=== PATIENT | female | born 1985 | race Caucasian/White ===

== ENCOUNTER 2016-07-10 06:45 | Inpatient (IN) | payer MEDICAID ==
[2016-07-10] MEDS ORDERED: PENICILLIN G-K 5 MILLION UNIT VIAL ONE ×3 (06:50→15:36)
[2016-07-10] MEDS ORDERED: OXYTOCIN/NORMAL SALINE 20 UNIT/1,000 ML RTUINJ ONE (07:22)
[2016-07-10 07:38] LABS: APPEARANCE,URINE CLOUDY; BILIRUBIN,URINE NEGATIVE (NEGATIVE); GLUCOSE, URINE NEGATIVE (NEGATIVE); KETONES,URINE NEGATIVE (NEGATIVE); LEUKOCYTE ESTERASE,URINE SMALL (NEGATIVE); NITRITE,URINE NEGATIVE (NEGATIVE); PROTEIN,URINE 30 mg/dL (NEGATIVE); UROBILINOGEN,URINE NEGATIVE mg/dL (<2.0)
[2016-07-10 07:58] LABS: URINE BARBITURATES SCREEN NEGATIVE; URINE METHADONE SCREEN NEGATIVE; URINE PHENCYCLIDINE SCREEN NEGATIVE
--- NOTE | 2016-07-10 08:01 | L&D Flow Sheet ---
LD Flowsheet Datetime Report Generated by CPN: 07/10/2016 08:00 Datetime: 07/10/2016 07:57 Pitocin (milliunit): Pitocin Increased to (milliunits) @ 4 (Dorie Edmundo, RN) Datetime: 07/10/2016 07:34 NBP Sys/Desire/Mean (mmHg): 127 (QS system process) : 81 (QS system process) : 99 (QS system process) Pulse: 83 (QS system process) LaborFlag: Antepartum (QS system process) Datetime: 07/10/2016 07:30 Monitor Mode: External; Palpation (Dorie Wyatt, RN) Frequency (min): irreg (Dorie Edmundo, RN) Quality: Mild (Dorie Edmundo, RN) Resting Tone (Palpate): Relaxed (Dorie Edmundo, RN) Monitor Mode: External US (Dorie Edmundo, RN) FHR Baseline Rate : 125 (Dorie Edmundo, RN) Variability: Moderate 6-25 bpm (Dorie Edmundo, RN) Accelerations: None (Dorie Edmundo, RN) Decelerations: None (Dorie Edmundo, RN) Datetime: 07/10/2016 07:27 Pitocin (milliunit): Pitocin Started (milliunits) @ 2 (Leilani Batista RN) Communication: RN at Bedside; RN Reviewed Strip; Report Given to @ Carley Wyatt RN (Leilani Batista RN) Communication Comments: Report given to Edmundo Sutton RN. Care relinquished at this time. (Leilani Batista, RN) Datetime: 07/10/2016 07:20 Antibiotics: Penicillin IV (Units) @ 5 million (Leilani Batista RN) Patient Care Comments: 18g inserted into pt left forearm, infusing without diffculty (Leilani Batista, RN) Datetime: 07/10/2016 07:15 Stage of : Antepartum (Leilani Batista, RN) Monitor Mode: External; Palpation (Leilani Batista RN) Frequency (min): 3-4 (Leilani Batista, RN) Quality: Mild (Leilani Batista, RN) Duration (sec): 40-80 (Leilani Batista, RN) Pattern: Normal: <= 5 Contractions in 10 Minutes (Leilani Batista, RN) Resting Tone (Palpate): Relaxed (Leilani Batista, RN) Monitor Mode: External US (Leilani Batista, RN) Monitor Interventions for FHR: Ultrasound Adjusted (Leilani Batista RN) FHR Baseline Rate : 140 (Leilani Batista RN) FHR Baseline Changes: No Baseline Change (Leilani Batista, RN) Variability: Moderate 6-25 bpm (Leilani Batista, RN) Accelerations: 15X15 (Leilani Batista, RN) Decelerations: None (Leilani Batista, RN) Communication: RN at Bedside; RN Reviewed Strip (Leilani Batista, RN) Datetime: 07/10/2016 07:14 Dilatation (cm): 3.0 (Leilani Batista, RN) Effacement (%): 50 (Leilani Batista, RN) Station: -2 (Leilani Batista, RN) Exam by: Dr Peters (Leilani Batista, RN) Vaginal Bleeding: None (Leilani Batista, RN) Cervix, Consistency: Moderate (Leilani Batista, RN) Cervix, Position: Posterior (Leilani Batista, RN) Datetime: 07/10/2016 07:13 Communication: Provider at Bedside (Leilani Batista, RN) Communication Comments: Dr Peters at bedside for cervical exam (Leilani Batista, RN) Datetime: 07/10/2016 07:04 NBP Sys/Desire/Mean (mmHg): 123 (QS system process) : 84 (QS system process) : 98 (QS system process) Pulse: 93 (QS system process) LaborFlag: Antepartum (QS system process) Datetime: 07/10/2016 07:00 Pain Scale: 0 (Leilani Batista, RN) Pain Presence: None/Denies (Leilani Batista, RN) Pain Type: N/A (Leilani Batista, RN) Vaginal Bleeding: None (Leilani Batista, RN) Level of Consciousness: Fully Conscious (Leilani Batista, RN) DTR's/Clonus: DTRs 2+; No Clonus (Leilani Batista, RN) Breath Sounds, Left: Clear and Equal (Leilani Batista, RN) Breath Sounds, Right: Clear and Equal (Leilani Batista, RN) Nausea/Vomiting: Denies (Leilani Batista, RN) RUQ Epigastric Pain: Denies (Leilani Batista, RN) LaborFlag: Antepartum (QS system process)
[2016-07-10] MEDS ORDERED: RINGERS SOLUTION,LACTATED 1,000 ML IV PRN (10:56)
[2016-07-10] MEDS ORDERED: OXYTOCIN/NORMAL SALINE 1,000 ML IV PRN ×2 (10:56→19:38)
[2016-07-10] MEDS ORDERED: RINGERS SOLUTION,LACTATED 300 ML IV ONE (10:56)
[2016-07-10 11:32] LABS: ABSOLUTE BASOPHILS # (AUTO) 0.1 10^3/uL (0.0-0.2); ABSOLUTE EOSINOPHILS # (AUTO) 0.1 10^3/uL (0.0-0.6); ABSOLUTE LYMPHOCYTES (AUTO) 2.6 10^3/uL (0.5-4.7); ABSOLUTE MONOCYTES (AUTO) 0.6 10^3/uL (0.1-1.4); ABSOLUTE NEUT (AUTO) 6.4 10^3/uL (1.7-8.2); BASOPHILS % (AUTO) 0.5 % (0-2); EOSINOPHILS % (AUTO) 0.7 % (0-6); HEMATOCRIT 34.8 % (36.0-47.0); HGB HCT DIFFERENCE 1.2; LYMPHOCYTES % (AUTO) 26.5 % (13-45); MEAN CORPUSCULAR HEMOGLOBIN 29.2 pg (27.0-33.4); MEAN CORPUSCULAR HGB CONC 34.5 g/dL (32.0-36.0); MEAN CORPUSCULAR VOLUME 85 fl (80-97); MONOCYTES % (AUTO) 6.1 % (3-13); RED CELL DISTRIBUTION WIDTH 13.2 % (11.5-14.0); SEGMENTED NEUTROPHILS % (AUTO) 66.2 % (42-78); WHITE BLOOD COUNT 9.7 10^3/uL (4.0-10.5)
--- NOTE | 2016-07-10 12:01 | L&D Flow Sheet ---
LD Flowsheet Datetime Report Generated by CPN: 07/10/2016 12:00 Datetime: 07/10/2016 11:55 Dilatation (cm): 5.0 (Dorie Edmundo, RN) Effacement (%): 50 (Dorie Edmundo, RN) Station: -1 (Dorie Edmundo, RN) Exam by: H. nguyễn CNM (Dorie Edmundo, RN) Datetime: 07/10/2016 11:52 Patient Position/Activity: Left Tilt (Dorie Edmundo, RN) Communication Comments: H. Nguyễn CNM at bdeside (Dorie Edmundo, RN) Datetime: 07/10/2016 11:48 I/O Interventions: Up to BR (Dorie Edmundo, RN) Datetime: 07/10/2016 11:32 Antibiotics: Penicillin IV (Units) @ 2.5 million (Dorie Edmundo, RN) Datetime: 07/10/2016 10:38 Monitor Mode: External; Palpation (Dorie Edmundo, RN) Frequency (min): 2-4 (Dorie Edmundo, RN) Quality: Mild (Dorie Edmundo, RN) Duration (sec): 60-90 (Dorie Edmundo, RN) Resting Tone (Palpate): Relaxed (Dorie Edmundo, RN) Monitor Mode: External US (Dorie Edmundo, RN) FHR Baseline Rate : 135 (Dorie Edmundo, RN) Variability: Moderate 6-25 bpm (Dorie Edmundo, RN) Accelerations: 15X15 (Dorie Edmundo, RN) Decelerations: None (Dorie Edmundo, RN) Datetime: 07/10/2016 10:30 Monitor Mode: External (Dorie Edmundo, RN) Frequency (min): 2-3 (Dorie Edmundo, RN) Quality: Mild (Dorie Edmundo, RN) Duration (sec): 60-70 (Dorie Edmundo, RN) Resting Tone (Palpate): Relaxed (Dorie Edmundo, RN) Monitor Mode: External US (Dorie Edmundo, RN) FHR Baseline Rate : 130 (Dorie Edmundo, RN) Variability: Moderate 6-25 bpm (Dorie Edmundo, RN) Accelerations: 15X15 (Dorie Edmundo, RN) Decelerations: None (Dorie Edmundo, RN) Datetime: 07/10/2016 10:00 Monitor Mode: External (Dorie Edmundo, RN) Frequency (min): 2-4 (Dorie Edmundo, RN) Quality: Mild (Dorie Edmundo, RN) Duration (sec): 60-90 (Dorie Edmundo, RN) Resting Tone (Palpate): Relaxed (Dorie Edmundo, RN) Monitor Mode: External US (Dorie Edmundo, RN) FHR Baseline Rate : 120 (Dorie Edmundo, RN) Variability: Moderate 6-25 bpm (Dorie Edmundo, RN) Accelerations: 15X15 (Dorie Edmundo, RN) Decelerations: None (Dorie Edmundo, RN) Datetime: 07/10/2016 09:55 Pitocin (milliunit): Pitocin Increased to (milliunits) @ 10 (Dorie Edmundo, RN) Datetime: 07/10/2016 09:34 NBP Sys/Desire/Mean (mmHg): 120 (QS system process) : 76 (QS system process) : 92 (QS system process) Pulse: 77 (QS system process) LaborFlag: Antepartum (QS system process) Datetime: 07/10/2016 09:30 Monitor Mode: External (Dorie Edmundo, RN) Frequency (min): irreg (Dorie Edmundo, RN) Quality: Mild (Dorie Edmundo, RN) Resting Tone (Palpate): Relaxed (Dorie Edmundo, RN) Monitor Mode: External US (Dorie Edmundo, RN) FHR Baseline Rate : 135 (Dorie Edmundo, RN) Variability: Moderate 6-25 bpm (Dorie Edmundo, RN) Accelerations: 15X15 (Dorie Edmundo, RN) Decelerations: None (Dorie Edmundo, RN) Datetime: 07/10/2016 09:03 I/O Interventions: Up to BR (Dorie Edmundo, RN) Datetime: 07/10/2016 09:02 Pitocin (milliunit): Pitocin Increased to (milliunits) @ 8 (Dorie Edmundo, RN) Datetime: 07/10/2016 09:00 Monitor Mode: External; Palpation (Dorie Edmundo, RN) Frequency (min): 2-5 (Dorie Edmundo, RN) Quality: Mild (Dorie Edmundo, RN) Duration (sec): 60-90 (Dorie Edmundo, RN) Resting Tone (Palpate): Relaxed (Dorie Edmundo, RN) Monitor Mode: External US (Dorie Edmundo, RN) FHR Baseline Rate : 135 (Dorie Edmundo, RN) Variability: Moderate 6-25 bpm (Dorie Edmundo, RN) Accelerations: 15X15 (Dorie Edmundo, RN) Decelerations: None (Dorie Edmundo, RN) Datetime: 07/10/2016 08:34 NBP Sys/Desire/Mean (mmHg): 126 (QS system process) : 76 (QS system process) : 92 (QS system process) Pulse: 76 (QS system process) LaborFlag: Antepartum (QS system process) Datetime: 07/10/2016 08:30 Monitor Mode: External (Dorie Edmundo, RN) Frequency (min): irreg (Dorie Edmundo, RN) Quality: Mild (Dorie Edmundo, RN) Resting Tone (Palpate): Relaxed (Dorei Edmundo, RN) Monitor Mode: External US (Dorie Edmundo, RN) FHR Baseline Rate : 130 (Dorie Edmundo, RN) Variability: Moderate 6-25 bpm (Dorie Edmundo, RN) Accelerations: 15X15 (Dorie Edmundo, RN) Decelerations: None (Dorie Edmundo, RN) Datetime: 07/10/2016 08:27 Pitocin (milliunit): Pitocin Increased to (milliunits) @ 6 (Dorie Edmundo, RN) Datetime: 07/10/2016 08:25 Communication Comments: H. Nguyễn CNM at bedside (Dorie Edmundo, RN) Datetime: 07/10/2016 08:04 NBP Sys/Desire/Mean (mmHg): 131 (QS system process) : 79 (QS system process) : 100 (QS system process) Pulse: 80 (QS system process) LaborFlag: Antepartum (QS system process) Datetime: 07/10/2016 08:00 Monitor Mode: External (Dorie Edmundo, RN) Frequency (min): irreg (Dorie Edmundo, RN) Quality: Mild (Dorie Edmundo, RN) Resting Tone (Palpate): Relaxed (Dorie Edmundo, RN) Monitor Mode: External US (Dorie Edmundo, RN) FHR Baseline Rate : 135 (Dorie Edmundo, RN) Variability: Moderate 6-25 bpm (Dorie Edmundo, RN) Accelerations: 15X15 (Dorie Edmundo, RN) Decelerations: None (Dorie Edmundo, RN)
[2016-07-10] MEDS ORDERED: EPHEDRINE SULFATE INJ 50 MG/1 ML AMPULE ONE (14:24)
[2016-07-10] MEDS ORDERED: FENTANYL/BUPIVACAINE/NS/PF 200 MCG/100 ML RTUINJ EPI ONE (14:25)
[2016-07-10] MEDS ORDERED: BUPIVACAINE HCL 0.25 % INJ/PF (2.5 MG/1 ML) 30 ML VIAL ONE (14:25)
--- NOTE | 2016-07-10 15:41 | L&D Progress Notes ---
PROGRESS NOTES Datetime Report Generated by CPN: 07/10/2016 15:40 PROGRESS NOTE Impression: Normal Progression of Labor; Reassuring Heart Rate Impression: Normal Progression of Labor; Reassuring Heart Rate Procedures: Sterile Vag Exam Procedures: Sterile Vag Exam Plan: Continue Present Management; Induction Plan: Continue Present Management; Induction Informed Consent Obtained: Vaginal Delivery Informed Consent Obtained: Vaginal Delivery; Risks, Benefits and Alternatives Discussed Vital Signs : Reviewed; Within Normal Limits Vital Signs : Reviewed; Within Normal Limits Comment: Pt comfortable with epidural s/p 3 doses of pcn continue pitocin per protocol anticipate VAGINAL EXAM Dilatation: 8 Dilatation: 3 Effacement: 70 Effacement: 50 Station: 0 Station: -2 Contractions: 2-4 Contractions: none MEMBRANES Membranes: Intact Membranes: Intact FETUS A FHR - Baseline: 126 Monitoring: External US Variability: Moderate 6-25bpm Accelerations: 15X15 Decelerations: None FHR Category: Category I Estimated Weight (gm): 8 Presentation: Vertex SIGNATURE SIGNATURE: [id number] SIGNATURE: [id number] SIGNATURE: [id number] Assignment: Jemima De La O MD Signature: with User ID: [email or web address] : with User ID: [email or web address]
--- NOTE | 2016-07-10 16:01 | L&D Flow Sheet ---
LD Flowsheet Datetime Report Generated by CPN: 07/10/2016 16:00 Datetime: 07/10/2016 15:46 NBP Sys/Desire/Mean (mmHg): 93 (QS system process) : 55 (QS system process) : 70 (QS system process) Pulse: 86 (QS system process) LaborFlag: Antepartum (QS system process) Datetime: 07/10/2016 15:34 Dilatation (cm): 7.5 (Dorie Edmundo, RN) Effacement (%): 70 (Dorie Edmundo, RN) Station: 0 (Dorie Edmundo, RN) Exam by: Robson Adrian CNM (Dorie Edmundo, RN) Cervix, Position: Anterior (Dorie Edmundo, RN) Datetime: 07/10/2016 15:29 NBP Sys/Desire/Mean (mmHg): 114 (QS system process) : 60 (QS system process) : 82 (QS system process) Pulse: 80 (QS system process) LaborFlag: Antepartum (QS system process) Datetime: 07/10/2016 15:16 NBP Sys/Desire/Mean (mmHg): 116 (QS system process) : 59 (QS system process) : 82 (QS system process) Pulse: 71 (QS system process) LaborFlag: Antepartum (QS system process) Datetime: 07/10/2016 15:00 Monitor Mode: External; Palpation (Dorie Edmundo, RN) Frequency (min): 2-3 (Dorie Edmundo, RN) Quality: Moderate (Dorie Edmundo, RN) Duration (sec): 60-90 (Dorie Edmundo, RN) Resting Tone (Palpate): Relaxed (Dorie Edmundo, RN) Monitor Mode: External US (Dorie Edmundo, RN) FHR Baseline Rate : 125 (Dorie Edmundo, RN) Variability: Moderate 6-25 bpm (Dorie Edmundo, RN) Accelerations: 15X15 (Dorie Edmundo, RN) Decelerations: None (Dorie Edmundo, RN) Datetime: 07/10/2016 14:56 NBP Sys/Desire/Mean (mmHg): 115 (QS system process) : 56 (QS system process) : 80 (QS system process) Pulse: 77 (QS system process) LaborFlag: Antepartum (QS system process) Datetime: 07/10/2016 14:54 NBP Sys/Desire/Mean (mmHg): 108 (QS system process) : 69 (QS system process) : 82 (QS system process) Pulse: 82 (QS system process) LaborFlag: Antepartum (QS system process) Datetime: 07/10/2016 14:53 NBP Sys/Desire/Mean (mmHg): 117 (QS system process) : 67 (QS system process) : 87 (QS system process) Pulse: 80 (QS system process) LaborFlag: Antepartum (QS system process) Datetime: 07/10/2016 14:52 NBP Sys/Desire/Mean (mmHg): 118 (QS system process) : 71 (QS system process) : 89 (QS system process) Pulse: 83 (QS system process) LaborFlag: Antepartum (QS system process) Datetime: 07/10/2016 14:51 NBP Sys/Desire/Mean (mmHg): 121 (QS system process) : 65 (QS system process) : 88 (QS system process) Pulse: 81 (QS system process) Patient Care Comments: left tilt (Dorie Wyatt RN) LaborFlag: Antepartum (QS system process) Datetime: 07/10/2016 14:50 NBP Sys/Desire/Mean (mmHg): 127 (QS system process) : 65 (QS system process) : 90 (QS system process) Pulse: 81 (QS system process) I/O Interventions: George Cath Inserted (Dorie Wyatt RN) Patient Care Comments: draining clear yellow urine without difficulty, pt tolerated procedure well (Dorie Wyatt RN) LaborFlag: Antepartum (QS system process) Datetime: 07/10/2016 14:49 NBP Sys/Desire/Mean (mmHg): 134 (QS system process) : 58 (QS system process) : 83 (QS system process) Pulse: 85 (QS system process) LaborFlag: Antepartum (QS system process) Datetime: 07/10/2016 14:47 Patient Care Comments: supine after epidural placement (Dorie Edmundo, RN) Datetime: 07/10/2016 14:45 NBP Sys/Desire/Mean (mmHg): 140 (QS system process) : 65 (QS system process) : 94 (QS system process) Pulse: 84 (QS system process) Pulse: 82 (QS system process) SpO2 (%): 99 (QS system process) LaborFlag: Antepartum (QS system process) Datetime: 07/10/2016 14:44 NBP Sys/Desire/Mean (mmHg): 143 (QS system process) NBP Sys/Desire/Mean (mmHg): 149 (QS system process) : 65 (QS system process) : 67 (QS system process) : 94 (QS system process) : 96 (QS system process) Pulse: 84 (QS system process) Pulse: 88 (QS system process) LaborFlag: Antepartum (QS system process) Datetime: 07/10/2016 14:43 Epidural Procedure: Cath Placed (Dorie Edmundo, RN) Epidural Procedure: Test Dose (Dorie Edmundo, RN) Datetime: 07/10/2016 14:42 NBP Sys/Desire/Mean (mmHg): 141 (QS system process) : 73 (QS system process) : 101 (QS system process) Pulse: 93 (QS system process) LaborFlag: Antepartum (QS system process) Datetime: 07/10/2016 14:40 NBP Sys/Desire/Mean (mmHg): 139 (QS system process) : 70 (QS system process) : 99 (QS system process) Pulse: 81 (QS system process) Pulse: 82 (QS system process) SpO2 (%): 100 (QS system process) LaborFlag: Antepartum (QS system process) Datetime: 07/10/2016 14:38 NBP Sys/Desire/Mean (mmHg): 138 (QS system process) : 83 (QS system process) : 103 (QS system process) Pulse: 86 (QS system process) LaborFlag: Antepartum (QS system process) Datetime: 07/10/2016 14:35 NBP Sys/Desire/Mean (mmHg): 135 (QS system process) : 86 (QS system process) : 105 (QS system process) Pulse: 84 (QS system process) Pulse: 82 (QS system process) SpO2 (%): 100 (QS system process) Communication Comments: Dr. Cadena at bedside (Dorie EdmundoSOCO augustine) LaborFlag: Antepartum (QS system process) Datetime: 07/10/2016 14:30 Monitor Mode: External (Dorie Edmundo, RN) Frequency (min): 2-4 (Dorie Edmundo, RN) Quality: Moderate (Dorie Edmundo, RN) Duration (sec): 60-80 (Dorie Edmundo, RN) Resting Tone (Palpate): Relaxed (Dorie Edmundo, RN) Monitor Mode: External US (Dorie Edmundo, RN) FHR Baseline Rate : 125 (Dorie Edmundo, RN) Variability: Moderate 6-25 bpm (Dorie Edmundo, RN) Accelerations: 15X15 (Dorie Edmundo, RN) Decelerations: None (Dorie Edmundo, RN) Datetime: 07/10/2016 14:23 Procedure Verify: Correct Patient Identity (Dorie Wyatt, RN) Anesthesia Plans: Epidural (Dorie Wyatt, RN) Anesthesia Comments: jimena called and informed of pt request for epidural (Dorie Wyatt, RN) Datetime: 07/10/2016 14:21 Communication Comments: h. Nguyễn CNM on unit, informed of pt SVE, no new orders recieved at this time (Dorie Wyatt, RN) Datetime: 07/10/2016 14:19 Dilatation (cm): 6.0 (Dorie Wyatt, RN) Effacement (%): 70 (Dorie Edmundo, RN) Station: -2 (Dorie Edmundo, RN) Exam by: Carley Wyatt RN (Dorie Edmundo, RN) Datetime: 07/10/2016 14:14 NBP Sys/Desire/Mean (mmHg): 139 (QS system process) : 81 (QS system process) : 105 (QS system process) Pulse: 82 (QS system process) LaborFlag: Antepartum (QS system process) Datetime: 07/10/2016 14:13 Pulse: 89 (QS system process) SpO2 (%): 100 (QS system process) LaborFlag: Antepartum (QS system process) Datetime: 07/10/2016 14:00 Monitor Mode: External (Dorie Edmundo, RN) Frequency (min): 2-4 (Dorie Edmundo, RN) Quality: Moderate (Dorie Edmundo, RN) Duration (sec): 60-80 (Dorie Edmundo, RN) Resting Tone (Palpate): Relaxed (Dorie Edmundo, RN) Monitor Mode: External US (Dorie Edmundo, RN) FHR Baseline Rate : 125 (Dorie Edmundo, RN) Variability: Moderate 6-25 bpm (Dorie Edmundo, RN) Accelerations: 15X15 (Dorie Edmundo, RN) Decelerations: None (Dorie Edmundo, RN) Datetime: 07/10/2016 13:38 Anesthesia Plans: Epidural (Dorie Edmundo, RN) Anesthesia Comments: LR bolus for epidural started (Dorie Edmundo, RN) Datetime: 07/10/2016 13:30 Monitor Mode: External (Dorie Edmundo, RN) Frequency (min): 2-6 (Dorie Edmundo, RN) Quality: Mild/Moderate (Dorie Edmundo, RN) Duration (sec): 60-80 (Dorie Edmundo, RN) Resting Tone (Palpate): Relaxed (Dorie Edmundo, RN) Monitor Mode: External US (Dorie Edmundo, RN) FHR Baseline Rate : 135 (Dorie Edmundo, RN) Variability: Moderate 6-25 bpm (Dorie Edmundo, RN) Accelerations: 15X15 (Dorie Edmundo, RN) Decelerations: None (Dorie Edmundo, RN) Datetime: 07/10/2016 13:09 Patient Position/Activity: Peanut Ball; Right Extreme (Dorie Edmundo, RN) Datetime: 07/10/2016 13:00 Monitor Mode: External (Dorie Edmundo, RN) Frequency (min): 2-5 (Dorie Edmundo, RN) Quality: Mild/Moderate (Dorie Edmundo, RN) Duration (sec): 60-80 (Dorie Edmundo, RN) Resting Tone (Palpate): Relaxed (Dorie Edmundo, RN) Monitor Mode: External US (Dorie Edmundo, RN) FHR Baseline Rate : 125 (Dorie Edmundo, RN) Variability: Moderate 6-25 bpm (Dorie Edmundo, RN) Accelerations: 15X15 (Dorie Edmundo, RN) Decelerations: None (Dorie Edmundo, RN) Datetime: 07/10/2016 12:30 Monitor Mode: External (Dorie Edmundo, RN) Frequency (min): 2-5 (Dorie Edmundo, RN) Quality: Mild/Moderate (Dorie Edmundo, RN) Duration (sec): 60-80 (Dorie Edmundo, RN) Resting Tone (Palpate): Relaxed (Dorie Edmundo, RN) Monitor Mode: External US (Dorie Edmundo, RN) FHR Baseline Rate : 125 (Dorie Edmundo, RN) Variability: Moderate 6-25 bpm (Dorie Edmundo, RN) Accelerations: None (Dorie Edmundo, RN) Decelerations: None (Dorie Edmundo, RN) Pitocin (milliunit): Pitocin Increased to (milliunits) @ 16 (Dorie Edmundo, RN) Datetime: 07/10/2016 12:00 Monitor Mode: External (Dorie Edmundo, RN) Frequency (min): 2-4 (Dorie Edmundo, RN) Quality: Mild/Moderate (Dorie Edmundo, RN) Duration (sec): 60-90 (Dorie Edmundo, RN) Resting Tone (Palpate): Relaxed (Dorie Edmundo, RN) Monitor Mode: External US (Dorie Edmundo, RN) FHR Baseline Rate : 135 (Dorie Edmundo, RN) Variability: Moderate 6-25 bpm (Dorie Edmundo, RN) Accelerations: 15X15 (Dorie Edmundo, RN) Decelerations: None (Dorie Edmundo, RN)
[2016-07-10] MEDS ORDERED: LIDOCAINE 1% INJ-PF (10 MG/ML) 30 ML SDV ONE (18:09)
[2016-07-10] MEDS ORDERED: MISOPROSTOL 0.2 MG TABLET ONE (18:09)
[2016-07-10] MEDS ORDERED: DIBUCAINE 1% OINTMENT 28 GM TP PRN (19:38)
[2016-07-10] MEDS ORDERED: ACETAMINOPHEN WITH CODEINE #3 TABLET PO PRN (19:38)
[2016-07-10] MEDS ORDERED: MEASLES,MUMPS&RUBELLA VACC/PF 0.5 ML VIAL SUBCUT PRN (19:38)
[2016-07-10] MEDS ORDERED: ZOLPIDEM TARTRATE 5 MG TABLET PO PRN (19:38)
[2016-07-10] MEDS ORDERED: DIPH/PERTUSS(ACELL)/TETANUS VAC/PF 0.5 ML SYR (>=10YO) IM PRN (19:38)
[2016-07-10] MEDS ORDERED: BENZOCAINE/MENTHOL AEROSOL SPRAY 56 ML TOP PRN (19:38)
--- NOTE | 2016-07-10 20:01 | L&D Flow Sheet ---
LD Flowsheet Datetime Report Generated by CPN: 07/10/2016 20:00 Datetime: 07/10/2016 19:59 NBP Sys/Desire/Mean (mmHg): 115 (QS system process) : 55 (QS system process) : 79 (QS system process) Pulse: 83 (QS system process) Datetime: 07/10/2016 19:44 NBP Sys/Desire/Mean (mmHg): 114 (QS system process) : 59 (QS system process) : 81 (QS system process) Pulse: 72 (QS system process) Respirations: 18 (Radha Kossmann, RN) Datetime: 07/10/2016 19:30 Stage of : Recovery (Radha Pelaezann, RN) Respirations: 18 (Radha Luis Eduardosmann, RN) Temperature (F): 97.4 (Radha Kossmann, RN) Temperature (C): 36.3 (QS system process) Temperature Route: Oral (Radha Pelaezann, RN) Pain Scale: 0 (Radha Luis Eduardosmann, RN) Pain Presence: None/Denies (Radha Luis Eduardosmann, RN) Level of Consciousness: Fully Conscious (Radha Luis Eduardosmann, RN) DTR's/Clonus: DTRs 2+; No Clonus (Radha Luis Eduardosmann, RN) Headache: Denies (Radha Luis Eduardosmann, RN) Breath Sounds, Left: Clear and Equal (Radha Luis Eduardosmann, RN) Breath Sounds, Right: Clear and Equal (Radha Luis Eduardosmann, RN) Nausea/Vomiting: Denies (Radha Luis Eduardosmann, RN) RUQ Epigastric Pain: Denies (Radha Kossmann, RN) Datetime: 07/10/2016 19:29 NBP Sys/Desire/Mean (mmHg): 114 (QS system process) : 59 (QS system process) : 83 (QS system process) Pulse: 76 (QS system process) LaborFlag: Antepartum (QS system process) Datetime: 07/10/2016 19:15 NBP Sys/Desire/Mean (mmHg): 113 (QS system process) : 56 (QS system process) : 80 (QS system process) Pulse: 79 (QS system process) Pain Scale: 0 (Dorie Edmundo, RN) Pain Presence: None/Denies (Dorie Edmundo, RN) Pain Type: N/A (Dorie Edmundo, RN) LaborFlag: Antepartum (QS system process) Datetime: 07/10/2016 19:00 Respirations: 15 (Dorie Edmundo, RN) Pain Scale: 0 (Dorie Edmundo, RN) Pain Presence: None/Denies (Dorie Edmundo, RN) Pain Type: N/A (Dorie Edmundo, RN) LaborFlag: Antepartum (QS system process) Datetime: 07/10/2016 18:48 Respirations: 16 (Dorie Edmundo, RN) Pain Scale: 0 (Dorie Edmundo, RN) Pain Presence: None/Denies (Dorie Edmundo, RN) Pain Type: N/A (Dorie Edmundo, RN) LaborFlag: Antepartum (QS system process) Datetime: 07/10/2016 18:44 Monitor Mode: External (Dorie Edmundo, RN) Frequency (min): 2-3 (Dorie Edmundo, RN) Quality: Moderate to Strong (Dorie Edmundo, RN) Duration (sec): 60-70 (Dorie Edmundo, RN) Resting Tone (Palpate): Relaxed (Dorie Edmundo, RN) Monitor Mode: External US (Dorie Edmundo, RN) FHR Baseline Rate : 145 (Dorie Edmundo, RN) Variability: Moderate 6-25 bpm (Dorie Edmundo, RN) Accelerations: 15X15 (Dorie Edmundo, RN) Decelerations: Variable (Dorie Edmundo, RN) Stage 2 Comments: of viable baby girl (Dorie Edmundo, RN) Datetime: 07/10/2016 18:30 Monitor Mode: External; Palpation (Dorie Edmundo, RN) Frequency (min): 2-3 (Dorie Edmundo, RN) Quality: Moderate to Strong (Dorie Edmundo, RN) Duration (sec): 60-80 (Dorie Edmundo, RN) Resting Tone (Palpate): Relaxed (Dorie Edmundo, RN) Monitor Mode: External US (Dorie Edmundo, RN) FHR Baseline Rate : 130 (Dorie Edmundo, RN) Variability: Moderate 6-25 bpm (Dorie Edmundo, RN) Accelerations: 15X15 (Dorie Edmundo, RN) Decelerations: Variable (Dorie Edmundo, RN) Datetime: 07/10/2016 18:25 Pushing: Coached on Pushing; Urge to Push (Dorie Edmundo, RN) Pushing Position: Pushing with Contractions (Dorie Edmundo, RN) Pushing Progress: Descent with Pushing (Dorie Edmundo, RN) Stage 2 Comments: RN and CNM remain at bedside while pushing with pt and assessing FHTs (Dorie Edmundo, RN) Datetime: 07/10/2016 18:22 I/O Interventions: George Discontinued (Dorie Edmundo, RN) Datetime: 07/10/2016 18:20 Dilatation (cm): 10.0 (Dorie Edmundo, RN) Effacement (%): 100 (Dorie Edmundo, RN) Station: 1 (Dorie Edmundo, RN) Exam by: Robson Adrian CNM (Dorie Edmundo, RN) Datetime: 07/10/2016 18:15 NBP Sys/Desire/Mean (mmHg): 124 (QS system process) : 72 (QS system process) : 90 (QS system process) Pulse: 86 (QS system process) LaborFlag: Antepartum (QS system process) Datetime: 07/10/2016 18:00 NBP Sys/Desire/Mean (mmHg): 126 (QS system process) : 71 (QS system process) : 92 (QS system process) Pulse: 83 (QS system process) Monitor Mode: External (Dorie Edmundo, RN) Frequency (min): 2-3 (Dorie Edmundo, RN) Quality: Moderate to Strong (Dorie Edmundo, RN) Duration (sec): 60-80 (Dorie Edmundo, RN) Resting Tone (Palpate): Relaxed (Dorie Edmundo, RN) Monitor Mode: External US (Dorie Edmundo, RN) FHR Baseline Rate : 130 (Dorie Edmundo, RN) Variability: Moderate 6-25 bpm (Dorie Edmundo, RN) Accelerations: None (Dorie Edmundo, RN) Decelerations: Variable (Dorie Edmundo, RN) LaborFlag: Antepartum (QS system process) Datetime: 07/10/2016 17:44 NBP Sys/Desire/Mean (mmHg): 132 (QS system process) : 80 (QS system process) : 101 (QS system process) Pulse: 98 (QS system process) Patient Position/Activity: Tailors (Dorie Wyatt RN) LaborFlag: Antepartum (QS system process) Datetime: 07/10/2016 17:42 Dilatation (cm): 9.0 (Dorie Wyatt, SOCO) Effacement (%): 100 (Dorie Wyatt, SOCO) Station: 0 (Dorie Wyatt RN) Exam by: Carley Wyatt (Dorie Wyatt, SOCO) Vaginal Exam Comments: Robson Adrian CNM informed of SVE. No new orders at this time (Dorie Wyatt, SOCO) Datetime: 07/10/2016 17:30 NBP Sys/Desire/Mean (mmHg): 141 (QS system process) : 86 (QS system process) : 108 (QS system process) Pulse: 85 (QS system process) Monitor Mode: External (Dorie Edmundo, RN) Frequency (min): 2-3 (Dorie Edmundo, RN) Quality: Moderate to Strong (Dorie Edmundo, RN) Duration (sec): 60-90 (Dorie Edmundo, RN) Resting Tone (Palpate): Relaxed (Dorie Edmundo, RN) Monitor Mode: External US (Dorie Edmundo, RN) FHR Baseline Rate : 135 (Dorie Edmundo, RN) Variability: Moderate 6-25 bpm (Dorie Edmundo, RN) Accelerations: 15X15 (Dorie Edmundo, RN) Decelerations: None (Dorie Edmundo, RN) LaborFlag: Antepartum (QS system process) Datetime: 07/10/2016 17:29 Temperature (F): 98.0 (Dorie Edmundo, RN) Temperature (C): 36.7 (QS system process) LaborFlag: Antepartum (QS system process) Datetime: 07/10/2016 17:15 Patient Position/Activity: Right Lateral; Peanut Ball (Dorie Edmundo, RN) Datetime: 07/10/2016 17:00 Monitor Mode: External (Dorie Edmundo, RN) Frequency (min): 3-4 (Dorie Edmundo, RN) Quality: Moderate (Dorie Edmundo, RN) Duration (sec): 60-80 (Dorie Edmundo, RN) Resting Tone (Palpate): Relaxed (Dorie Edmundo, RN) Monitor Mode: External US (Dorie Edmundo, RN) FHR Baseline Rate : 125 (Dorie Edmundo, RN) Variability: Moderate 6-25 bpm (Dorie Edmundo, RN) Accelerations: 15X15 (Dorie Edmundo, RN) Decelerations: None (Dorie Edmundo, RN) Datetime: 07/10/2016 16:59 NBP Sys/Desire/Mean (mmHg): 119 (QS system process) : 58 (QS system process) : 84 (QS system process) Pulse: 78 (QS system process) LaborFlag: Antepartum (QS system process) Datetime: 07/10/2016 16:45 NBP Sys/Desire/Mean (mmHg): 119 (QS system process) : 60 (QS system process) : 83 (QS system process) Pulse: 74 (QS system process) LaborFlag: Antepartum (QS system process) Datetime: 07/10/2016 16:30 Monitor Mode: External (Dorie Edmundo, RN) Frequency (min): 2-4 (Dorie Edmundo, RN) Quality: Moderate (Dorie Edmundo, RN) Duration (sec): 60-90 (Dorie Edmundo, RN) Resting Tone (Palpate): Relaxed (Dorie Edmundo, RN) Monitor Mode: External US (Dorie Edmundo, RN) FHR Baseline Rate : 125 (Dorie Edmundo, RN) Variability: Moderate 6-25 bpm (Dorie Edmundo, RN) Accelerations: 15X15 (Dorie Edmundo, RN) Decelerations: None (Dorie Edmundo, RN) Datetime: 07/10/2016 16:29 NBP Sys/Desire/Mean (mmHg): 105 (QS system process) : 76 (QS system process) : 84 (QS system process) Pulse: 77 (QS system process) Pitocin (milliunit): Pitocin Increased to (milliunits) @ 18 (Dorie Wyatt RN) Patient Position/Activity: Left Lateral; Peanut Ball (Dorie Wyatt RN) LaborFlag: Antepartum (QS system process) Datetime: 07/10/2016 16:15 NBP Sys/Desire/Mean (mmHg): 99 (QS system process) : 58 (QS system process) : 73 (QS system process) Pulse: 90 (QS system process) LaborFlag: Antepartum (QS system process) Datetime: 07/10/2016 16:14 Pain Scale: 0 (Dorie Edmundo, RN) LaborFlag: Antepartum (QS system process) Datetime: 07/10/2016 16:01 NBP Sys/Desire/Mean (mmHg): 96 (QS system process) : 57 (QS system process) : 71 (QS system process) Pulse: 78 (QS system process) LaborFlag: Antepartum (QS system process) Datetime: 07/10/2016 16:00 Monitor Mode: External; Palpation (Dorie Edmundo, RN) Frequency (min): 2-3 (Dorie Edmundo, RN) Quality: Moderate (Dorie Edmundo, RN) Duration (sec): 60-90 (Dorie Edmundo, RN) Resting Tone (Palpate): Relaxed (Dorie Edmundo, RN) Monitor Mode: External US (Dorie Edmundo, RN) FHR Baseline Rate : 130 (Dorie Edmundo, RN) Variability: Moderate 6-25 bpm (Dorie Edmundo, RN) Accelerations: 15X15 (Dorie Wyatt RN) Decelerations: None (Dorie Wyatt RN)
[2016-07-10] MEDS ORDERED: IBUPROFEN 800 MG TABLET ONE (20:05)
[2016-07-10] MEDS ORDERED: ACETAMINOPHEN WITH CODEINE #3 TABLET ONE (20:05)
[2016-07-10] MEDS: ACETAMINOPHEN WITH CODEINE #3 TABLET PO PRN (20:11)
[2016-07-10] MEDS: IBUPROFEN 800 MG TABLET PO SCH (20:12)
--- NOTE | 2016-07-10 20:21 | Delivery Summary ---
Del Sum A-C Datetime Report Generated by CPN: 07/10/2016 20:20 ADMISSION DATA Chief Complaint: Scheduled Induction of Labor Indication for Induction: Post Dates Admission Impression: Term, Intrauterine Admit Provider Comments: 30yo at 41+0ega presents for scheduled IOL. Cvx on 07/03 was 3/th/hi. GBS pos - PCN for GBS prophy. Anticpate . Pitocin ordered for IOL. Plan for PCN then when close to next dose of PCN will perform AROM. DELIVERY PERSONNEL Delivery Doctor:: Sandra Adrian CNM Labor and Delivery Nurse:: Dorie Wyatt RN Book Jogger/CYNDIE: Kary Knapp CNA II MATERNAL INFORMATION Delivery Anesthesia: Epidural Medications After Delivery: Pitocin Drip 20 Units/1000ml NSS Estimated Blood Loss (ml): 200 Maternal Complications: None Provider Comments: of viable female , head, shoulders, and body delivered without difficulty. Infant with spontaneous cry and respirations, to maternal abdomen, cord clamped X2 after 2 min delay, by pts , spontaneous delivery of placenta, appears intact, 3 VC. Hemostasis acheived with external fundal massage and IV pitocin, repair as above, mother and infant in stable condition, routine pp care. LABOR SUMMARY EDC: 07/03/2016 00:00 No. Babies in Womb: 1 Labor Anesthesia: Epidural LABOR INFORMATION Reason for Induction: Post Dates Onset of Labor: 07/10/2016 14:00 Complete Dilatation: 07/10/2016 18:20 Oxytocin: Induction Group B Beta Strep: Positive Antibiotics # of Doses: 3 Antibiotics Time of Last Dose: 1533 Steroids Given: None Reason Steroids Not Administered: Not Applicable MEMBRANES Membranes Rupture Method: Artificial Rupture of Membranes: 07/10/2016 11:55 Length of Rupture (hr): 6.82 Amniotic Fluid Color: Clear Amniotic Fluid Amount: Moderate Amniotic Fluid Odor: Normal STAGES OF LABOR Stage 1 hr: 4 Stage 1 min: 20 Stage 2 hr: 0 Stage 2 min: 24 Stage 3 hr: 0 Stage 3 min: 4 Total Time in Labor hr: 4 Total Time in Labor min: 48 VAGINAL DELIVERY Episiotomy: None Laceration Extension: Second Degree Laceration Type: Perineal Laceration Repair: Yes Laceration Repair Note: second degree perineal laceration repaired with 2-0 chromic in usual fashion using epidural anesthesia Sponge Count Correct: N/A Sharps Count Correct: N/A BABY A INFORMATION Delivery Date/Time: 07/10/2016 18:44 Method of Delivery: Vaginal Born in Route : No : N/A Forceps: N/A Vacuum Extraction: N/A Shoulder Dystocia : No PRESENTATION/POSITION BABY A Presentation: Cephalic Cephalic Presentation: Vertex Breech Presentation: N/A PLACENTA INFORMATION BABY A Placenta Delivery Time : 07/10/2016 18:48 Placenta Method of Delivery: Spontaneous Placenta Status: Delivered SCORES BABY A Heart Rate 1 min: >100 bpm Resp Effort 1 min: Good Cry Reflex Irritability 1 min: Cough or Sneeze or Pulls Away Muscle Tone 1 min: Active Motion Color 1 min: Body [place], Extremities Blue Resuscitation Effort 1 min: Tactile Stimulation SCORE 1 MIN: 9 Heart Rate 5 min: >100 bpm Resp Effort 5 min: Good Cry Reflex Irritability 5 min: Cough or Sneeze or Pulls Away Muscle Tone 5 min: Active Motion Color 5 min: Body [place], Extremities Blue Resuscitation Effort 5 min: Tactile Stimulation SCORE 5 MIN: 9 INFANT INFORMATION BABY A Gestational Age at Delivery: 41.0 Gestational Status: Late Term- 41- 41.6 Weeks Infant Outcome : Liveborn Infant Condition : Stable Sex: Female IDENTIFICATION BABY A Infant Verification Date/Time: 07/10/2016 18:49 ID Band Number: [id number] Mother's Name Verified: Yes RN Verifying : S Mauro RN Additional Verifying Personnel: D Johann US WEIGHT/LENGTH BABY A Birthweight (gm): 4275 Infant Weight (lb): 9 Weight (oz): 7 Infant Length (in): 21.50 Infant Length (cm): 54.61 CORD INFORMATION BABY A No. Cord Vessels: 3 Nuchal Cord : N/A Cord Blood Taken: Yes-For Storage (Mom's Blood type +) Infant Suction: None ASSESSMENT BABY A Complications: None Physical Findings at Delivery: Within Normal Limits Respirations: Appears Normal Skin to Skin: Yes Skin to Skin Time (min): 60 Eggs Inspector/ALS Called : No Infant Care By: Carley Wyatt RN SIGNATURES Assignment: Jemima De La O MD Signature: with User ID: [email or web address] : with User ID: [email or web address]
--- NOTE | 2016-07-10 20:22 | Delivery Summary ---
Del Sum A-C Datetime Report Generated by CPN: 07/10/2016 20:21 ADMISSION DATA Chief Complaint: Scheduled Induction of Labor Indication for Induction: Post Dates Admission Impression: Term, Intrauterine Admit Provider Comments: 30yo at 41+0ega presents for scheduled IOL. Cvx on 07/03 was 3/th/hi. GBS pos - PCN for GBS prophy. Anticpate . Pitocin ordered for IOL. Plan for PCN then when close to next dose of PCN will perform AROM. DELIVERY PERSONNEL Delivery Doctor:: Sandra Adrian CNM Labor and Delivery Nurse:: Dorie Wyatt RNpublic health microbiologist Nurse:: SOCO Kim/CYNDIE: Kary Knapp CNA II MATERNAL INFORMATION Delivery Anesthesia: Epidural Medications After Delivery: Pitocin Drip 20 Units/1000ml NSS Estimated Blood Loss (ml): 200 Maternal Complications: None Provider Comments: of viable female infant, head, shoulders, and body delivered without difficulty. with spontaneous cry and respirations, to maternal abdomen, cord clamped X2 after 2 min delay, by pts , spontaneous delivery of placenta, appears intact, 3 VC. Hemostasis acheived with external fundal massage and IV pitocin, repair as above, mother and in stable condition, routine pp care. LABOR SUMMARY EDC: 07/03/2016 00:00 No. Babies in Womb: 1 Labor Anesthesia: Epidural LABOR INFORMATION Reason for Induction: Post Dates Onset of Labor: 07/10/2016 14:00 Complete Dilatation: 07/10/2016 18:20 Oxytocin: Induction Group B Beta Strep: Positive Antibiotics # of Doses: 3 Antibiotics Time of Last Dose: 1533 Steroids Given: None Reason Steroids Not Administered: Not Applicable MEMBRANES Membranes Rupture Method: Artificial Rupture of Membranes: 07/10/2016 11:55 Length of Rupture (hr): 6.82 Amniotic Fluid Color: Clear Amniotic Fluid Amount: Moderate Amniotic Fluid Odor: Normal STAGES OF LABOR Stage 1 hr: 4 Stage 1 min: 20 Stage 2 hr: 0 Stage 2 min: 24 Stage 3 hr: 0 Stage 3 min: 4 Total Time in Labor hr: 4 Total Time in Labor min: 48 VAGINAL DELIVERY Episiotomy: None Laceration Extension: Second Degree Laceration Type: Perineal Laceration Repair: Yes Laceration Repair Note: second degree perineal laceration repaired with 2-0 chromic in usual fashion using epidural anesthesia Sponge Count Correct: N/A Sharps Count Correct: N/A BABY A INFORMATION Infant Delivery Date/Time: 07/10/2016 18:44 Method of Delivery: Vaginal Born in Route : No : N/A Forceps: N/A Vacuum Extraction: N/A Shoulder Dystocia : No PRESENTATION/POSITION BABY A Presentation: Cephalic Cephalic Presentation: Vertex Breech Presentation: N/A PLACENTA INFORMATION BABY A Placenta Delivery Time : 07/10/2016 18:48 Placenta Method of Delivery: Spontaneous Placenta Status: Delivered SCORES BABY A Heart Rate 1 min: >100 bpm Resp Effort 1 min: Good Cry Reflex Irritability 1 min: Cough or Sneeze or Pulls Away Muscle Tone 1 min: Active Motion Color 1 min: Body [place], Extremities Blue Resuscitation Effort 1 min: Tactile Stimulation SCORE 1 MIN: 9 Heart Rate 5 min: >100 bpm Resp Effort 5 min: Good Cry Reflex Irritability 5 min: Cough or Sneeze or Pulls Away Muscle Tone 5 min: Active Motion Color 5 min: Body [place], Extremities Blue Resuscitation Effort 5 min: Tactile Stimulation SCORE 5 MIN: 9 INFORMATION BABY A Gestational Age at Delivery: 41.0 Gestational Status: Late Term- 41- 41.6 Weeks Outcome : Liveborn Condition : Stable Infant Sex: Female IDENTIFICATION BABY A Infant Verification Date/Time: 07/10/2016 18:49 ID Band Number: [id number] Mother's Name Verified: Yes Infant RN Verifying Infant: S Mauro RN Additional Verifying Personnel: D Johann US WEIGHT/LENGTH BABY A Birthweight (gm): 4275 Weight (lb): 9 Weight (oz): 7 Infant Length (in): 21.50 Length (cm): 54.61 CORD INFORMATION BABY A No. Cord Vessels: 3 Nuchal Cord : N/A Cord Blood Taken: Yes-For Storage (Mom's Blood type +) Infant Suction: None ASSESSMENT BABY A Complications: None Physical Findings at Delivery: Within Normal Limits Infant Respirations: Appears Normal Skin to Skin: Yes Skin to Skin Time (min): 60 Steam Blocker/ALS Called : No Infant Care By: Carley Edmundo RN SIGNATURES Assignment: Jemima De La O MD Signature: with User ID: [email or web address] : with User ID: [email or web address]
--- NOTE | 2016-07-10 20:53 | Admission Physical ---
Datetime Report Generated by CPN: 07/10/2016 20:53 CURRENT ADMISSION Chief Complaint: Scheduled Induction of Labor Indication for Induction: Post Dates Admit Plan: Admit to Unit; Initiate Labor Induction Protocol ALLERGIES Medication Allergies: No Medication Allergies: NA Latex: No Latex Allergies Food Allergies: NA Environmental Allergies: Bee stings OBSTETRICAL HISTORY EDC: 07/03/2016 00:00 : 2 Para: 1 Term: 1 : 0 SAB: 0 IAB: 0 Ectopic: 0 Livin Cesareans: 0 VBACs: 0 Multiple Births: 0 Gestational Diabetes: No Rh Sensitization: No Incompetent Cervix: No ECHO: No Infertility: No ART Treatment: No Uterine Anomaly: No IUGR: No Hx Previous C/S: No Macrosomia: No Hx Loss/Stillborn: No PIH: No Hx : No Placenta Previa/Abruption: No Depression/PP Depression: No PTL/PROM: No Post Hemorrhage: No Current Procedures: Ultrasound; NST Obstetrical History Comments: G1: 2005 10 pound 2 ounce male G2: Current SEE RECORDS Alcohol: No Marijuana : No Cocaine: No Other Illicit Drugs: No Cigarettes: Never Smoker. 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 Surgery: No Heart Disease: Yes Hosp/Surgery: No Autoimmune Disorder: No Anesthetic Complications: No Kidney Disease: No Abnormal Pap Smear: No Neuro/Epilepsy: No Psychiatric Disorders: No Other Medical Diseases: No Hepatitis/Liver Disease: No Significant Family History: No Varicosities/Phlebitis: No Trauma/Violence : No Thyroid Dysfunction: No Medical History Comments: Pulmonary valve stenosis _ tachycardia INFECTIOUS HISTORY Gonorrhea: No Genital Herpes: No Chlamydia: No Tuberculosis: No Syphilis: No Hepatitis: No HIV/AIDS Exposure: No Rash or Viral Illness: No HPV: No PHYSICAL EXAM General: Normal HEENT: Normal Neurologic: Normal Thyroid: Normal Heart: Normal Lungs: Normal Breast: Deferred Back: Normal Abdomen: Normal Genitourinary Exam: Normal Extremities: Normal DTRs: Normal Pelvic Type: Adequate Physical Exam Comments: pelvis proven to 10#2oz Vital Signs: Reviewed; Within Normal Limits VAGINAL EXAM Dilatation: 8 Effacement: 70 Station: 0 Contraction Comments: 2-4 MEMBRANES Membranes: Intact FETUS A EGA: 41.0 Monitoring: External US FHR- Baseline: 125 Variability: Moderate 6-25bpm Accelerations: 15X15 Decelerations: None FHR Category: Category I Estimated Weight (gm): 8 Presentation: Vertex Admit Comment: 30yo at 41+0ega presents for scheduled IOL. Cvx on 07/03 was 3/th/hi. GBS pos - PCN for GBS prophy. Anticpate . Pitocin ordered for IOL. Plan for PCN then when close to next dose of PCN will perform AROM. PLANS FOR LABOR AND DELIVERY Labor and Delivery: None Pain Management: Epidural Feeding Preference: Formula Benefit of Breast Feed Discussed: Yes Circumcision: N/A INFORMED CONSENT Informed Consent Obtained: Vaginal Delivery Signature: with User ID: [email or web address]
--- NOTE | 2016-07-11 04:46 | L&D Current Admission ---
Current Admit Datetime Report Generated by [facility]: 07/11/2016 04:45 Chief Complaint: Scheduled Induction of Labor (07/10/2016 07:30:Dorie Wyatt RN) Chief Complaint: Scheduled Induction of Labor (07/10/2016 07:00:Leilani Batista RN)
--- NOTE | 2016-07-11 04:46 | L&D Admission Assessment ---
LD ADM ASMT Datetime Report Generated by CPN: 07/11/2016 04:45 Assessment Type: Ongoing Assessment (07/10/2016 19:30:Radha Riuz RN) Assessment Type: Admission Assessment (07/10/2016 07:00:Leilani Batista RN) Weight (lb): 211 (07/10/2016 20:51:QS system process) Weight (lb): 211 (07/10/2016 13:01:QS system process) Weight (lb): 211 (07/10/2016 10:05:QS system process) Weight (lb): 211 (07/10/2016 07:04:QS system process) Weight (kg): 95.9 (07/10/2016 20:51:QS system process) Weight (kg): 95.9 (07/10/2016 13:01:QS system process) Weight (kg): 95.9 (07/10/2016 10:05:QS system process) Weight (kg): 95.9 (07/10/2016 07:04:QS system process) BMI: 29.4 (07/10/2016 20:51:QS system process) BMI: 29.4 (07/10/2016 13:01:QS system process) BMI: 29.4 (07/10/2016 10:05:QS system process) BMI: 29.4 (07/10/2016 07:04:QS system process) Pain Scale: 3 (07/10/2016 20:29:Radha Ruiz RN) Pain Scale: 3 (07/10/2016 20:11:Brittney Rubio RN) Pain Scale: 0 (07/10/2016 19:30:Radha Ruiz RN) Pain Scale: 0 (07/10/2016 19:15:Dorie Wyatt RN) Pain Scale: 0 (07/10/2016 19:00:Dorie Wyatt RN) Pain Scale: 0 (07/10/2016 18:48:Dorie Wyatt RN) Pain Scale: 0 (07/10/2016 16:14:Dorie Wyatt RN) Pain Scale: 0 (07/10/2016 07:30:Dorie Wyatt RN) Pain Scale: 0 (07/10/2016 07:00:Leilani Batista RN) Pain Presence: Constant (07/10/2016 20:29:Radha Ruiz RN) Pain Presence: Constant (07/10/2016 20:11:Brittney Rubio RN) Pain Presence: None/Denies (07/10/2016 19:30:Radha Ruiz RN) Pain Presence: None/Denies (07/10/2016 19:15:Dorie Wyatt RN) Pain Presence: None/Denies (07/10/2016 19:00:Dorie Wyatt RN) Pain Presence: None/Denies (07/10/2016 18:48:Dorie Wyatt RN) Pain Presence: None/Denies (07/10/2016 07:30:Dorie Wyatt RN) Pain Presence: None/Denies (07/10/2016 07:00:Leilani Batista RN) Pain Type: Cramping (07/10/2016 20:29:Radha Ruiz RN) Pain Type: Cramping (07/10/2016 20:11:Brittney Rubio RN) Pain Type: N/A (07/10/2016 19:15:Dorie Wyatt RN) Pain Type: N/A (07/10/2016 19:00:Dorie Wyatt RN) Pain Type: N/A (07/10/2016 18:48:Dorie Wyatt RN) Pain Type: N/A (07/10/2016 07:30:Dorie Wyatt RN) Pain Type: N/A (07/10/2016 07:00:Leilani Batista RN) Pain Location: Abdomen (07/10/2016 20:29:Radha Ruiz RN) Pain Location: Abdomen (07/10/2016 20:11:Brittney Rubio RN) Frequency (min): 2-3 (07/10/2016 18:44:Dorie Edmundo, RN) Frequency (min): 2-3 (07/10/2016 18:30:Dorie Edmundo, RN) Frequency (min): 2-3 (07/10/2016 18:00:Dorie Edmundo, RN) Frequency (min): 2-3 (07/10/2016 17:30:Dorie Edmundo, RN) Frequency (min): 3-4 (07/10/2016 17:00:Dorie Edmundo, RN) Frequency (min): 2-4 (07/10/2016 16:30:Dorie Edmundo, RN) Frequency (min): 2-3 (07/10/2016 16:00:Dorie Edmundo, RN) Frequency (min): 2-3 (07/10/2016 15:30:Dorie Edmundo, RN) Frequency (min): 2-3 (07/10/2016 15:00:Dorie Edmundo, RN) Frequency (min): 2-4 (07/10/2016 14:30:Dorie Edmundo, RN) Frequency (min): 2-4 (07/10/2016 14:00:Dorie Edmundo, RN) Frequency (min): 2-6 (07/10/2016 13:30:Dorie Edmundo, RN) Frequency (min): 2-5 (07/10/2016 13:00:Dorie Edmundo, RN) Frequency (min): 2-5 (07/10/2016 12:30:Dorie Edmundo, RN) Frequency (min): 2-4 (07/10/2016 12:00:Dorie Edmundo, RN) Frequency (min): 2-4 (07/10/2016 11:30:Dorie Edmundo, RN) Frequency (min): 2-5 (07/10/2016 11:00:Dorie Edmundo, RN) Frequency (min): 2-4 (07/10/2016 10:38:Dorie Edmundo, RN) Frequency (min): 2-3 (07/10/2016 10:30:Dorie Edmundo, RN) Frequency (min): 2-4 (07/10/2016 10:00:Dorie Edmundo, RN) Frequency (min): irreg (07/10/2016 09:30:Dorie Edmundo, RN) Frequency (min): 2-5 (07/10/2016 09:00:Dorie Edmundo, RN) Frequency (min): irreg (07/10/2016 08:30:Dorie Edmundo, RN) Frequency (min): irreg (07/10/2016 08:00:Dorie Edmundo, RN) Frequency (min): irreg (07/10/2016 07:30:Dorie Edmundo, RN) Frequency (min): 3-4 (07/10/2016 07:15:Leilani Batista, RN) Duration (sec): 60-70 (07/10/2016 18:44:Dorie Edmundo, RN) Duration (sec): 60-80 (07/10/2016 18:30:Dorie Edmundo, RN) Duration (sec): 60-80 (07/10/2016 18:00:Dorie Edmundo, RN) Duration (sec): 60-90 (07/10/2016 17:30:Dorie Edmundo, RN) Duration (sec): 60-80 (07/10/2016 17:00:Dorie Edmundo, RN) Duration (sec): 60-90 (07/10/2016 16:30:Dorie Edmudno, RN) Duration (sec): 60-90 (07/10/2016 16:00:Dorie Edmundo, RN) Duration (sec): 60-90 (07/10/2016 15:30:Dorie Edmundo, RN) Duration (sec): 60-90 (07/10/2016 15:00:Dorie Edmundo, RN) Duration (sec): 60-80 (07/10/2016 14:30:Dorie Edmundo, RN) Duration (sec): 60-80 (07/10/2016 14:00:Dorie Edmundo, RN) Duration (sec): 60-80 (07/10/2016 13:30:Dorie Edmundo, RN) Duration (sec): 60-80 (07/10/2016 13:00:Dorie Edmundo, RN) Duration (sec): 60-80 (07/10/2016 12:30:Dorie Edmundo, RN) Duration (sec): 60-90 (07/10/2016 12:00:Dorie Edmundo, RN) Duration (sec): 60-80 (07/10/2016 11:30:Dorie Edmundo, RN) Duration (sec): 60-90 (07/10/2016 11:00:Dorie Edmundo, RN) Duration (sec): 60-90 (07/10/2016 10:38:Dorie Edmundo, RN) Duration (sec): 60-70 (07/10/2016 10:30:Dorie Edmundo, RN) Duration (sec): 60-90 (07/10/2016 10:00:Dorie Edmundo, RN) Duration (sec): 60-90 (07/10/2016 09:00:Dorie Edmundo, RN) Duration (sec): 40-80 (07/10/2016 07:15:Leilani Batista RN) Quality: Moderate to Strong (07/10/2016 18:44:Dorie Edmundo, RN) Quality: Moderate to Strong (07/10/2016 18:30:Dorie Edmundo, RN) Quality: Moderate to Strong (07/10/2016 18:00:Dorie Edmundo, RN) Quality: Moderate to Strong (07/10/2016 17:30:Dorie Edmundo, RN) Quality: Moderate (07/10/2016 17:00:Dorie Edmundo, RN) Quality: Moderate (07/10/2016 16:30:Dorie Edmundo, RN) Quality: Moderate (07/10/2016 16:00:Dorie Edmundo, RN) Quality: Moderate (07/10/2016 15:30:Dorie Edmundo, RN) Quality: Moderate (07/10/2016 15:00:Dorie Edmundo, RN) Quality: Moderate (07/10/2016 14:30:Dorie Edmundo, RN) Quality: Moderate (07/10/2016 14:00:Dorie Edmundo, RN) Quality: Mild/Moderate (07/10/2016 13:30:Dorie Edmundo, RN) Quality: Mild/Moderate (07/10/2016 13:00:Dorie Edmundo, RN) Quality: Mild/Moderate (07/10/2016 12:30:Dorie Edmundo, RN) Quality: Mild/Moderate (07/10/2016 12:00:Dorie Edmundo, RN) Quality: Mild/Moderate (07/10/2016 11:30:Dorie Edmundo, RN) Quality: Mild/Moderate (07/10/2016 11:00:Dorie Edmundo, RN) Quality: Mild (07/10/2016 10:38:Dorie Edmundo, RN) Quality: Mild (07/10/2016 10:30:Dorie Edmundo, RN) Quality: Mild (07/10/2016 10:00:Dorie Edmundo, RN) Quality: Mild (07/10/2016 09:30:Dorie Edmundo, RN) Quality: Mild (07/10/2016 09:00:Dorie Edmundo, RN) Quality: Mild (07/10/2016 08:30:Dorie Edmundo, RN) Quality: Mild (07/10/2016 08:00:Dorie Edmundo, RN) Quality: Mild (07/10/2016 07:30:Dorie Edmundo, RN) Quality: Mild (07/10/2016 07:15:Leilani Batista, RN) Pattern: Normal: <= 5 Contractions in 10 Minutes (07/10/2016 07:15:Leilani Batista, RN) Resting Tone [place]: Relaxed (07/10/2016 18:44:Dorie Edmundo, RN) Resting Tone [place]: Relaxed (07/10/2016 18:30:Dorie Edmundo, RN) Resting Tone [place]: Relaxed (07/10/2016 18:00:Dorie Edmundo, RN) Resting Tone [place]: Relaxed (07/10/2016 17:30:Dorie Edmundo, RN) Resting Tone [place]: Relaxed (07/10/2016 17:00:Dorie Edmundo, RN) Resting Tone [place]: Relaxed (07/10/2016 16:30:Dorie Edmundo, RN) Resting Tone [place]: Relaxed (07/10/2016 16:00:Dorie Edmundo, RN) Resting Tone [place]: Relaxed (07/10/2016 15:30:Dorie Edmundo, RN) Resting Tone [place]: Relaxed (07/10/2016 15:00:Dorie Edmundo, RN) Resting Tone [place]: Relaxed (07/10/2016 14:30:Dorie Edmundo, RN) Resting Tone [place]: Relaxed (07/10/2016 14:00:Dorie Edmundo, RN) Resting Tone [place]: Relaxed (07/10/2016 13:30:Dorie Edmundo, RN) Resting Tone [place]: Relaxed (07/10/2016 13:00:Dorie Edmundo, RN) Resting Tone [place]: Relaxed (07/10/2016 12:30:Dorie Edmundo, RN) Resting Tone [place]: Relaxed (07/10/2016 12:00:Dorie Edmundo, RN) Resting Tone [place]: Relaxed (07/10/2016 11:30:Dorie Edmundo, RN) Resting Tone [place]: Relaxed (07/10/2016 11:00:Dorie Edmundo, RN) Resting Tone [place]: Relaxed (07/10/2016 10:38:Dorie Edmundo, RN) Resting Tone [place]: Relaxed (07/10/2016 10:30:Dorie Edmundo, RN) Resting Tone [place]: Relaxed (07/10/2016 10:00:Dorie Edmundo, RN) Resting Tone [place]: Relaxed (07/10/2016 09:30:Dorie Edmundo, RN) Resting Tone [place]: Relaxed (07/10/2016 09:00:Dorie Edmundo, RN) Resting Tone [place]: Relaxed (07/10/2016 08:30:Dorie Edmundo, RN) Resting Tone [place]: Relaxed (07/10/2016 08:00:Dorie Edmundo, RN) Resting Tone [place]: Relaxed (07/10/2016 07:30:Dorie Edmundo, RN) Resting Tone [place]: Relaxed (07/10/2016 07:15:Leilani Batista RN) Dilatation (cm): 10.0 (07/10/2016 18:20:Dorie Edmundo, RN) Dilatation (cm): 9.0 (07/10/2016 17:42:Dorie Edmundo, RN) Dilatation (cm): 7.5 (07/10/2016 15:34:Dorie Edmundo, RN) Dilatation (cm): 6.0 (07/10/2016 14:19:Dorie Edmundo, RN) Dilatation (cm): 5.0 (07/10/2016 11:55:Dorie Wyatt RN) Dilatation (cm): 3.0 (07/10/2016 07:14:Leilani Batista RN) Effacement (%): 100 (07/10/2016 18:20:Dorie Wyatt, RN) Effacement (%): 100 (07/10/2016 17:42:Dorie Wyatt RN) Effacement (%): 70 (07/10/2016 15:34:Dorie Wyatt, RN) Effacement (%): 70 (07/10/2016 14:19:Dorie Wyatt RN) Effacement (%): 50 (07/10/2016 11:55:Dorie Wyatt RN) Effacement (%): 50 (07/10/2016 07:14:Leilani Batista RN) Station: 1 (07/10/2016 18:20:Dorie Wyatt RN) Station: 0 (07/10/2016 17:42:Dorie Wyatt RN) Station: 0 (07/10/2016 15:34:Dorie Wyatt RN) Station: -2 (07/10/2016 14:19:Dorie Wyatt RN) Station: -1 (07/10/2016 11:55:Dorie Wyatt RN) Station: -2 (07/10/2016 07:14:Leilani Batista RN) Membranes Status: Ruptured (07/10/2016 11:55:Dorie Wyatt RN) Membranes Rupture D/ (07/10/2016 11:55:Dorie Wyatt RN) ROM Method: Artificial (07/10/2016 11:55:Dorie Wyatt RN) Amniotic Fluid Color: Clear (07/10/2016 11:55:Dorie Wyatt RN) Amniotic Fluid Amount: Moderate (07/10/2016 11:55:Dorie Wyatt RN) Amniotic Fluid Odor: Normal (07/10/2016 11:55:Dorie Wyatt RN) Level of Consciousness: Fully Conscious (07/10/2016 19:30:Radha Ruiz RN) Level of Consciousness: Fully Conscious (07/10/2016 07:30:Dorie Wyatt RN) Level of Consciousness: Fully Conscious (07/10/2016 07:00:Leilani Batista RN) DTR's/Clonus: DTRs 2+; No Clonus (07/10/2016 19:30:Radha Ruiz RN) DTR's/Clonus: DTRs 2+; No Clonus (07/10/2016 07:00:Leilani Batista RN) Headache: Denies (07/10/2016 19:30:Radha Ruiz RN) Headache: Denies (07/10/2016 07:30:Dorie Wyatt RN) Dizziness: No (07/10/2016 19:30:Radha Ruiz RN) Dizziness: No (07/10/2016 07:30:Dorie Wyatt RN) Dizziness: No (07/10/2016 07:00:Leilani Batista RN) Blurred Vision: No (07/10/2016 19:30:Radha Ruiz RN) Blurred Vision: No (07/10/2016 07:30:Dorie Wyatt RN) Blurred Vision: No (07/10/2016 07:00:Leilani Batista RN) Extremity Numbness/Tingling : None (07/10/2016 19:30:Radha Ruiz RN) Extremity Numbness/Tingling : None (07/10/2016 07:30:Dorie Wyatt RN) Extremity Numbness/Tingling : None (07/10/2016 07:00:Leilani Batista RN) Extremity Movement: Full Range of Motion (07/10/2016 19:30:Radha Ruiz RN) Extremity Movement: Full Range of Motion (07/10/2016 07:30:Dorie Wyatt RN) Extremity Movement: Full Range of Motion (07/10/2016 07:00:Leilani Batista RN) Heart Rhythm: Regular (07/10/2016 19:30:Radha Ruiz RN) Heart Rhythm: Regular (07/10/2016 07:30:Dorie Wyatt RN) Heart Rhythm: Regular (07/10/2016 07:00:Leilani Batista RN) Nailbeds: [place] (07/10/2016 19:30:Radha Ruiz RN) Nailbeds: [place] (07/10/2016 07:30:Dorie Wyatt RN) Nailbeds: [place] (07/10/2016 07:00:Leilani Batista RN) Capillary Refill: Less than 3 Seconds (07/10/2016 19:30:Radha Ruiz RN) Capillary Refill: Less than 3 Seconds (07/10/2016 07:30:Dorie Wyatt RN) Capillary Refill: Less than 3 Seconds (07/10/2016 07:00:Leilani Batista RN) Lower Extremities Edema: None (07/10/2016 19:30:Radha Ruiz RN) Lower Extremities Edema: None (07/10/2016 07:30:Dorie Wyatt RN) Lower Extremities Edema: None (07/10/2016 07:00:Leilani Batista RN) Lower Extremities Edema Degree: None (07/10/2016 19:30:Radha Ruiz RN) Lower Extremities Edema Degree: None (07/10/2016 07:30:Dorie Wyatt RN) Lower Extremities Edema Degree: None (07/10/2016 07:00:Leilani Batista RN) Upper Extremities Edema: None (07/10/2016 19:30:Radha Ruiz RN) Upper Extremities Edema: None (07/10/2016 07:30:Dorie Wyatt RN) Upper Extremities Edema: None (07/10/2016 07:00:Leilani Batista RN) Upper Extremities Edema Degree: None (07/10/2016 19:30:Radha Ruiz RN) Upper Extremities Edema Degree: None (07/10/2016 07:30:Dorie Wyatt RN) Upper Extremities Edema Degree: None (07/10/2016 07:00:Leilani Batista RN) Facial Edema: None (07/10/2016 19:30:Radha Ruiz RN) Facial Edema: None (07/10/2016 07:30:Dorie Wyatt RN) Facial Edema: None (07/10/2016 07:00:Leilani Batista RN) Alva's Sign Left Leg: Negative (07/10/2016 19:30:Radha Ruiz RN) Alva's Sign Left Leg: Negative (07/10/2016 07:00:Leilani Batista RN) Alva's Sign Right Leg: Negative (07/10/2016 19:30:Radha Ruiz RN) Alva's Sign Right Leg: Negative (07/10/2016 07:00:Leilani Batista RN) DVT Risk Age: Age less than 41 years (07/10/2016 19:30:Radha Ruiz RN) DVT Risk Age: Age less than 41 years (07/10/2016 07:30:Dorie Wyatt RN) DVT Risk Age: Age less than 41 years (07/10/2016 07:00:Leilani Batista RN) DVT Risk BMI: BMI<31 (07/10/2016 19:30:Radha Ruiz RN) DVT Risk BMI: BMI<31 (07/10/2016 07:30:Dorie Wyatt RN) DVT Risk BMI: BMI 31 to 40 (07/10/2016 07:00:Leilani Batista RN) DVT Risk Surgery: None Applicable (07/10/2016 19:30:Radha Ruiz RN) DVT Risk Surgery: None Applicable (07/10/2016 07:30:Dorie Wyatt RN) DVT Risk Surgery: Laparoscopic Surgery (>60 minutes) (07/10/2016 07:00:Leilani Batista RN) DVT Risk Other: Women Only- or (<1 month) (07/10/2016 19:30:Radha Ruiz RN) DVT Risk Other: None Applicable (07/10/2016 07:30:Dorie Wyatt RN) DVT Risk Other: Women Only- or (<1 month) (07/10/2016 07:00:Leilani Batista RN) DVT Risk Total: 1 (07/10/2016 19:30:QS system process) DVT Risk Total: 0 (07/10/2016 07:30:QS system process) DVT Risk Total: 4 (07/10/2016 07:00:QS system process) DVT Risk Text: Low Risk (<10%) No specific measures, early ambulation (07/10/2016 19:30:QS system process) DVT Risk Text: Low Risk (<10%) No specific measures, early ambulation (07/10/2016 07:30:QS system process) DVT Risk Text: High Risk (20-40%)- Consider stockings, compresssion device, pharmacological therapy per hospital policy (07/10/2016 07:00:QS system process) Respiratory Effort: Unlabored; Regular Rhythm; Equal Expansion (07/10/2016 19:30:Radha Ruiz RN) Respiratory Effort: Unlabored; Regular Rhythm; Equal Expansion (07/10/2016 07:30:Dorie Wyatt RN) Respiratory Effort: Unlabored; Regular Rhythm; Equal Expansion (07/10/2016 07:00:Leilani Batista RN) Breath Sounds, Left: Clear and Equal (07/10/2016 19:30:Radha Ruiz RN) Breath Sounds, Left: Clear and Equal (07/10/2016 07:30:Dorie Wyatt RN) Breath Sounds, Left: Clear and Equal (07/10/2016 07:00:Leilani Batista RN) Breath Sounds, Right: Clear and Equal (07/10/2016 19:30:Radha Ruiz RN) Breath Sounds, Right: Clear and Equal (07/10/2016 07:30:Dorie Wyatt RN) Breath Sounds, Right: Clear and Equal (07/10/2016 07:00:Leilani Batista RN) Cough Productivity: None (07/10/2016 19:30:Radha Ruiz RN) Cough Productivity: None (07/10/2016 07:30:Dorie Wyatt RN) Cough Productivity: None (07/10/2016 07:00:Leilani Batista RN) Nausea/Vomiting: Denies (07/10/2016 19:30:Radha Ruiz RN) Nausea/Vomiting: Denies (07/10/2016 07:30:Dorie Wyatt RN) Nausea/Vomiting: Denies (07/10/2016 07:00:Leilani Batista RN) Bowel Sounds: Normoactive; All Quadrants (07/10/2016 19:30:Radha Ruiz RN) Bowel Sounds: Normoactive (07/10/2016 07:30:Dorie Wyatt RN) Bowel Sounds: Normoactive (07/10/2016 07:00:Leilani Batista RN) RUQ Epigastric Pain: Denies (07/10/2016 19:30:Radha Ruiz RN) RUQ Epigastric Pain: Denies (07/10/2016 07:30:Doire Wyatt RN) RUQ Epigastric Pain: Denies (07/10/2016 07:00:Leilani Batista RN) Bowel Patterns: Soft, Formed Stool (07/10/2016 19:30:Radha Ruiz RN) Bowel Patterns: Soft, Formed Stool (07/10/2016 07:30:Dorie Wyatt RN) Bowel Patterns: Soft, Formed Stool (07/10/2016 07:00:Leilani Batista RN) Hemorrhoids: None (07/10/2016 19:30:Radha Ruiz RN) Hemorrhoids: None (07/10/2016 07:30:Dorie Wyatt RN) Hemorrhoids: None (07/10/2016 07:00:Leilani Batista RN) Diet Type: Regular diet (07/10/2016 19:30:Radha Ruiz RN) Diet Type: Regular diet (07/10/2016 07:30:Dorie Wyatt RN) Diet Type: Regular diet (07/10/2016 07:00:Leilani Batista RN) Last Meal: 07/10/2016 05:30 (07/10/2016 07:30:Dorie Wyatt RN) Last Meal: 07/10/2016 06:00 (07/10/2016 07:00:Leilani Batista RN) Bladder: Nondistended (07/10/2016 19:30:Radha Ruiz RN) Bladder: Nondistended (07/10/2016 07:30:Dorie Wyatt RN) Bladder: Nondistended (07/10/2016 07:00:Leilani Batista RN) Frequency of Urination: No (07/10/2016 19:30:Radha Ruiz RN) Frequency of Urination: No (07/10/2016 07:30:Dorie Wyatt RN) Frequency of Urination: No (07/10/2016 07:00:Leilani Batista RN) Urination Burning: No (07/10/2016 19:30:Radha Ruiz RN) Urination Burning: No (07/10/2016 07:30:Dorie Wyatt RN) Urination Burning: No (07/10/2016 07:00:Leilani Batista RN) CVA Tenderness: No (07/10/2016 19:30:Radha Ruiz RN) CVA Tenderness: No (07/10/2016 07:30:Dorie Wyatt RN) CVA Tenderness: No (07/10/2016 07:00:Leilani Batista RN) Vaginal Bleeding: None (07/10/2016 07:30:Dorie Wyatt RN) Vaginal Discharge Amount: small rubra (07/10/2016 19:30:Radha Ruiz RN) Vaginal Discharge Amount: None (07/10/2016 07:30:Dorie Wyatt RN) Vaginal Discharge Color: N/A (07/10/2016 07:30:oDrie Wyatt RN) Skin Color: Normal for Race (07/10/2016 19:30:Radha Ruiz RN) Skin Color: Normal for Race (07/10/2016 07:30:Dorie Wyatt RN) Skin Color: Normal for Race (07/10/2016 07:00:Leilani Batista RN) Skin Temperature: Warm (07/10/2016 19:30:Radha Ruiz RN) Skin Temperature: Warm (07/10/2016 07:30:Dorie Wyatt RN) Skin Temperature: Warm (07/10/2016 07:00:Leilani Batista RN) Skin Moisture: Dry (07/10/2016 19:30:Radha Ruiz RN) Skin Moisture: Dry (07/10/2016 07:30:Dorie Wyatt RN) Skin Moisture: Dry (07/10/2016 07:00:Leilani Batista RN) Surgical Scars: Knee Left (07/10/2016 07:00:Leilani Batista RN) Sanjay Scale Sensory Perception: No Impairment- Responds to verbal commands. Has no sensory deficit which would limit ability to feel or voice pain or discomfort (07/10/2016 19:30:Radha Ruiz RN) Sanjay Scale Sensory Perception: No Impairment- Responds to verbal commands. Has no sensory deficit which would limit ability to feel or voice pain or discomfort (07/10/2016 07:30:Dorie Wyatt RN) Sanjay Scale Sensory Perception: No Impairment- Responds to verbal commands. Has no sensory deficit which would limit ability to feel or voice pain or discomfort (07/10/2016 07:00:Leilani Batista RN) Sanjay Scale Moisture: Rarely Moist- Skin is usually dry. Linen only requires changing at routine intervals (07/10/2016 19:30:Radha Ruiz RN) Sanjay Scale Moisture: Rarely Moist- Skin is usually dry. Linen only requires changing at routine intervals (07/10/2016 07:30:Dorie Wyatt RN) Sanjay Scale Moisture: Rarely Moist- Skin is usually dry. Linen only requires changing at routine intervals (07/10/2016 07:00:Leilani Batista RN) Sanjay Scale Activity: Bedfast- Confined to bed. (Annotations: epidural removed, patient dermatome still t9 ) (07/10/2016 19:30:Radha Ruiz RN) Sanjay Scale Activity: Walks Frequently- Walks outside the room at least twice a day and inside room at least every 2 hours during the day. (07/10/2016 07:30:Dorie Wyatt RN) Sanjay Scale Activity: Walks Frequently- Walks outside the room at least twice a day and inside room at least every 2 hours during the day. (07/10/2016 07:00:Leilani Batista RN) Sanjay Scale Mobility: No Limitations- Makes major and frequent changes in position without assistance (07/10/2016 19:30:Radha Ruiz RN) Sanjay Scale Mobility: No Limitations- Makes major and frequent changes in position without assistance (07/10/2016 07:30:Dorie Wyatt RN) Sanjay Scale Mobility: No Limitations- Makes major and frequent changes in position without assistance (07/10/2016 07:00:Leilani Batista RN) Sanjay Scale Nutrition: Excellent- Eats most of every meal. Never refuses a meal. Usually eats a total of 4 or more servings of meat and dairy products. Occasionally eats between meals. Does not require supplementation (07/10/2016 19:30:Radha Ruiz RN) Sanjay Scale Nutrition: Excellent- Eats most of every meal. Never refuses a meal. Usually eats a total of 4 or more servings of meat and dairy products. Occasionally eats between meals. Does not require supplementation (07/10/2016 07:30:Dorie Wyatt RN) Sanjay Scale Nutrition: Excellent- Eats most of every meal. Never refuses a meal. Usually eats a total of 4 or more servings of meat and dairy products. Occasionally eats between meals. Does not require supplementation (07/10/2016 07:00:Leilani Batista RN) Sanjay Scale Friction and Shear: No Apparent Problem- Moves in bed and in chair independently and has sufficient muscle strength to lift up completely during move. Maintains good position in bed or chair at all times (07/10/2016 19:30:Radha Ruiz RN) Sanjay Scale Friction and Shear: No Apparent Problem- Moves in bed and in chair independently and has sufficient muscle strength to lift up completely during move. Maintains good position in bed or chair at all times (07/10/2016 07:30:Dorie Wyatt RN) Sanjay Scale Friction and Shear: No Apparent Problem- Moves in bed and in chair independently and has sufficient muscle strength to lift up completely during move. Maintains good position in bed or chair at all times (07/10/2016 07:00:Leilani Batista RN) Sanjay Scale Total: 20 (07/10/2016 19:30:QS system process) Sanjay Scale Total: 23 (07/10/2016 07:30:QS system process) Sanjay Scale Total: 23 (07/10/2016 07:00:QS system process) Sanjay Scale Risk: No Risk of Pressure Ulcer Noted at this Time (07/10/2016 19:30:QS system process) Sanjay Scale Risk: No Risk of Pressure Ulcer Noted at this Time (07/10/2016 07:30:QS system process) Sanjay Scale Risk: No Risk of Pressure Ulcer Noted at this Time (07/10/2016 07:00:QS system process) Family Support: Significant Other supportive, at bedside frequently; Family supportive (07/10/2016 19:30:Radha Ruiz RN) Family Support: Significant Other supportive, at bedside frequently; Family supportive (07/10/2016 07:30:Dorie Wyatt RN) Family Support: Significant Other supportive, at bedside frequently (07/10/2016 07:00:Leilani Batista RN) Emotional State: Calm/Relaxed (07/10/2016 19:30:Radha Ruiz RN) Emotional State: Calm/Relaxed (07/10/2016 07:30:Dorie Wyatt RN) Emotional State: Calm/Relaxed (07/10/2016 07:00:Leilani Batista RN) Call Briceño Within Reach: Yes (07/10/2016 19:30:Radha Ruiz RN) Call Briceño Within Reach: Yes (07/10/2016 07:30:Dorie Wyatt RN) Call Briceño Within Reach: Yes (07/10/2016 07:00:Leilani Batista RN) Side Rails Up: Yes (07/10/2016 19:30:Radha Ruiz RN) Side Rails Up: Yes (07/10/2016 07:30:Dorie Wyatt RN) Side Rails Up: Yes (07/10/2016 07:00:Leilani Batista RN) Bed Wheels Locked: Yes (07/10/2016 19:30:Radha Ruiz RN) Bed Wheels Locked: Yes (07/10/2016 07:30:Dorie Wyatt RN) Bed Wheels Locked: Yes (07/10/2016 07:00:Leilani Batista RN) Arm Bands Present: Yes (07/10/2016 19:30:Radha Ruiz RN) Arm Bands Present: Yes (07/10/2016 07:30:Dorie Wyatt RN) Arm Bands Present: Yes (07/10/2016 07:00:Leilani Batista RN) Isolation: Drew (07/10/2016 19:30:Radha Ruiz RN) Isolation: Drew (07/10/2016 07:30:Dorie Wyatt RN) Isolation: Drew (07/10/2016 07:00:Leilani Batista RN) Fall Risk History of Falling: (0) No (07/10/2016 19:30:Radha Ruiz RN) Fall Risk History of Falling: (0) No (07/10/2016 07:30:Dorie Wyatt RN) Fall Risk History of Falling: (0) No (07/10/2016 07:00:Leilani Batista RN) Fall Risk Secondary Diagnosis: (15) Yes (Annotations: history of pulmonary stenosis, just delivered, had epidural ) (07/10/2016 19:30:Radha Ruiz RN) Fall Risk Secondary Diagnosis: (0) No (07/10/2016 07:30:Dorie Wyatt RN) Fall Risk Secondary Diagnosis: (0) No (07/10/2016 07:00:Leilani Batista RN) Fall Risk Ambulatory Aid: (0) None/Bedrest/Wheelchair/Nurse Assist (07/10/2016 19:30:Radha Ruiz RN) Fall Risk Ambulatory Aid: (0) None/Bedrest/Wheelchair/Nurse Assist (07/10/2016 07:30:Dorie Wyatt RN) Fall Risk Ambulatory Aid: (0) None/Bedrest/Wheelchair/Nurse Assist (07/10/2016 07:00:Leilani Batista RN) Fall Risk IV Therapy: (20) Yes (07/10/2016 19:30:Radha Ruiz RN) Fall Risk IV Therapy: (20) Yes (07/10/2016 07:30:Dorie Wyatt RN) Fall Risk IV Therapy: (20) Yes (07/10/2016 07:00:Leilani Batista RN) Fall Risk Gait: (0) Normal/Bedrest/Immobile (07/10/2016 19:30:Radha Ruiz RN) Fall Risk Gait: (0) Normal/Bedrest/Immobile (07/10/2016 07:30:Dorie Wyatt RN) Fall Risk Gait: (0) Normal/Bedrest/Immobile (07/10/2016 07:00:Leilani Batista RN) Fall Risk Mental Status: (0) Oriented to Own Ability (07/10/2016 19:30:Radha Ruiz RN) Fall Risk Mental Status: (0) Oriented to Own Ability (07/10/2016 07:30:Dorie Wyatt RN) Fall Risk Mental Status: (0) Oriented to Own Ability (07/10/2016 07:00:Leilani Batista RN) Fall Risk Score: 35 (07/10/2016 19:30:QS system process) Fall Risk Score: 20 (07/10/2016 07:30:QS system process) Fall Risk Score: 20 (07/10/2016 07:00:QS system process) Fall Risk Score Definition: Low Risk: Please see standard fall prevention interventions (07/10/2016 19:30:QS system process) Fall Risk Score Definition: No Risk: No action required (07/10/2016 07:30:QS system process) Fall Risk Score Definition: No Risk: No action required (07/10/2016 07:00:QS system process) Recent Exp Communicable Disease: No (07/10/2016 19:30:Radha Ruiz RN) Recent Exp Communicable Disease: No (07/10/2016 07:30:Dorie Wyatt RN) Recent Exp Communicable Disease: No (07/10/2016 07:00:Leilani Batista RN) Cough or Fever: No (07/10/2016 19:30:Radha Ruiz RN) Cough or Fever: No (07/10/2016 07:30:Dorie Wyatt RN) Cough or Fever: No (07/10/2016 07:00:Leilani Batista RN) Foreign Travel Past 10 Days: No (07/10/2016 19:30:Radha Ruiz RN) Foreign Travel Past 10 Days: No (07/10/2016 07:30:Dorie Wyatt RN) Foreign Travel Past 10 Days: No (07/10/2016 07:00:Leilani Batista RN) Open Wounds or Sores: Yes (Annotations: several scratches noted on the back in various stages of healing. patient states they were from acne that had been scratched. slightly reddened at edges. patient instructed to clean with soap and water and report to provider if infection present) (07/10/2016 19:30:Radha Ruiz RN) Open Wounds or Sores: No (07/10/2016 07:30:Dorie Wyatt RN) Open Wounds or Sores: No (07/10/2016 07:00:Leilani Batista RN) Prior Antibiotic Resistance Tx: No (07/10/2016 19:30:Radha Ruiz RN) Prior Antibiotic Resistance Tx: No (07/10/2016 07:30:Dorie Wyatt RN) Prior Antibiotic Resistance Tx: No (07/10/2016 07:00:Leilani Batista RN) Cultures Obtained: Not Applicable (07/10/2016 19:30:Radha Ruiz RN) Cultures Obtained: Not Applicable (07/10/2016 07:30:Dorie Wyatt RN) Cultures Obtained: Not Applicable (07/10/2016 07:00:Leilani Batista RN) Isolation Initiated: No (07/10/2016 19:30:Radha Ruiz RN) Isolation Initiated: No (07/10/2016 07:30:Dorie Wyatt RN) Isolation Initiated: No (07/10/2016 07:00:Leilani Batista RN) Pt/Family Education: Handwashing Hygiene (07/10/2016 19:30:Radha Ruiz RN) Pt/Family Education: Handwashing Hygiene (07/10/2016 07:30:Dorie Wyatt RN) Pt/Family Education: Handwashing Hygiene (07/10/2016 07:00:Leilani Batista RN) FHR Baseline Rate (bpm) Baby A: 145 (07/10/2016 18:44:Dorie Wyatt RN) FHR Baseline Rate (bpm) Baby A: 130 (07/10/2016 18:30:Dorie Wyatt RN) FHR Baseline Rate (bpm) Baby A: 130 (07/10/2016 18:00:Dorie Wyatt RN) FHR Baseline Rate (bpm) Baby A: 135 (07/10/2016 17:30:Dorie Wyatt RN) FHR Baseline Rate (bpm) Baby A: 125 (07/10/2016 17:00:Dorie Wyatt RN) FHR Baseline Rate (bpm) Baby A: 125 (07/10/2016 16:30:Dorie Wyatt, RN) FHR Baseline Rate (bpm) Baby A: 130 (07/10/2016 16:00:Dorie Wyatt, RN) FHR Baseline Rate (bpm) Baby A: 125 (07/10/2016 15:30:Doriemichell Wyatt, RN) FHR Baseline Rate (bpm) Baby A: 125 (07/10/2016 15:00:Dorie Wyatt RN) FHR Baseline Rate (bpm) Baby A: 125 (07/10/2016 14:30:Dorie Wyatt RN) FHR Baseline Rate (bpm) Baby A: 125 (07/10/2016 14:00:Dorie Wyatt RN) FHR Baseline Rate (bpm) Baby A: 135 (07/10/2016 13:30:Dorie Wyatt RN) FHR Baseline Rate (bpm) Baby A: 125 (07/10/2016 13:00:Dorie Wyatt RN) FHR Baseline Rate (bpm) Baby A: 125 (07/10/2016 12:30:Dorie Wyatt RN) FHR Baseline Rate (bpm) Baby A: 135 (07/10/2016 12:00:Dorie Wyatt RN) FHR Baseline Rate (bpm) Baby A: 125 (07/10/2016 11:30:Dorie Wyatt RN) FHR Baseline Rate (bpm) Baby A: 135 (07/10/2016 11:00:Dorie Wyatt, RN) FHR Baseline Rate (bpm) Baby A: 135 (07/10/2016 10:38:Dorie Wyatt RN) FHR Baseline Rate (bpm) Baby A: 130 (07/10/2016 10:30:Dorie Wyatt, RN) FHR Baseline Rate (bpm) Baby A: 120 (07/10/2016 10:00:Dorie Wyatt RN) FHR Baseline Rate (bpm) Baby A: 135 (07/10/2016 09:30:Doriemichell Wyatt, RN) FHR Baseline Rate (bpm) Baby A: 135 (07/10/2016 09:00:Dorie Wyatt, RN) FHR Baseline Rate (bpm) Baby A: 130 (07/10/2016 08:30:Dorie Edmundo, RN) FHR Baseline Rate (bpm) Baby A: 135 (07/10/2016 08:00:Dorie Edmundo, RN) FHR Baseline Rate (bpm) Baby A: 125 (07/10/2016 07:30:Dorie Edmundo, RN) FHR Baseline Rate (bpm) Baby A: 140 (07/10/2016 07:15:Leilani Batista RN) Variability Baby A: Moderate 6-25 bpm (07/10/2016 18:44:Dorie Edmundo, RN) Variability Baby A: Moderate 6-25 bpm (07/10/2016 18:30:Dorie Edmundo, RN) Variability Baby A: Moderate 6-25 bpm (07/10/2016 18:00:Dorie Edmundo, RN) Variability Baby A: Moderate 6-25 bpm (07/10/2016 17:30:Dorie Edmundo, RN) Variability Baby A: Moderate 6-25 bpm (07/10/2016 17:00:Dorie Edmundo, RN) Variability Baby A: Moderate 6-25 bpm (07/10/2016 16:30:Dorie Edmundo, RN) Variability Baby A: Moderate 6-25 bpm (07/10/2016 16:00:Dorie Edmundo, RN) Variability Baby A: Moderate 6-25 bpm (07/10/2016 15:30:Dorie Edmundo, RN) Variability Baby A: Moderate 6-25 bpm (07/10/2016 15:00:Dorie Edmundo, RN) Variability Baby A: Moderate 6-25 bpm (07/10/2016 14:30:Dorie Edmundo, RN) Variability Baby A: Moderate 6-25 bpm (07/10/2016 14:00:Dorie Edmundo, RN) Variability Baby A: Moderate 6-25 bpm (07/10/2016 13:30:Dorie Edmundo, RN) Variability Baby A: Moderate 6-25 bpm (07/10/2016 13:00:Dorie Edmundo, RN) Variability Baby A: Moderate 6-25 bpm (07/10/2016 12:30:Dorie Edmundo, RN) Variability Baby A: Moderate 6-25 bpm (07/10/2016 12:00:Dorie Edmundo, RN) Variability Baby A: Moderate 6-25 bpm (07/10/2016 11:30:Dorie Edmundo, RN) Variability Baby A: Moderate 6-25 bpm (07/10/2016 11:00:Dorie Edmundo, RN) Variability Baby A: Moderate 6-25 bpm (07/10/2016 10:38:Dorie Edmundo, RN) Variability Baby A: Moderate 6-25 bpm (07/10/2016 10:30:Dorie Edmundo, RN) Variability Baby A: Moderate 6-25 bpm (07/10/2016 10:00:Dorie Edmundo, RN) Variability Baby A: Moderate 6-25 bpm (07/10/2016 09:30:Dorie Edmundo, RN) Variability Baby A: Moderate 6-25 bpm (07/10/2016 09:00:Dorie Edmundo, RN) Variability Baby A: Moderate 6-25 bpm (07/10/2016 08:30:Dorie Edmundo, RN) Variability Baby A: Moderate 6-25 bpm (07/10/2016 08:00:Dorie Edmundo, RN) Variability Baby A: Moderate 6-25 bpm (07/10/2016 07:30:Dorie Edmundo, RN) Variability Baby A: Moderate 6-25 bpm (07/10/2016 07:15:Leilani Batista RN) Accelerations Baby A: 15X15 (07/10/2016 18:44:Dorie Edmundo, RN) Accelerations Baby A: 15X15 (07/10/2016 18:30:Dorie Edmundo, RN) Accelerations Baby A: None (07/10/2016 18:00:Dorie Edmundo, RN) Accelerations Baby A: 15X15 (07/10/2016 17:30:Dorie Edmundo, RN) Accelerations Baby A: 15X15 (07/10/2016 17:00:Dorie Edmundo, RN) Accelerations Baby A: 15X15 (07/10/2016 16:30:Dorie Edmundo, RN) Accelerations Baby A: 15X15 (07/10/2016 16:00:Dorie Edmundo, RN) Accelerations Baby A: 15X15 (07/10/2016 15:30:Dorie Edmundo, RN) Accelerations Baby A: 15X15 (07/10/2016 15:00:Dorie Edmundo, RN) Accelerations Baby A: 15X15 (07/10/2016 14:30:Dorie Edmundo, RN) Accelerations Baby A: 15X15 (07/10/2016 14:00:Dorie Edmundo, RN) Accelerations Baby A: 15X15 (07/10/2016 13:30:Dorie Edmundo, RN) Accelerations Baby A: 15X15 (07/10/2016 13:00:Dorie Edmundo, RN) Accelerations Baby A: None (07/10/2016 12:30:Dorie Edmundo, RN) Accelerations Baby A: 15X15 (07/10/2016 12:00:Dorie Edmundo, RN) Accelerations Baby A: 15X15 (07/10/2016 11:30:Dorie Edmundo, RN) Accelerations Baby A: 15X15 (07/10/2016 11:00:Dorie Edmundo, RN) Accelerations Baby A: 15X15 (07/10/2016 10:38:Dorie Edmundo, RN) Accelerations Baby A: 15X15 (07/10/2016 10:30:Dorie Edmundo, RN) Accelerations Baby A: 15X15 (07/10/2016 10:00:Dorie Edmundo, RN) Accelerations Baby A: 15X15 (07/10/2016 09:30:Dorie Edmundo, RN) Accelerations Baby A: 15X15 (07/10/2016 09:00:Dorie Edmundo, RN) Accelerations Baby A: 15X15 (07/10/2016 08:30:Dorie Edmundo, RN) Accelerations Baby A: 15X15 (07/10/2016 08:00:Dorie Edmundo, RN) Accelerations Baby A: None (07/10/2016 07:30:Dorie Edmundo, RN) Accelerations Baby A: 15X15 (07/10/2016 07:15:Leilani Batista RN) Decelerations Baby A: Variable (07/10/2016 18:44:Dorie Edmundo, RN) Decelerations Baby A: Variable (07/10/2016 18:30:Dorie Edmundo, RN) Decelerations Baby A: Variable (07/10/2016 18:00:Dorie Edmundo, RN) Decelerations Baby A: None (07/10/2016 17:30:Dorie Edmundo, RN) Decelerations Baby A: None (07/10/2016 17:00:Dorie Wyatt, RN) Decelerations Baby A: None (07/10/2016 16:30:Dorie Wyatt, RN) Decelerations Baby A: None (07/10/2016 16:00:Dorie Wyatt, RN) Decelerations Baby A: None (07/10/2016 15:30:Dorie Wyatt RN) Decelerations Baby A: None (07/10/2016 15:00:Dorie Wyatt RN) Decelerations Baby A: None (07/10/2016 14:30:Dorie Wyatt, RN) Decelerations Baby A: None (07/10/2016 14:00:Dorie Wyatt RN) Decelerations Baby A: None (07/10/2016 13:30:Dorie Wyatt RN) Decelerations Baby A: None (07/10/2016 13:00:Dorie Wyatt RN) Decelerations Baby A: None (07/10/2016 12:30:Dorie Wyatt RN) Decelerations Baby A: None (07/10/2016 12:00:Dorie Wyatt, RN) Decelerations Baby A: None (07/10/2016 11:30:Dorie Wyatt RN) Decelerations Baby A: None (07/10/2016 11:00:Dorie Wyatt, RN) Decelerations Baby A: None (07/10/2016 10:38:Dorie Wyatt RN) Decelerations Baby A: None (07/10/2016 10:30:Dorie Wyatt RN) Decelerations Baby A: None (07/10/2016 10:00:Dorie Wyatt, RN) Decelerations Baby A: None (07/10/2016 09:30:Dorie Wyatt RN) Decelerations Baby A: None (07/10/2016 09:00:Dorie Wyatt RN) Decelerations Baby A: None (07/10/2016 08:30:Dorie Wyatt, RN) Decelerations Baby A: None (07/10/2016 08:00:Dorie Wyatt RN) Decelerations Baby A: None (07/10/2016 07:30:Dorie Wyatt RN) Decelerations Baby A: None (07/10/2016 07:15:Leilani Batista RN) Assessment Flag: Admission Assessment (07/10/2016 07:00:QS system process)
--- NOTE | 2016-07-11 04:46 | L&D Flow Sheet ---
LD Flowsheet Datetime Report Generated by CPN: 07/11/2016 04:45 Datetime: 07/10/2016 20:29 NBP Sys/Desire/Mean (mmHg): 110 (QS system process) : 59 (QS system process) : 79 (QS system process) Pulse: 83 (QS system process) Respirations: 16 (Radha Ruiz RN) Temperature (F): 99.0 (Radha Ruiz RN) Temperature (C): 37.2 (QS system process) Temperature Route: Axillary (Radha Ruiz RN) Pain Scale: 3 (Radha Ruiz RN) Pain Presence: Constant (Radha Ruiz RN) Pain Type: Cramping (Radha Ruiz RN) Pain Location: Abdomen (Radha Ruiz RN) Pain Relief Measures: medicine was given @ 2010 (Radha Ruiz RN) Datetime: 07/10/2016 20:14 NBP Sys/Desire/Mean (mmHg): 112 (QS system process) : 57 (QS system process) : 78 (QS system process) Pulse: 93 (QS system process) Respirations: 16 (Brittney Joanne, SOCO) Datetime: 07/10/2016 20:11 Pain Scale: 3 (Brittney Rubio, SOCO) Pain Presence: Constant (Brittney Rubio, SOCO) Pain Type: Cramping (Brittney Rubio, SOCO) Pain Location: Abdomen (Brittney Ruboi, SOCO) Pain Relief Measures: Pain Medication Given; Comfort Measures (Brittney Rubio, ) Datetime: 07/10/2016 19:59 NBP Sys/Desire/Mean (mmHg): 115 (QS system process) : 55 (QS system process) : 79 (QS system process) Pulse: 83 (QS system process) Datetime: 07/10/2016 19:44 NBP Sys/Desire/Mean (mmHg): 114 (QS system process) : 59 (QS system process) : 81 (QS system process) Pulse: 72 (QS system process) Respirations: 18 (Radha Ruiz RN) Epidural Procedure Other: Cath Removed; Cath Intact (Radha Ruiz RN) Datetime: 07/10/2016 19:30 Stage of : Recovery (Radha Ruiz RN) Respirations: 18 (Radha Ruiz RN) Temperature (F): 97.4 (Radha Ruiz RN) Temperature (C): 36.3 (QS system process) Temperature Route: Oral (Radha Ruiz RN) Pain Scale: 0 (Radha Ruiz RN) Pain Presence: None/Denies (Radha Ruiz RN) Level of Consciousness: Fully Conscious (Radha Ruiz RN) DTR's/Clonus: DTRs 2+; No Clonus (Radha Ruiz RN) Headache: Denies (Radha Ruiz RN) Breath Sounds, Left: Clear and Equal (Radha Ruiz RN) Breath Sounds, Right: Clear and Equal (Radha Ruiz RN) Nausea/Vomiting: Denies (Radha Ruiz RN) RUQ Epigastric Pain: Denies (Radha Ruiz RN) Datetime: 07/10/2016 19:29 NBP Sys/Desire/Mean (mmHg): 114 (QS system process) : 59 (QS system process) : 83 (QS system process) Pulse: 76 (QS system process) LaborFlag: Antepartum (QS system process) Datetime: 07/10/2016 19:15 NBP Sys/Desire/Mean (mmHg): 113 (QS system process) : 56 (QS system process) : 80 (QS system process) Pulse: 79 (QS system process) Pain Scale: 0 (Dorie Edmundo, RN) Pain Presence: None/Denies (Dorie Edmundo, RN) Pain Type: N/A (Dorie Edmundo, RN) LaborFlag: Antepartum (QS system process) Datetime: 07/10/2016 19:00 Respirations: 15 (Dorie Edmundo, RN) Pain Scale: 0 (Dorie Edmundo, RN) Pain Presence: None/Denies (Dorie Edmundo, RN) Pain Type: N/A (Dorie Edmundo, RN) LaborFlag: Antepartum (QS system process) Datetime: 07/10/2016 18:48 Respirations: 16 (Dorie Edmundo, RN) Pain Scale: 0 (Dorie Edmundo, RN) Pain Presence: None/Denies (Dorie Edmundo, RN) Pain Type: N/A (Dorie Edmundo, RN) LaborFlag: Antepartum (QS system process) Datetime: 07/10/2016 18:44 Monitor Mode: External (Dorie Edmundo, RN) Frequency (min): 2-3 (Dorie Edmundo, RN) Quality: Moderate to Strong (Dorie Edmundo, RN) Duration (sec): 60-70 (Dorie Edmundo, RN) Resting Tone (Palpate): Relaxed (Dorie Edmundo, RN) Monitor Mode: External US (Dorie Edmundo, RN) FHR Baseline Rate : 145 (Dorie Edmundo, RN) Variability: Moderate 6-25 bpm (Dorie Edmundo, RN) Accelerations: 15X15 (Dorie Edmundo, RN) Decelerations: Variable (Dorie Edmundo, RN) Stage 2 Comments: of viable baby girl (Dorie Edmundo, RN) Datetime: 07/10/2016 18:30 Monitor Mode: External; Palpation (Dorie Edmundo, RN) Frequency (min): 2-3 (Dorie Edmundo, RN) Quality: Moderate to Strong (Dorie Edmundo, RN) Duration (sec): 60-80 (Dorie Edmundo, RN) Resting Tone (Palpate): Relaxed (Dorie Edmundo, RN) Monitor Mode: External US (Dorie Edmundo, RN) FHR Baseline Rate : 130 (Dorie Edmundo, RN) Variability: Moderate 6-25 bpm (Dorie Edmundo, RN) Accelerations: 15X15 (Dorie Edmundo, RN) Decelerations: Variable (Dorie Edmundo, RN) Datetime: 07/10/2016 18:25 Pushing: Coached on Pushing; Urge to Push (Dorie Edmundo, RN) Pushing Position: Pushing with Contractions (Dorie Edmundo, RN) Pushing Progress: Descent with Pushing (Dorie Edmundo, RN) Stage 2 Comments: RN and CNM remain at bedside while pushing with pt and assessing FHTs (Dorie Edmundo, RN) Datetime: 07/10/2016 18:22 I/O Interventions: George Discontinued (Dorie Edmundo, RN) Datetime: 07/10/2016 18:20 Dilatation (cm): 10.0 (Dorie Edmundo, RN) Effacement (%): 100 (Dorie Raineymes, RN) Station: 1 (Dorie Raineymes, RN) Exam by: H. Nguyễn CNM (Dorie Raineymes, RN) Datetime: 07/10/2016 18:15 NBP Sys/Desire/Mean (mmHg): 124 (QS system process) : 72 (QS system process) : 90 (QS system process) Pulse: 86 (QS system process) LaborFlag: Antepartum (QS system process) Datetime: 07/10/2016 18:00 NBP Sys/Desire/Mean (mmHg): 126 (QS system process) : 71 (QS system process) : 92 (QS system process) Pulse: 83 (QS system process) Monitor Mode: External (Dorie Edmundo, RN) Frequency (min): 2-3 (Dorie Edmundo, RN) Quality: Moderate to Strong (Dorie Edmundo, RN) Duration (sec): 60-80 (Dorie Edmundo, RN) Resting Tone (Palpate): Relaxed (Dorie Edmundo, RN) Monitor Mode: External US (Dorie Edmundo, RN) FHR Baseline Rate : 130 (Dorie Edmundo, RN) Variability: Moderate 6-25 bpm (Dorie Edmundo, RN) Accelerations: None (Dorie Edmundo, RN) Decelerations: Variable (Dorie Edmundo, RN) LaborFlag: Antepartum (QS system process) Datetime: 07/10/2016 17:44 NBP Sys/Desire/Mean (mmHg): 132 (QS system process) : 80 (QS system process) : 101 (QS system process) Pulse: 98 (QS system process) Patient Position/Activity: Tailors (Dorie Edmundo, RN) LaborFlag: Antepartum (QS system process) Datetime: 07/10/2016 17:42 Dilatation (cm): 9.0 (Dorie Edmundo, RN) Effacement (%): 100 (Dorie Edmundo, RN) Station: 0 (Dorie Edmundo, RN) Exam by: Carley Wyatt (Dorie Edmundo, RN) Vaginal Exam Comments: Robson Adrian CNM informed of SVE. No new orders at this time (Dorie Edmundo, RN) Datetime: 07/10/2016 17:30 NBP Sys/Desire/Mean (mmHg): 141 (QS system process) : 86 (QS system process) : 108 (QS system process) Pulse: 85 (QS system process) Monitor Mode: External (Dorie Edmundo, RN) Frequency (min): 2-3 (Dorie Edmundo, RN) Quality: Moderate to Strong (Dorie Edmundo, RN) Duration (sec): 60-90 (Dorie Edmundo, RN) Resting Tone (Palpate): Relaxed (Dorie Edmundo, RN) Monitor Mode: External US (Dorie Edmundo, RN) FHR Baseline Rate : 135 (Dorie Edmundo, RN) Variability: Moderate 6-25 bpm (Dorie Edmundo, RN) Accelerations: 15X15 (Dorie Edmundo, RN) Decelerations: None (Dorie Edmundo, RN) LaborFlag: Antepartum (QS system process) Datetime: 07/10/2016 17:29 Temperature (F): 98.0 (Dorie Edmundo, RN) Temperature (C): 36.7 (QS system process) LaborFlag: Antepartum (QS system process) Datetime: 07/10/2016 17:15 Patient Position/Activity: Right Lateral; Peanut Ball (Dorie Edmundo, RN) Datetime: 07/10/2016 17:00 Monitor Mode: External (Dorie Edmundo, RN) Frequency (min): 3-4 (Dorie Edmundo, RN) Quality: Moderate (Dorie Edmundo, RN) Duration (sec): 60-80 (Dorie Edmundo, RN) Resting Tone (Palpate): Relaxed (Dorie Edmundo, RN) Monitor Mode: External US (Dorie Edmundo, RN) FHR Baseline Rate : 125 (Dorie Edmundo, RN) Variability: Moderate 6-25 bpm (Dorie Edmundo, RN) Accelerations: 15X15 (Dorie Edmundo, RN) Decelerations: None (Dorie Edmundo, RN) Datetime: 07/10/2016 16:59 NBP Sys/Desire/Mean (mmHg): 119 (QS system process) : 58 (QS system process) : 84 (QS system process) Pulse: 78 (QS system process) LaborFlag: Antepartum (QS system process) Datetime: 07/10/2016 16:45 NBP Sys/Desire/Mean (mmHg): 119 (QS system process) : 60 (QS system process) : 83 (QS system process) Pulse: 74 (QS system process) LaborFlag: Antepartum (QS system process)
--- NOTE | 2016-07-11 04:46 | L&D General Admission ---
General Admit Datetime Report Generated by [facility]: 07/11/2016 04:45 Height (in): 71 (07/10/2016 20:51:QS system process) Height (in): 71 (07/10/2016 13:01:QS system process) Height (in): 71 (07/10/2016 10:05:QS system process) Height (in): 71 (07/10/2016 07:04:QS system process) Hemoglobin: 12.0 (07/10/2016 11:20:QS system process) Hematocrit: 34.8 L (07/10/2016 11:20:QS system process) MCV: 85 (07/10/2016 11:20:QS system process)
[2016-07-11] MEDS: IBUPROFEN 800 MG TABLET PO SCH ×3 (05:18→21:57)
[2016-07-11] MEDS: ACETAMINOPHEN WITH CODEINE #3 TABLET PO PRN (05:20)
--- NOTE | 2016-07-11 06:23 | L&D General Admission ---
General Admit Datetime Report Generated by CPN: 07/11/2016 06:00 INFORMATION Patient Age: 30 (04/26/2016 23:19:QS system process) EDC: 07/03/2016 00:00 (04/26/2016 23:31:Sara Carreon RN) : 2 (04/26/2016 23:31:Sara Carreon RN) Para: 1 (04/26/2016 23:31:Sara Carreon RN) Term: 1 (04/26/2016 23:31:Sara Carreon RN) : 0 (04/26/2016 23:31:Leilani Batista RN) Spontaneous Abortions: 0 (04/26/2016 23:31:Leilani Batista RN) Induced Abortions: 0 (04/26/2016 23:31:Leilani Batista RN) Livin (04/26/2016 23:31:Leilani Batista RN) Cesareans: 0 (04/26/2016 23:31:Leilani Batista RN) VBACs: 0 (04/26/2016 23:31:Leilani Batista RN) Ectopic: 0 (04/26/2016 23:31:Leilani Batista RN) Multiple Births: 0 (04/26/2016 23:31:Leilani Batista RN) Baby, Number in Womb: 1 (07/03/2016 20:24:Radha Ruiz RN) CARE Primary Certified Medical Records Coder: [email or web address] (04/26/2016 23:31:Sara Carreon RN) Adequate Care: Yes (04/26/2016 23:31:Sara Carreon RN) Height (in): 71 (07/10/2016 20:51:QS system process) ALLERGIES Medication Allergy: No (04/26/2016 23:31:Sara Carreon RN) Medication Allergies: NA (04/26/2016 23:31:Sara Carreon RN) Latex Allergy: No Latex Allergies (04/26/2016 23:31:Sara Carreon RN) Food Allergies: NA (04/26/2016 23:31:Sara Carreon RN) Environmental Allergies: Bee stings (04/26/2016 23:31:Sara Carreon RN) COMMUNICATION Primary Language: Cypriot (04/26/2016 23:31:Sara Carreon RN) Medical Tx Preferred Language: Cypriot (04/26/2016 23:31:Sara Carreon RN) Communication Barrier(s): None (04/26/2016:31:Sara Carreon RN) DEMOGRAPHICS Address: [address] [place] [id number] (04/26/2016 23:19:QS system process) Zipcode: [phone] (04/26/2016 23:19:QS system process) Home (04/26/2016 23:19:QS system process) Work (04/26/2016 23:19:QS system process) N: [id number] (04/26/2016 23:19:QS system process) Next of Kin Name: DREW MONAE (06/23/2016 12:02:QS system process) Next of Kin (06/23/2016 12:02:QS system process) Next of Kin Relationship: OR (06/23/2016 12:02:QS system process) Date of : 1985 (04/26/2016 23:19:QS system process) Marital Status: Single (04/26/2016 23:19:QS system process) Sex: Female (04/26/2016 23:19:QS system process) Occupation: Other (04/26/2016 23:31:Leilani Batista RN) 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 [id number] (04/26/2016 23:31:Sara Carreon RN) Marijuana: No (04/26/2016 23:31:Sara Carreon RN) Cocaine: No (04/26/2016 23:31:Sara Carreon RN) Other Illicit Drugs: No (04/26/2016 23:31:Sara Carreon RN) VACCINE HISTORY Influenza Vaccine: Yes (04/26/2016 23:31:Sara Carreon RN) Influenza Date: 05/2017 (04/26/2016 23:31:Gia Ng RN) Pneumococcal Vaccine: No (04/26/2016 23:31:Sara Carreon RN) Tetanus Vaccine: Yes (04/26/2016 23:31:Sara Carreon RN) Tetanus Date: 2011 (04/26/2016 23:31:Sara Carreon RN) Tdap Vaccine: Yes (04/26/2016 23:31:Sara Carreon RN) Tdap Date: 2015 (04/26/2016 23:31:Sara Carreon RN) Hepatitis B Vaccine: Uncertain (04/26/2016 23:31:Sara Carreon RN) Photographer Still: [facility] (04/26/2016 23:31:Sara Carreon RN) Feeding Preference: Formula (04/26/2016 23:31:Sara Carreon RN) Benefit of Breast Feed Discussed: Yes (04/26/2016 23:31:Sara Carreon RN) Circumcision: N/A (04/26/2016 23:31:Sara Carreon RN) Classes Attended: No (04/26/2016 23:31:Sara Carreon RN) Tubal Ligation: Yes (04/26/2016 23:31:Sara Carreon RN) Tubal Authorization Signed: No (04/26/2016 23:31:Sara Carreon RN) Consent: N/A (04/26/2016 23:31:Sara Carreon RN) Consent Signed: N/A (04/26/2016 23:31:Sara Carreon RN) Pain Management Plans: Epidural (04/26/2016 23:31:Sara Carreon RN) Plans for Labor and Delivery: None (04/26/2016 23:31:Sara Carreon RN) Support Person: Drew Monae (04/26/2016 23:31:Sara Carreon RN) Support Person Relationship: Significant Other (04/26/2016 23:31:Sara Carreon RN) Cultural/Spritual Practice: No (04/26/2016 23:31:Sara Carreon RN) Spir/Cult Dietary Needs: No (04/26/2016 23:31:Sara Carreon RN) LIVING SITUATION/DISCHARGE PLAN Living Arrangements: House (04/26/2016 23:31:Sara Carreon RN) Adequate Access to:: Electric; Heat; Refrigeration; Plumbing/Running water; Phone; Transportation (04/26/2016 23:31:Sara Carreon RN) WIC Program: No (04/26/2016 23:31:Leilani Batista RN) Discharge Filtering Machine Tender Person: Drew Monae (04/26/2016 23:31:Sara Carreon RN) Person to Help after Discharge: Drew Monae (04/26/2016 23:31:Sara Carreon RN) Currently Using Commun Resources: Yes (04/26/2016 23:31:Sara Carreon RN) Specify Current Resource Used: EBT (04/26/2016 23:31:Leilani Batista RN) Outside Agency/Yarn Dumper: Yes (04/26/2016 23:31:Sara Carreon RN) Car Seat for Discharge: No (04/26/2016 23:31:Sara Carreon RN) Adoption Requested: No (04/26/2016 23:31:Sara Carreon RN) Pt Contact w/infant Post : N/A (04/26/2016 23:31:Sara Carreon RN) LABS Blood Type: A Positive (04/26/2016 23:31:Sara Carreon RN) Antibody Screen: negative (04/26/2016 23:31:Leilani Batista RN) Hemoglobin: 12.0 (07/10/2016 11:20:QS system process) Hematocrit: 34.8 L (07/10/2016 11:20:QS system process) MCV: 85 (07/10/2016 11:20:QS system process) Group Beta Strep: Positive (04/27/2016 01:05:Leilani Batista RN) Gonorrhea: Negative (04/26/2016 23:31:Leilani Batista RN) Chlamydia: Negative (04/26/2016 23:31:Leilani Batista RN) RPR/VDRL: Nonreactive (04/26/2016 23:31:Sara Carreon RN) HIV Results: negative (04/26/2016 23:31:Leilani Batista RN) Hepatitis B: Negative (04/26/2016 23:31:Leilani Batista RN) Rubella: Immune (04/26/2016 23:31:Sara Carreon RN) OB/PREVIOUS HISTORY Previous Procedures: Ultrasound; NST (04/26/2016 23:31:Sara Carreon RN) Current Procedures: Ultrasound; NST (04/26/2016 23:31:Leilani Batista RN) History of Previous : No (04/26/2016 23:31:Sara Carreon RN) History of Gestational Diabetes: No (04/26/2016 23:31:Sara Carreon RN) History of PIH: No (04/26/2016 23:31:Sara Carreon RN) History of Incompetent Cervix: No (04/26/2016 23:31:Sara Carreon RN) History of Placenta Previa/Abrup: No (04/26/2016 23:31:Sara Carreon RN) History of Macrosomia: No (04/26/2016 23:31:Sara Carreon RN) History of IUGR: No (04/26/2016 23:31:Sara Carreon RN) History of Hemorrhage: No (04/26/2016 23:31:Sara Carreon RN) History of Loss/Stillborn: No (04/26/2016 23:31:Sara Careron RN) History of : No (04/26/2016 23:31:Sara Carreon RN) History of D (Rh) Sensitization: No (04/26/2016 23:31:Sara Carreon RN) History Recurrent Loss/Stillborn: No (04/26/2016 23:31:Sara Carreon RN) History Depression/PP Depression: No (04/26/2016 23:31:Sara Carreon RN) History of Uterine Anomaly/ECHO: No (04/26/2016 23:31:Sara Carreon RN) History of Infertility: No (04/26/2016 23:31:Sara Carreon RN) History of ART Treatment: No (04/26/2016 23:31:Sara Carreon RN) History of ECHO: No (04/26/2016 23:31:Sara Carreon RN) Comments Obstetrical History: G1: 2005 10 pound 2 ounce male G2: Current (04/26/2016 23:31:Leilani Batista RN) MEDICAL HISTORY Med Hx Diabetes: No (04/26/2016 23:31:Sara Carreon RN) Med Hx Hypertension: No (04/26/2016 23:31:Sara Carreon RN) Med Hx Heart Disease: Yes (04/26/2016 23:31:Sara Carreon RN) Med Hx Autoimmune Disorder: No (04/26/2016 23:31:Sara Carreon RN) Med Hx Kidney Disease/UTI: No (04/26/2016 23:31:Sara Carreon RN) Med Hx Neurologic/Epilepsy: No (04/26/2016 23:31:Sara Carreon RN) Med Hx Psychiatric Disorders: No (04/26/2016 23:31:Sara Carreon RN) Med Hx Hepatitis/Liver Disease: No (04/26/2016 23:31:Sara Carreon RN) Med Hx Varicosities/Phlebitis: No (04/26/2016 23:31:Sara Carreon RN) Med Hx Thyroid Dysfunction: No (04/26/2016 23:31:Sara Carreon RN) Med Hx Trauma/Violence: No (04/26/2016 23:31:Sara Carreon RN) Med Hx Blood Transfusion: No (04/26/2016 23:31:Sara Carreon RN) Med Hx Pulmonary (Asthma,TB): No (04/26/2016 23:31:Sara Carreon RN) Med Hx Breast: No (04/26/2016 23:31:Sara Carreon RN) Med Hx TRAFFIC CHIEF Surgery: No (04/26/2016 23:31:Sara Carreon RN) Med Hx Hospitalization/Surgery: No (04/26/2016 23:31:Sara Carreon RN) Med Hx Anesthetic Complications: No (04/26/2016 23:31:Sara Carreon RN) Med Hx Abnormal Pap Smear: No (04/26/2016 23:31:Sara Carreon RN) Other Medical Diseases: No (04/26/2016 23:31:Sara Carreon RN) Med Hx Significant Family Hx: No (04/26/2016 23:31:Sara Carreon RN) Details of Med/Surg 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 (04/26/2016 23:31:Sara Carreon RN) INFECTIOUS HISTORY Inf Hx Gonorrhea: No (04/26/2016 23:31:Sara Carreon RN) Inf Hx Chlamydia: No (04/26/2016 23:31:Sara Carreon RN) Inf Hx Syphilis: No (04/26/2016 23:31:Sara Carreon RN) Inf Hx HIV/AIDS: No (04/26/2016 23:31:Sara Carreon RN) Inf Hx Human Papilloma Virus: No (04/26/2016 23:31:Sara Carreon RN) Inf Hx Pt/Partner Genital Herpes: No (04/26/2016 23:31:Sara Carreon RN) Inf Hx Tuberculosis/Exposure: No (04/26/2016 23:31:Sara Carreon RN) Inf Hx Hepatitis B,C: No (04/26/2016 23:31:Sara Carreon RN) Inf Hx Rash or Viral Illness: No (04/26/2016 23:31:Sara Carreon RN) GENETIC HISTORY Gen Hx Age >=35 at CARLO: No (04/26/2016 23:31:Sara Carreon RN) Gen Hx Thalassemia: No (04/26/2016 23:31:aSra Carreon RN) Gen Hx Congenital Heart Defect: No (04/26/2016 23:31:Sara Carreon RN) Gen Hx Neural Tube Defect: No (04/26/2016 23:31:Sara Carreon RN) Gen Hx Down's Syndrome: No (04/26/2016 23:31:Sara Carreon RN) Gen Hx Tremaine-Sachs: No (04/26/2016 23:31:Sara Carreon RN) Gen Hx Delmar: No (04/26/2016 23:31:Sara Carreon RN) Gen Hx Familial Dysautonomia: No (04/26/2016 23:31:Sara Carreon RN) Gen Hx Sickle Cell Disease/Trait: No (04/26/2016 23:31:Sara Carreon RN) Gen Hx Hemophilia/Blood Disorder: No (04/26/2016 23:31:Sara Carreon RN) Gen Hx Muscular Dystrophy: No (04/26/2016 23:31:Sara Carreon RN) Gen Hx Cystic Fibrosis: No (04/26/2016 23:31:Sara Carreon RN) Gen Hx Huntingtons Chorea: No (04/26/2016 23:31:Sara Carreon RN) Gen Hx Mental Retardation/Autism: No (04/26/2016 23:31:Sara Carreon RN) Gen Hx Tested for Fragile X: No (04/26/2016 23:31:Sara Carreon RN) Gen Hx Other Inher/Chromosomal: No (04/26/2016 23:31:Sara Carreon RN) Gen Hx Maternal Metabolic DO: No (04/26/2016 23:31:Sara Carreon RN) Gen Hx Pt Father or FOB Defect: No (04/26/2016 23:31:Sara Carreon RN) Gen Hx Other Genetic History: No (04/26/2016 23:31:Sara Carreon RN) Gen Hx Drugs/Meds since LMP: Yes (04/26/2016 23:31:Sara Carreon RN) Gen Hx Medications: vitamin tylenol 1000mg for abd pain tylenol (04/26/2016 23:31:Sara Carreon RN)
--- NOTE | 2016-07-11 06:23 | L&D Current Admission ---
Current Admit Datetime Report Generated by CPN: 07/11/2016 06:00 ADMISSION INFORMATION Current Admit Date/Time: 07/10/2016 06:00 (06/23/2016 12:47:Leilani Batista RN) Reason for Admission: Induction of Labor (06/23/2016 12:47:Leilani Batista RN) Chief Complaint: Scheduled Induction of Labor (07/10/2016 07:30:Dorie Wyatt RN) Medications During : Vitamin (06/23/2016 12:47:Leilani Batista RN) EGA per Dates: 41.0 (06/23/2016 12:47:QS system process) Method of Arrival: Ambulatory (06/23/2016 12:47:Leilani Batista RN) Admitted From: Home (06/23/2016 12:47:Leilani Batista RN) Reason for Induction: Postterm (06/23/2016 12:47:Leilani Batista RN) Records Available: Yes (06/23/2016 12:47:Leilani Batista RN) General Admission Information: Reviewed (06/23/2016 12:47:Leilani Batista RN) BELONGINGS/ADVANCED DIRECTIVES Comments Regarding Disposition: see [facility] consent form (06/23/2016 12:47:Leilani Batista RN) Advance Direct for Healthcare: No, and Wants No Information (06/23/2016 12:47:Leilani Batista RN) Durable Power of Pbx Wire Chief: No (06/23/2016 12:47:Leilani Batista RN) Living Will: No (06/23/2016 12:47:Leilani Batista RN) Organ Donor: No (06/23/2016 12:47:Leilani Batista RN) Pt Rights Information Given: Yes (06/23/2016 12:47:Leilani Batista RN) Pt Understands Pt Rights: Yes (06/23/2016 12:47:Leilani Batista RN) LEARNING ASSESSMENT Knowledge Level: Understands L_D Process (06/23/2016 12:47:Leilani Batista RN) Barriers to Learning: None (06/23/2016 12:47:Leilani Batista RN) Learning Readiness: Motivated (06/23/2016 12:47:Leilani Batista RN) Learns Best By: 1 to 1 Instruction; Reading; Videos; Demonstration (06/23/2016 12:47:Leilani Batista RN) Learning Needs: Labor and Delivery Process; Pain Management; Symptoms to Report; Treatment Plan; Medication; Diagnosis; Nutrition; Equipment; Infant Care; Community Resources (06/23/2016 12:47:Leilani Batista RN) DOMESTIC VIOLANCE SCREENING Dom Viol Threatened/Hurt: No (06/23/2016 12:47:Leilani Batista RN) Hx of Abuse/Neglect past 2yrs: No (06/23/2016 12:47:Leilani Batista RN) Feel Unsafe Going Home: No (06/23/2016 12:47:Leilani Batista RN) Addt'l Observ Indicating Abuse: No (06/23/2016 12:47:Leilani Batista RN) Reason Unable to Complete Screen: N/A, Screen Completed (06/23/2016 12:47:Leilani Batista RN) Considered Personal Harm/Suicide: No (06/23/2016 12:47:Leilani Batista RN) NUTRITIONAL/FUNCTIONAL SCREENING Problem with Appetite >5 Days: No (06/23/2016 12:47:Leilani Batista RN) Chew/Swallow Difficulties: No (06/23/2016 12:47:Leilani Batista RN) Inappropriate Wt Gain/Loss: No (06/23/2016 12:47:Leilani Batista RN) Presence Skin Breakdown/Ulcer: No (06/23/2016 12:47:Leilani Batista RN) Special Diet: No (06/23/2016 12:47:Leilani Batista RN) Pt Requests Residential Energy Auditor Visit: No (06/23/2016 12:47:Leilani Batista RN) Hx of Any of the Following?: N/A (06/23/2016 12:47:Leilani Batista RN) New Diagnosis of: N/A (06/23/2016 12:47:Leilani Batista RN) Requires Assist w/Ambulation: No (06/23/2016 12:47:Leilani Batista RN) Uses Assist Device to Ambulate: No (06/23/2016 12:47:Leilani Batista RN) Pt Requires Help w/ADL's: No (06/23/2016 12:47:Leilani Batista RN)
--- NOTE | 2016-07-11 07:01 | L&D Flow Sheet ---
LD Flowsheet Datetime Report Generated by CPN: 07/11/2016 07:00 Datetime: 07/10/2016 20:29 NBP Sys/Desire/Mean (mmHg): 110 (QS system process) : 59 (QS system process) : 79 (QS system process) Pulse: 83 (QS system process) Respirations: 16 (Radha Ruiz RN) Temperature (F): 99.0 (Radha Ruiz RN) Temperature (C): 37.2 (QS system process) Temperature Route: Axillary (Radha Ruiz RN) Pain Scale: 3 (Radha Ruiz RN) Pain Presence: Constant (Radha Ruiz RN) Pain Type: Cramping (Radha Ruiz RN) Pain Location: Abdomen (Radha Ruiz RN) Pain Relief Measures: medicine was given @ 2010 (Radha Ruiz RN) Datetime: 07/10/2016 20:14 NBP Sys/Desire/Mean (mmHg): 112 (QS system process) : 57 (QS system process) : 78 (QS system process) Pulse: 93 (QS system process) Respirations: 16 (Brittney Joanne, SOCO) Datetime: 07/10/2016 20:11 Pain Scale: 3 (Brittney Rubio, SOCO) Pain Presence: Constant (Brittney Rubio, SOCO) Pain Type: Cramping (Brittney Rubio, SOCO) Pain Location: Abdomen (Brittney Rubio, SOCO) Pain Relief Measures: Pain Medication Given; Comfort Measures (Brittney Rubio, ) Datetime: 07/10/2016 19:59 NBP Sys/Desire/Mean (mmHg): 115 (QS system process) : 55 (QS system process) : 79 (QS system process) Pulse: 83 (QS system process) Datetime: 07/10/2016 19:44 NBP Sys/Desire/Mean (mmHg): 114 (QS system process) : 59 (QS system process) : 81 (QS system process) Pulse: 72 (QS system process) Respirations: 18 (Radha Ruiz RN) Epidural Procedure Other: Cath Removed; Cath Intact (Radha Ruiz RN) Datetime: 07/10/2016 19:30 Stage of : Recovery (Radha Ruiz RN) Respirations: 18 (Radha Ruiz RN) Temperature (F): 97.4 (Radha Ruiz RN) Temperature (C): 36.3 (QS system process) Temperature Route: Oral (Radha Ruiz RN) Pain Scale: 0 (Radha Ruiz RN) Pain Presence: None/Denies (Radha Ruiz RN) Level of Consciousness: Fully Conscious (Radha Ruiz RN) DTR's/Clonus: DTRs 2+; No Clonus (Radha Ruiz RN) Headache: Denies (Radha Ruiz RN) Breath Sounds, Left: Clear and Equal (Radha Ruiz RN) Breath Sounds, Right: Clear and Equal (Radha Ruiz RN) Nausea/Vomiting: Denies (Radha Ruiz RN) RUQ Epigastric Pain: Denies (Radha Ruiz RN) Datetime: 07/10/2016 19:29 NBP Sys/Desire/Mean (mmHg): 114 (QS system process) : 59 (QS system process) : 83 (QS system process) Pulse: 76 (QS system process) LaborFlag: Antepartum (QS system process) Datetime: 07/10/2016 19:15 NBP Sys/Desire/Mean (mmHg): 113 (QS system process) : 56 (QS system process) : 80 (QS system process) Pulse: 79 (QS system process) Pain Scale: 0 (Dorie Wyatt RN) Pain Presence: None/Denies (Dorie Wyatt, RN) Pain Type: N/A (Dorie Edmundo, RN) LaborFlag: Antepartum (QS system process) Datetime: 07/10/2016 19:00 Respirations: 15 (Dorie Wyatt RN) Pain Scale: 0 (Dorie Wyatt, RN) Pain Presence: None/Denies (Dorie Wyatt, RN) Pain Type: N/A (Dorie Wyatt, RN) LaborFlag: Antepartum (QS system process)
[2016-07-11 07:59] LABS: HEMATOCRIT 33.3 % (36.0-47.0); HEMOGLOBIN 11.3 g/dL (12.0-15.5); HGB HCT DIFFERENCE 0.6; MEAN CORPUSCULAR HEMOGLOBIN 28.7 pg (27.0-33.4); MEAN CORPUSCULAR HGB CONC 33.8 g/dL (32.0-36.0); MEAN CORPUSCULAR VOLUME 85 fl (80-97); RED BLOOD COUNT 3.93 10^6/uL (3.72-5.28); RED CELL DISTRIBUTION WIDTH 13.1 % (11.5-14.0); WHITE BLOOD COUNT 11.6 10^3/uL (4.0-10.5)
[2016-07-11] MEDS: SENNOSIDES/DOCUSATE 8.6-50 MG 1 EACH TABLET PO SCH (09:36)
[2016-07-11] MEDS: DOCUSATE SODIUM 100 MG CAPSULE PO SCH ×2 (09:36→18:24)
[2016-07-11] MEDS: FERROUS SULFATE 325 MG TABLET PO SCH ×2 (09:36→18:24)
[2016-07-11] MEDS: PRENATAL VITAMIN W-O CA NO5/FE FUMARATE/FA CAPSULE PO SCH (09:36)
--- NOTE | 2016-07-11 10:46 | PDOC PROGRESS REPORT ---
Subjective-OB Subjective: Post Delivery Day: 1 30 year old. Denies any needs at this time, states lochia is stable, tolerating diet, voiding without difficulty. Physical Exam (OB) Vital Signs: Temp Pulse Resp BP Pulse Ox 97.5 F 77 18 117/71 99 07/11/16 07:34 07/11/16 07:34 07/11/16 07:34 07/11/16 07:34 07/11/16 07:34 Intake & Output 07/10/16 07/11/16 07/12/16 06:59 06:59 06:59 Intake Total 400 Balance 400 Weight 95.65 kg - Lochia Lochia Amount: Scant < 10 ml Lochia Color: Rubra/Red - Abdomen Description: Tender, Soft Hernia Present: No Fundal Description: Firm, Midline Fundal Height: u/u - u/2 Objective-Diagnostic Laboratory: 07/11/16 07:29 07/10/16 07/10/16 07/11/16 11:20 11:20 07:29 WBC 9.7 11.6 H RBC 4.10 3.93 Hgb 12.0 11.3 L Hct 34.8 L 33.3 L MCV 85 85 MCH 29.2 28.7 MCHC 34.5 33.8 RDW 13.2 13.1 Plt Count 218 205 Seg Neutrophils % 66.2 Lymphocytes % 26.5 Monocytes % 6.1 Eosinophils % 0.7 Basophils % 0.5 Absolute Neutrophils 6.4 Absolute Lymphocytes 2.6 Absolute Monocytes 0.6 Absolute Eosinophils 0.1 Absolute Basophils 0.1 Blood Type A POSITIVE Antibody Screen NEGATIVE Assessment and Plan(PN) - Assessment and Plan (1) Vaginal delivery Is this a current diagnosis for this admission?: YesPlan: routine pp care (2) Poor dentition Is this a current diagnosis for this admission?: YesPlan: dental f/u (3) Pulmonary stenosis Qualifiers: Cardiac valve disease etiology: etiology unspecified Qualified Code( s): I37.0 - Nonrheumatic pulmonary valve stenosis Is this a current diagnosis for this admission?: YesPlan: cardiology follow up - Time Spent with Patient Time with patient: Less than 15 minutes Critical Time spent with patient: Less than 15 minutes Medications reviewed and adjusted accordingly: Yes - Disposition Anticipated Discharge: Home Within: within 48 hours
[2016-07-12] MEDS: IBUPROFEN 800 MG TABLET PO SCH (05:53)
--- NOTE | 2016-07-12 06:06 | L&D General Admission ---
General Admit Datetime Report Generated by CPN: 07/12/2016 06:00 INFORMATION Patient Age: 30 (04/26/2016 23:19:QS system process) EDC: 07/03/2016 00:00 (04/26/2016 23:31:Sara Carreon RN) : 2 (04/26/2016 23:31:Sara Carreon RN) Para: 1 (04/26/2016 23:31:Sara Carreon RN) Term: 1 (04/26/2016 23:31:Sara Carreon RN) : 0 (04/26/2016 23:31:Leilani Batista RN) Spontaneous Abortions: 0 (04/26/2016 23:31:Leilani Batista RN) Induced Abortions: 0 (04/26/2016 23:31:Leilani Batista RN) Livin (04/26/2016 23:31:Leilani Batista RN) Cesareans: 0 (04/26/2016 23:31:Leilani Batista RN) VBACs: 0 (04/26/2016 23:31:Leilani Batista RN) Ectopic: 0 (04/26/2016 23:31:Leilani Batista RN) Multiple Births: 0 (04/26/2016 23:31:Leilani Batista RN) Baby, Number in Womb: 1 (07/03/2016 20:24:Radha Ruiz RN) CARE Primary Senior Product Analyst: [facility] (04/26/2016 23:31:Sara Carreon RN) Adequate Care: Yes (04/26/2016 23:31:Sara Carreon RN) Height (in): 71 (07/10/2016 20:51:QS system process) ALLERGIES Medication Allergy: No (04/26/2016 23:31:Sara Carreon RN) Medication Allergies: NA (04/26/2016 23:31:Sara Carreon RN) Latex Allergy: No Latex Allergies (04/26/2016 23:31:Sara Carreon RN) Food Allergies: NA (04/26/2016 23:31:Sara Carreon RN) Environmental Allergies: Bee stings (04/26/2016 23:31:Sara Carreon RN) COMMUNICATION Primary Language: Mauritian (04/26/2016 23:31:Sara Carreon RN) Medical Tx Preferred Language: Mauritian (04/26/2016 23:31:Sara Carreon RN) Communication Barrier(s): None (04/26/2016:31:Sara Carreon RN) DEMOGRAPHICS Address: [address] [place] [id number] (04/26/2016 23:19:QS system process) Zipcode: [phone] (04/26/2016 23:19:QS system process) Home (04/26/2016 23:19:QS system process) Work (04/26/2016 23:19:QS system process) N: [id number] (04/26/2016 23:19:QS system process) Next of Kin Name: DREW MONAE (06/23/2016 12:02:QS system process) Next of Kin (06/23/2016 12:02:QS system process) Next of Kin Relationship: OR (06/23/2016 12:02:QS system process) Date of : 1985 (04/26/2016 23:19:QS system process) Marital Status: Single (04/26/2016 23:19:QS system process) Sex: Female (04/26/2016 23:19:QS system process) Occupation: Other (04/26/2016 23:31:Leilani Batista RN) 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 [id number] (04/26/2016 23:31:Sara Carreon RN) Marijuana: No (04/26/2016 23:31:Sara Carreon RN) Cocaine: No (04/26/2016 23:31:Sara Carreon RN) Other Illicit Drugs: No (04/26/2016 23:31:Sara Carreon RN) VACCINE HISTORY Influenza Vaccine: Yes (04/26/2016 23:31:Sara Carreon RN) Influenza Date: 05/2017 (04/26/2016 23:31:Gia Ng RN) Pneumococcal Vaccine: No (04/26/2016 23:31:Sara Carreon RN) Tetanus Vaccine: Yes (04/26/2016 23:31:Sara Carreon RN) Tetanus Date: 2011 (04/26/2016 23:31:Sara Carreon RN) Tdap Vaccine: Yes (04/26/2016 23:31:Sara Carreon RN) Tdap Date: 2015 (04/26/2016 23:31:Sara Carreon RN) Hepatitis B Vaccine: Uncertain (04/26/2016 23:31:Sara Carreon RN) Physicians And Surgeons: [facility] (04/26/2016 23:31:Sara Carreon RN) Feeding Preference: Formula (04/26/2016 23:31:Sara Carreon RN) Benefit of Breast Feed Discussed: Yes (04/26/2016 23:31:Sara Carreon RN) Circumcision: N/A (04/26/2016 23:31:Sara Carreon RN) Classes Attended: No (04/26/2016 23:31:Sara Carreon RN) Tubal Ligation: Yes (04/26/2016 23:31:Sara Carreon RN) Tubal Authorization Signed: No (04/26/2016 23:31:Sara Carreon RN) Consent: N/A (04/26/2016 23:31:Sara Carreon RN) Consent Signed: N/A (04/26/2016 23:31:Sara Carreon RN) Pain Management Plans: Epidural (04/26/2016 23:31:Sara Carreon RN) Plans for Labor and Delivery: None (04/26/2016 23:31:Sara Carreon RN) Support Person: Drew Monae (04/26/2016 23:31:Sara Carreon RN) Support Person Relationship: Significant Other (04/26/2016 23:31:Sara Carreon RN) Cultural/Spritual Practice: No (04/26/2016 23:31:Sara Carreon RN) Spir/Cult Dietary Needs: No (04/26/2016 23:31:Sara Carreon RN) LIVING SITUATION/DISCHARGE PLAN Living Arrangements: House (04/26/2016 23:31:Sara Carreon RN) Adequate Access to:: Electric; Heat; Refrigeration; Plumbing/Running water; Phone; Transportation (04/26/2016 23:31:Sara Carreon RN) WIC Program: No (04/26/2016 23:31:Leilani Batista RN) Discharge Computer Forwarding System Markup Clerk Person: Drew Monae (04/26/2016 23:31:Sara Carreon RN) Person to Help after Discharge: Drew Monae (04/26/2016 23:31:Sara Carreon RN) Currently Using Commun Resources: Yes (04/26/2016 23:31:Sara Carreon RN) Specify Current Resource Used: EBT (04/26/2016 23:31:Leilani Batista RN) Outside Agency/Director Product: Yes (04/26/2016 23:31:Sara Carreon RN) Car Seat for Discharge: No (04/26/2016 23:31:Sara Carreon RN) Adoption Requested: No (04/26/2016 23:31:Sara Carreon RN) Pt Contact w/infant Post : N/A (04/26/2016 23:31:Sara Carreon RN) LABS Blood Type: A Positive (04/26/2016 23:31:Sara Carreon RN) Antibody Screen: negative (04/26/2016 23:31:Leilani Batista RN) Hemoglobin: 11.3 L (07/11/2016 07:29:QS system process) Hematocrit: 33.3 L (07/11/2016 07:29:QS system process) MCV: 85 (07/11/2016 07:29:QS system process) Group Beta Strep: Positive (04/27/2016 01:05:Leilani Batista RN) Gonorrhea: Negative (04/26/2016 23:31:Leilani Batista RN) Chlamydia: Negative (04/26/2016 23:31:Leilani Batista RN) RPR/VDRL: Nonreactive (04/26/2016 23:31:Sara Carreon RN) HIV Results: negative (04/26/2016 23:31:Leilani Batista RN) Hepatitis B: Negative (04/26/2016 23:31:Leilani Batista RN) Rubella: Immune (04/26/2016 23:31:Sara Carreon RN) OB/PREVIOUS HISTORY Previous Procedures: Ultrasound; NST (04/26/2016 23:31:Sara Carreon RN) Current Procedures: Ultrasound; NST (04/26/2016 23:31:Leilani Batista RN) History of Previous : No (04/26/2016 23:31:Sara Carreon RN) History of Gestational Diabetes: No (04/26/2016 23:31:Sara Carreon RN) History of PIH: No (04/26/2016 23:31:Sara Carreon RN) History of Incompetent Cervix: No (04/26/2016 23:31:Sara Carreon RN) History of Placenta Previa/Abrup: No (04/26/2016 23:31:Sara Carreon RN) History of Macrosomia: No (04/26/2016 23:31:Sara Carreon RN) History of IUGR: No (04/26/2016 23:31:Sara Carreon RN) History of Hemorrhage: No (04/26/2016 23:31:Sara Carreon RN) History of Loss/Stillborn: No (04/26/2016 23:31:Sara Carreon RN) History of : No (04/26/2016 23:31:Sara Carreon RN) History of D (Rh) Sensitization: No (04/26/2016 23:31:Sara Carreon RN) History Recurrent Loss/Stillborn: No (04/26/2016 23:31:Saar Carreon RN) History Depression/PP Depression: No (04/26/2016 23:31:Sara Carreon RN) History of Uterine Anomaly/ECHO: No (04/26/2016 23:31:Sara Carreon RN) History of Infertility: No (04/26/2016 23:31:Sara Carreon RN) History of ART Treatment: No (04/26/2016 23:31:Sara Carreon RN) History of ECHO: No (04/26/2016 23:31:Sara Carreon RN) Comments Obstetrical History: G1: 2005 10 pound 2 ounce male G2: Current (04/26/2016 23:31:Leilani Batista RN) MEDICAL HISTORY Med Hx Diabetes: No (04/26/2016 23:31:Sara Carreon RN) Med Hx Hypertension: No (04/26/2016 23:31:Sara Carreon RN) Med Hx Heart Disease: Yes (04/26/2016 23:31:Sara Carreon RN) Med Hx Autoimmune Disorder: No (04/26/2016 23:31:Sara Carreon RN) Med Hx Kidney Disease/UTI: No (04/26/2016 23:31:Sara Carreon RN) Med Hx Neurologic/Epilepsy: No (04/26/2016 23:31:Sara Carreon RN) Med Hx Psychiatric Disorders: No (04/26/2016 23:31:Sara Carreon RN) Med Hx Hepatitis/Liver Disease: No (04/26/2016 23:31:Sara Carreon RN) Med Hx Varicosities/Phlebitis: No (04/26/2016 23:31:Sara Carreon RN) Med Hx Thyroid Dysfunction: No (04/26/2016 23:31:Sara Carreon RN) Med Hx Trauma/Violence: No (04/26/2016 23:31:Sara Carreon RN) Med Hx Blood Transfusion: No (04/26/2016 23:31:Sara Carreon RN) Med Hx Pulmonary (Asthma,TB): No (04/26/2016 23:31:Sara Carreon RN) Med Hx Breast: No (04/26/2016 23:31:Sara Carreon RN) Med Hx IT NETWORK ADMINISTRATOR Surgery: No (04/26/2016 23:31:Sara Carreon RN) Med Hx Hospitalization/Surgery: No (04/26/2016 23:31:Sara Carreon RN) Med Hx Anesthetic Complications: No (04/26/2016 23:31:Sara Carreon RN) Med Hx Abnormal Pap Smear: No (04/26/2016 23:31:Sara Carreon RN) Other Medical Diseases: No (04/26/2016 23:31:Sara Carreon RN) Med Hx Significant Family Hx: No (04/26/2016 23:31:Sara Carreon RN) Details of Med/Surg 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 (04/26/2016 23:31:Sara Carreon RN) INFECTIOUS HISTORY Inf Hx Gonorrhea: No (04/26/2016 23:31:Sara Carreon RN) Inf Hx Chlamydia: No (04/26/2016 23:31:Sara Carreon RN) Inf Hx Syphilis: No (04/26/2016 23:31:Sara Carreon RN) Inf Hx HIV/AIDS: No (04/26/2016 23:31:Sara Carreon RN) Inf Hx Human Papilloma Virus: No (04/26/2016 23:31:Sara Carreon RN) Inf Hx Pt/Partner Genital Herpes: No (04/26/2016 23:31:Sara Carreon RN) Inf Hx Tuberculosis/Exposure: No (04/26/2016 23:31:Sara Carreon RN) Inf Hx Hepatitis B,C: No (04/26/2016 23:31:Sara Carreon RN) Inf Hx Rash or Viral Illness: No (04/26/2016 23:31:Sara Carreon RN) GENETIC HISTORY Gen Hx Age >=35 at CARLO: No (04/26/2016 23:31:Sara Carreon RN) Gen Hx Thalassemia: No (04/26/2016 23:31:Sara Carreon RN) Gen Hx Congenital Heart Defect: No (04/26/2016 23:31:Sara Carreon RN) Gen Hx Neural Tube Defect: No (04/26/2016 23:31:Sara Carreon RN) Gen Hx Down's Syndrome: No (04/26/2016 23:31:Sara Carreon RN) Gen Hx Tremaine-Sachs: No (04/26/2016 23:31:Sara Carreon RN) Gen Hx Delmar: No (04/26/2016 23:31:Sara Carreon RN) Gen Hx Familial Dysautonomia: No (04/26/2016 23:31:Sara Carreon RN) Gen Hx Sickle Cell Disease/Trait: No (04/26/2016 23:31:Sara Carreon RN) Gen Hx Hemophilia/Blood Disorder: No (04/26/2016 23:31:Sara Carreon RN) Gen Hx Muscular Dystrophy: No (04/26/2016 23:31:Sara Carreon RN) Gen Hx Cystic Fibrosis: No (04/26/2016 23:31:Sara Carreon RN) Gen Hx Huntingtons Chorea: No (04/26/2016 23:31:Sara Carreon RN) Gen Hx Mental Retardation/Autism: No (04/26/2016 23:31:Sara Carreon RN) Gen Hx Tested for Fragile X: No (04/26/2016 23:31:Sara Carreon RN) Gen Hx Other Inher/Chromosomal: No (04/26/2016 23:31:Sara Carreon RN) Gen Hx Maternal Metabolic DO: No (04/26/2016 23:31:Sara Carreon RN) Gen Hx Pt Father or FOB Defect: No (04/26/2016 23:31:Sara Carreon RN) Gen Hx Other Genetic History: No (04/26/2016 23:31:Sara Carreon RN) Gen Hx Drugs/Meds since LMP: Yes (04/26/2016 23:31:Sara Carreon RN) Gen Hx Medications: vitamin tylenol 1000mg for abd pain tylenol (04/26/2016 23:31:Sara Carreon RN)
--- NOTE | 2016-07-12 06:06 | L&D Current Admission ---
Current Admit Datetime Report Generated by CPN: 07/12/2016 06:00 ADMISSION INFORMATION Current Admit Date/Time: 07/10/2016 06:00 (06/23/2016 12:47:Leilani Batista RN) Reason for Admission: Induction of Labor (06/23/2016 12:47:Leilani Batista RN) Chief Complaint: Scheduled Induction of Labor (07/10/2016 07:30:Dorie Wyatt RN) Medications During : Vitamin (06/23/2016 12:47:Leilani Batista RN) EGA per Dates: 41.0 (06/23/2016 12:47:QS system process) Method of Arrival: Ambulatory (06/23/2016 12:47:Leilani Batista RN) Admitted From: Home (06/23/2016 12:47:Leilani Batista RN) Reason for Induction: Postterm (06/23/2016 12:47:Leilani Batista RN) Records Available: Yes (06/23/2016 12:47:Leilani Batista RN) General Admission Information: Reviewed (06/23/2016 12:47:Leilani Batista RN) BELONGINGS/ADVANCED DIRECTIVES Comments Regarding Disposition: see [facility] consent form (06/23/2016 12:47:Leilani Batista RN) Advance Direct for Healthcare: No, and Wants No Information (06/23/2016 12:47:Leilani Batista RN) Durable Power of Construction Project Manager: No (06/23/2016 12:47:Leilani Batista RN) Living Will: No (06/23/2016 12:47:Leilani Batista RN) Organ Donor: No (06/23/2016 12:47:Leilani Batista RN) Pt Rights Information Given: Yes (06/23/2016 12:47:Leilani Batista RN) Pt Understands Pt Rights: Yes (06/23/2016 12:47:Leilani Batista RN) LEARNING ASSESSMENT Knowledge Level: Understands L_D Process (06/23/2016 12:47:Leilani Batista RN) Barriers to Learning: None (06/23/2016 12:47:Leilani Batista RN) Learning Readiness: Motivated (06/23/2016 12:47:Leilani Batista RN) Learns Best By: 1 to 1 Instruction; Reading; Videos; Demonstration (06/23/2016 12:47:Leilani Batista RN) Learning Needs: Labor and Delivery Process; Pain Management; Symptoms to Report; Treatment Plan; Medication; Diagnosis; Nutrition; Equipment; Infant Care; Community Resources (06/23/2016 12:47:Leilani Batista RN) DOMESTIC VIOLANCE SCREENING Dom Viol Threatened/Hurt: No (06/23/2016 12:47:Leilani Batista RN) Hx of Abuse/Neglect past 2yrs: No (06/23/2016 12:47:Leilani Batista RN) Feel Unsafe Going Home: No (06/23/2016 12:47:Leilani Batista RN) Addt'l Observ Indicating Abuse: No (06/23/2016 12:47:Leilani Batista RN) Reason Unable to Complete Screen: N/A, Screen Completed (06/23/2016 12:47:Leilani Batista RN) Considered Personal Harm/Suicide: No (06/23/2016 12:47:Leilani Batista RN) NUTRITIONAL/FUNCTIONAL SCREENING Problem with Appetite >5 Days: No (06/23/2016 12:47:Leilani Batista RN) Chew/Swallow Difficulties: No (06/23/2016 12:47:Leilani Batista RN) Inappropriate Wt Gain/Loss: No (06/23/2016 12:47:Leilani Batista RN) Presence Skin Breakdown/Ulcer: No (06/23/2016 12:47:Leilani Batista RN) Special Diet: No (06/23/2016 12:47:Leilani Batista RN) Pt Requests Beamer Helper Visit: No (06/23/2016 12:47:Leilani Batista RN) Hx of Any of the Following?: N/A (06/23/2016 12:47:Leilani Batista RN) New Diagnosis of: N/A (06/23/2016 12:47:Leilani Batista RN) Requires Assist w/Ambulation: No (06/23/2016 12:47:Leilani Batista RN) Uses Assist Device to Ambulate: No (06/23/2016 12:47:Leilani Batista RN) Pt Requires Help w/ADL's: No (06/23/2016 12:47:Leilani Batista RN)
--- NOTE | 2016-07-12 06:24 | L&D Care Plan ---
LD CARE PLANS Datetime Report Generated by CPJanie: 07/12/2016 06:16 Datetime: 07/10/2016 05:06 State: Risk For (Leilani Batista RN) Related To: Labor and Delivery Process; Treatment and Procedures; Post (Leilani Batista RN) Goal(s): Patients Pain will be Assessed and Managed; Patient will Verbalize Adequate Relief of Pain or the Ability to [place] with Current Pain (Leilani Batista RN) Interventions: Assess Pain Severity on Scale of 0 (None) to 5 (Severe); Assess Type, Location and Intensity of Pain Each Time Client Reports Discomfort and Notify Provider if Unusal Pain Develops; Encourage Proper Breathing and Relaxation Techniques; Offer Alternatives Such as Repositioning, Calm Environment, Massages, Diversional Activities, Ice Pack, Splinting, and Ambulation; Administer Analgesics as Ordered; Assist with Epidural Placement as Appropriate; Evaluate Therapeutic Effectiveness of Medication and Treatments (Leilani Batista RN) Outcome: Patient will Report Absence or Relief of Pain Consistent with Established Pain Goal (Leilani Batista RN) Outcome: Patient will have a Decrease in Signs and Symptoms of Discomfort (Leilani Batista RN) Outcome: Pain will be Controlled During Procedures (Leilani Batista RN) State: Risk For (Leilani Batista RN) Related To: Labor and Delivery Process; Fear of Unknown; Situational Crisis; Medical Interventions; Significant Life Event (Leilani Batista RN) Goal(s): Patient will have Decreased Anxiety and be able to Function at Acceptable Levels (Leilani Batista RN) Interventions: Assess Verbal and Nonverbal Behavioral Indicators of Anxiety; Assist Patient to Identify and Verbalize Symptoms of Anxiety; Identify and Demonstrate Techniques to Control Anxiety; Assist Patient with Coping Mechanisms to Manage Anxiety; Provide Theraputic Touch for the Patient; Explain to Patient, Using a Calm Reassuring Approach and Nonmedical Terms, All Activities, Procedures, and Concerns; Instruct Patient and Family about Post Discharge Care, Limitations, Symptoms to Report and Resources Available (Leilani Batista RN) Outcome: Patient will Identify, Verbalize and Demonstrate Techniques to Control Anxiety (Leilani Batista RN) Outcome: Patient's Posture, Facial Expressions, Gestures and Activity Level will Reflect Decreased Anxiety (Leilani Batista RN) Outcome: Patient will Verbalize a Sense of Control and/or Acceptance of the Situation (Leilani Batista RN) Outcome: Patient will Identify and Utilize Support Person (Leilani Batista RN) State: Risk For (Leilani Batista RN) Related To: Labor and Delivery Process; Treatment and Procedures; Impending Alterations in Family Dynamics; Feeding and Care; Community Resources and Available Support Mechanisms (Leilani Batista RN) Goal(s): Patient will Accurately Verbalize Understanding of Plan of Care and Treatment; Patient and Family will Accurately Verbalize Understanding of the Disease Process (Leilani Batista RN) Interventions: Assess Motivation and Willingness of Patient/Family to Learn; Assess Preferred Learning Mode: One to One Instruction, Reading, Videos, Group Discussion or Demonstration; Assess Barriers to Learning: Pain, Emotional State, Language Barrier, Cognitive Impairment, Visual or Hearing Deficits; Assess Patient and Family Knowledge of Disease Process, Medications and Treatment; Discuss Therapy and/or Treatment Options, Describe Rationale Behind Management, Therapy and Treatment Recommendations; Instruct Patient and Family on Signs and Symptoms to Report; Instruct Patient and Family on Medication Effects and Side Effects; Provide Appropriate and Timely Education Using Multiple Techniques; Provide Patient and Family with Support Group Information and Resources; Give Clear and Thorough Explanations and Demonstrations (Leilani Batista RN) Outcome: Patient and Family will Verbalize Understanding of Condition, Treatment and Signs and Symptoms to Report (Leilani Batista RN) Outcome: Patient will Identify Perceived Learning Needs and Express Motivation to Learn (Leilani Batista RN) Outcome: Patient will Verbalize Understanding of Desired Content, and/or Performs Desired Skill Prior to Discharge (Leilani Batista RN) State: Risk For (Leilani Batista RN) Related To: Surgical Procedures; Prolonged Labor or Induction; Premature/Prolonged Rupture of Membranes; Invasive Procedures; Altered Tissue Integrity (Leilani Batista RN) Goal(s): The Patient will be Free of Infection, Vital Signs Stable and Lab Work within Normal Parameters (Leilani Batista RN) Interventions: Instruct and Reinforce Proper Handwashing, Hygiene, and Care Techniques to Patient and Family; Monitor Vital Signs; Monitor Patient for the Following Signs of Infection: Fever, Abdominal Tenderness, Unusual Discharge; Monitor Aminiotic Fluid, Urine and Lochia for Color and Odor; Observe Wounds, Incisions and Invasive Line Sites for Redness, Drainage and Edema; Assess IV Sites per Hospital Policy; Monitor Lab and Test Results and Notify Provider of Abnormal Findings; Assess Nutritional Status and Promote Good Nutrition (Leilani Batista RN) Outcome: Patient will Remain Free of Infection (Leilani Batista RN) Outcome: Infection will be Recognized Early to Allow for Prompt Treatment (Leilani Batista RN) Outcome: Patient will have Vital Signs Within Expected Range (Leilani Batista RN) State: Risk For (Leilani Batista RN) Related To: Prolonged Labor or Induction; Anesthesia; Altered Renal Function (Leilani Batista RN) Goal(s): Patient will Achieve and Maintain a Balanced Fluid Volume Status; Hemodynamically Stable (Leilani Batista RN) Interventions: Monitor Vital Signs; Auscultate Breath Sounds; Monitor Patient for Skin Turgor, Mucous Membranes, Dry Skin, Weakness, Headaches and Confusion; Provide Oral Fluids as Ordered; Initiate and Maintain Intravenous Fluids as Ordered; Monitor Intake and Output as Indicated Per Patient Status; Accurately Measure Blood Loss; Monitor Lab and Test Results as Obtained and Notify Provider of Abnormal Findings; Monitor Patient's Weight (Leilani Batista RN) Outcome: Patient will have Clear Lung Sounds (Leilani Batista RN) Outcome: Patient will have Vital Signs within Expected Range (Leilani Batista RN) Outcome: Urine Output will be within Expected Range (Leilani Batista RN) Outcome: Patient will have Minimal Generalized or Upper Extremity Edema (Leilani Batista RN)
[2016-07-12 08:14] VITALS: BP 110/73
[2016-07-12] MEDS: PRENATAL VITAMIN W-O CA NO5/FE FUMARATE/FA CAPSULE PO SCH (09:22)
[2016-07-12] MEDS: DOCUSATE SODIUM 100 MG CAPSULE PO SCH (09:22)
[2016-07-12] MEDS: SENNOSIDES/DOCUSATE 8.6-50 MG 1 EACH TABLET PO SCH (09:22)
[2016-07-12] MEDS: FERROUS SULFATE 325 MG TABLET PO SCH (09:22)
--- NOTE | 2016-07-12 09:34 | PDOC DISCHARGE SUMMARY ---
Discharge Summary-OB Discharge Date: 07/12/16 - Final Diagnosis (1) Vaginal delivery Is this a current diagnosis for this admission?: Yes (2) Poor dentition Is this a current diagnosis for this admission?: Yes (3) Pulmonary stenosis Is this a current diagnosis for this admission?: Yes - Discharge Medication Home Medications: Pnv No.122/Iron/Folic Acid [ Multi Tablet] 1 tab PO QAM 04/26/16 Docusate Sodium [Colace 100 mg Capsule] 100 mg PO BID #60 capsule 07/12/16 Ibuprofen [Motrin 800 mg Tablet] 800 mg PO Q8 #60 tablet 07/12/16 Gestational Age: 41 Reason(s) for Admission: Induction of Labor, Group B Strep Positive Procedures: NST Intrapartum Procedure(s): Spontaneous Vaginal Delivery Complication(s): Laceration-Perineal Laceration-Degree: 2nd - Dresser Data Baby 1 Female at 1 minute: 9 at 5 minutes: 9 Weight: 4275 kg Home with Mother: Yes Complications: No - Diagnosis Test Laboratory: Temp Pulse Resp BP Pulse Ox 97.7 F 72 16 110/73 99 07/12/16 07:17 07/12/16 07:17 07/12/16 07:17 07/12/16 07:17 07/12/16 07:17 07/10/16 07/10/16 07/11/16 06:54 11:20 07:29 RBC 4.10 3.93 Hgb 12.0 11.3 L Hct 34.8 L 33.3 L Urine Opiates Screen NEGATIVE - Discharge information/Instructions Discharge Activity: No Lifting Over 10 Pounds, No Lifting/Push/Pulling, Pelvic Rest, No tub bath Discharge Diet: Regular Disposition: HOME, SELF-CARE Follow [facility] with: [facility] in: 4, Weeks
--- NOTE | 2016-07-13 06:05 | L&D General Admission ---
General Admit Datetime Report Generated by CPN: 07/13/2016 06:00 INFORMATION Patient Age: 30 (04/26/2016 23:19:QS system process) EDC: 07/03/2016 00:00 (04/26/2016 23:31:Sara Carreon RN) : 2 (04/26/2016 23:31:Sara Carreon RN) Para: 1 (04/26/2016 23:31:Sara Carreon RN) Term: 1 (04/26/2016 23:31:Sara Carreon RN) : 0 (04/26/2016 23:31:Leilani Batista RN) Spontaneous Abortions: 0 (04/26/2016 23:31:Leilani Batista RN) Induced Abortions: 0 (04/26/2016 23:31:Leilani Batista RN) Livin (04/26/2016 23:31:Leilani Batista RN) Cesareans: 0 (04/26/2016 23:31:Leilani Batista RN) VBACs: 0 (04/26/2016 23:31:Leilani Batista RN) Ectopic: 0 (04/26/2016 23:31:Leilani Batista RN) Multiple Births: 0 (04/26/2016 23:31:Leilani Batista RN) Baby, Number in Womb: 1 (07/03/2016 20:24:Radha Ruiz RN) CARE Primary Animal Nurse: [facility] (04/26/2016 23:31:Sara Carreon RN) Adequate Care: Yes (04/26/2016 23:31:Sara Carreon RN) Height (in): 71 (07/12/2016 09:34:QS system process) ALLERGIES Medication Allergy: No (04/26/2016 23:31:Sara Carreon RN) Medication Allergies: NA (04/26/2016 23:31:Sara Carreon RN) Latex Allergy: No Latex Allergies (04/26/2016 23:31:Sara Carreon RN) Food Allergies: NA (04/26/2016 23:31:Sara Carreon RN) Environmental Allergies: Bee stings (04/26/2016 23:31:Sara Carreon RN) COMMUNICATION Primary Language: Cypriot (04/26/2016 23:31:Sara Carreon RN) Medical Tx Preferred Language: Cypriot (04/26/2016 23:31:Sara Carreon RN) Communication Barrier(s): None (04/26/2016:31:Sara Carreon RN) DEMOGRAPHICS Address: [address] [place] [id number] (04/26/2016 23:19:QS system process) Zipcode: [phone] (04/26/2016 23:19:QS system process) Home (04/26/2016 23:19:QS system process) Work (04/26/2016 23:19:QS system process) N: [phone] (04/26/2016 23:19:QS system process) Next of Kin Name: DREW MONAE (06/23/2016 12:02:QS system process) Next of Kin (06/23/2016 12:02:QS system process) Next of Kin Relationship: OR (06/23/2016 12:02:QS system process) Date of : 1985 (04/26/2016 23:19:QS system process) Marital Status: Single (04/26/2016 23:19:QS system process) Sex: Female (04/26/2016 23:19:QS system process) Occupation: Other (04/26/2016 23:31:Leilani Batista RN) 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 [id number] (04/26/2016 23:31:Sara Carreon RN) Marijuana: No (04/26/2016 23:31:Sara Carreon RN) Cocaine: No (04/26/2016 23:31:Sara Carreon RN) Other Illicit Drugs: No (04/26/2016 23:31:Sara Carreon RN) VACCINE HISTORY Influenza Vaccine: Yes (04/26/2016 23:31:Sara Carreon RN) Influenza Date: 05/2017 (04/26/2016 23:31:Gia Ng RN) Pneumococcal Vaccine: No (04/26/2016 23:31:Sara Carreon RN) Tetanus Vaccine: Yes (04/26/2016 23:31:Sara Carreon RN) Tetanus Date: 2011 (04/26/2016 23:31:Sara Carreon RN) Tdap Vaccine: Yes (04/26/2016 23:31:Sara Carreon RN) Tdap Date: 2015 (04/26/2016 23:31:Sara Carreon RN) Hepatitis B Vaccine: Uncertain (04/26/2016 23:31:Sara Carreon RN) 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: [facility] (04/26/2016 23:31:Sara Carreon RN) Feeding Preference: Formula (04/26/2016 23:31:Sara Carreon RN) Benefit of Breast Feed Discussed: Yes (04/26/2016 23:31:Sara Carreon RN) Circumcision: N/A (04/26/2016 23:31:Sara Carreon RN) Classes Attended: No (04/26/2016 23:31:Sara Carreon RN) Tubal Ligation: Yes (04/26/2016 23:31:Sara Carreon RN) Tubal Authorization Signed: No (04/26/2016 23:31:Sara Carreon RN) Consent: N/A (04/26/2016 23:31:Sara Carreon RN) Consent Signed: N/A (04/26/2016 23:31:Sara Carreon RN) Pain Management Plans: Epidural (04/26/2016 23:31:Sara Carreon RN) Plans for Labor and Delivery: None (04/26/2016 23:31:Sara Carreon RN) Support Person: Drew Monae (04/26/2016 23:31:Sara Carreon RN) Support Person Relationship: Significant Other (04/26/2016 23:31:Sara Carreon RN) Cultural/Spritual Practice: No (04/26/2016 23:31:Sara Carreon RN) Spir/Cult Dietary Needs: No (04/26/2016 23:31:Sara Carreon RN) LIVING SITUATION/DISCHARGE PLAN Living Arrangements: House (04/26/2016 23:31:Sara Carreon RN) Adequate Access to:: Electric; Heat; Refrigeration; Plumbing/Running water; Phone; Transportation (04/26/2016 23:31:Sara Carreon RN) WIC Program: No (04/26/2016 23:31:Leilani Batista RN) Discharge Histology Teacher Person: Drew Monae (04/26/2016 23:31:Sara Carreon RN) Person to Help after Discharge: Drew Monae (04/26/2016 23:31:Sara Carreon RN) Currently Using Commun Resources: Yes (04/26/2016 23:31:Sara Carreon RN) Specify Current Resource Used: EBT (04/26/2016 23:31:Leilani Batista RN) Outside Agency/Technical Editor: Yes (04/26/2016 23:31:Sara Carreon RN) Car Seat for Discharge: No (04/26/2016 23:31:Sara Carreon RN) Adoption Requested: No (04/26/2016 23:31:Sara Carreon RN) Pt Contact w/infant Post : N/A (04/26/2016 23:31:Sara Carreon RN) LABS Blood Type: A Positive (04/26/2016 23:31:Sara Carreon RN) Antibody Screen: negative (04/26/2016 23:31:Leilani Batista RN) Hemoglobin: 11.3 L (07/11/2016 07:29:QS system process) Hematocrit: 33.3 L (07/11/2016 07:29:QS system process) MCV: 85 (07/11/2016 07:29:QS system process) Group Beta Strep: Positive (04/27/2016 01:05:Leilani Batista RN) Gonorrhea: Negative (04/26/2016 23:31:Leilani Batista RN) Chlamydia: Negative (04/26/2016 23:31:Leilani Batista RN) RPR/VDRL: Nonreactive (04/26/2016 23:31:Sara Carreon RN) HIV Results: negative (04/26/2016 23:31:Leilani Batista RN) Hepatitis B: Negative (04/26/2016 23:31:Leilani Batista RN) Rubella: Immune (04/26/2016 23:31:Sara Carreon RN) OB/PREVIOUS HISTORY Previous Procedures: Ultrasound; NST (04/26/2016 23:31:Sara Carreon RN) Current Procedures: Ultrasound; NST (04/26/2016 23:31:Leilani Batista RN) History of Previous : No (04/26/2016 23:31:Sara Carreon RN) History of Gestational Diabetes: No (04/26/2016 23:31:Sara Carreon RN) History of PIH: No (04/26/2016 23:31:Sara Carreon RN) History of Incompetent Cervix: No (04/26/2016 23:31:Sara Carreon RN) History of Placenta Previa/Abrup: No (04/26/2016 23:31:Sara Carreon RN) History of Macrosomia: No (04/26/2016 23:31:Sara Carreon RN) History of IUGR: No (04/26/2016 23:31:Sara Carreon RN) History of Hemorrhage: No (04/26/2016 23:31:Sara Carreon RN) History of Loss/Stillborn: No (04/26/2016 23:31:Sara Carreon RN) History of : No (04/26/2016 23:31:Sara Carreon RN) History of D (Rh) Sensitization: No (04/26/2016 23:31:Sara Carreon RN) History Recurrent Loss/Stillborn: No (04/26/2016 23:31:Sara Carreon RN) History Depression/PP Depression: No (04/26/2016 23:31:Sara Carreon RN) History of Uterine Anomaly/ECHO: No (04/26/2016 23:31:Sara Carreon RN) History of Infertility: No (04/26/2016 23:31:Sara Carreon RN) History of ART Treatment: No (04/26/2016 23:31:Sara Carreon RN) History of ECHO: No (04/26/2016 23:31:Sara Carreon RN) Comments Obstetrical History: G1: 2005 10 pound 2 ounce male G2: Current (04/26/2016 23:31:Leilani Batista RN) MEDICAL HISTORY Med Hx Diabetes: No (04/26/2016 23:31:Sara Carreon RN) Med Hx Hypertension: No (04/26/2016 23:31:Sara Carreon RN) Med Hx Heart Disease: Yes (04/26/2016 23:31:Sara Carreon RN) Med Hx Autoimmune Disorder: No (04/26/2016 23:31:Sara Carreon RN) Med Hx Kidney Disease/UTI: No (04/26/2016 23:31:Sara Carreon RN) Med Hx Neurologic/Epilepsy: No (04/26/2016 23:31:Sara Carreon RN) Med Hx Psychiatric Disorders: No (04/26/2016 23:31:Sara Carreon RN) Med Hx Hepatitis/Liver Disease: No (04/26/2016 23:31:Sara Carreon RN) Med Hx Varicosities/Phlebitis: No (04/26/2016 23:31:Sara Carreon RN) Med Hx Thyroid Dysfunction: No (04/26/2016 23:31:Sara Carreon RN) Med Hx Trauma/Violence: No (04/26/2016 23:31:Sara Carreon RN) Med Hx Blood Transfusion: No (04/26/2016 23:31:Sara Carreon RN) Med Hx Pulmonary (Asthma,TB): No (04/26/2016 23:31:Sara Carreon RN) Med Hx Breast: No (04/26/2016 23:31:Sara Carreon RN) Med Hx ECG TECHNICIAN Surgery: No (04/26/2016 23:31:Sara Carreon RN) Med Hx Hospitalization/Surgery: No (04/26/2016 23:31:Sara Carreon RN) Med Hx Anesthetic Complications: No (04/26/2016 23:31:Sara Carreon RN) Med Hx Abnormal Pap Smear: No (04/26/2016 23:31:Sara Carreon RN) Other Medical Diseases: No (04/26/2016 23:31:Sara Carreon RN) Med Hx Significant Family Hx: No (04/26/2016 23:31:Sara Carreon RN) Details of Med/Surg 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 (04/26/2016 23:31:Sara Carreon RN) INFECTIOUS HISTORY Inf Hx Gonorrhea: No (04/26/2016 23:31:Sara Carreon RN) Inf Hx Chlamydia: No (04/26/2016 23:31:Sara Carreon RN) Inf Hx Syphilis: No (04/26/2016 23:31:Sara Carreon RN) Inf Hx HIV/AIDS: No (04/26/2016 23:31:Sara Carreon RN) Inf Hx Human Papilloma Virus: No (04/26/2016 23:31:Sara Carreon RN) Inf Hx Pt/Partner Genital Herpes: No (04/26/2016 23:31:Sara Carreon RN) Inf Hx Tuberculosis/Exposure: No (04/26/2016 23:31:Sara Carreon RN) Inf Hx Hepatitis B,C: No (04/26/2016 23:31:Sara Carreon RN) Inf Hx Rash or Viral Illness: No (04/26/2016 23:31:Sara Carreon RN) GENETIC HISTORY Gen Hx Age >=35 at CARLO: No (04/26/2016 23:31:Sara Carreon RN) Gen Hx Thalassemia: No (04/26/2016 23:31:Sara Carreon RN) Gen Hx Congenital Heart Defect: No (04/26/2016 23:31:Sara Carreon RN) Gen Hx Neural Tube Defect: No (04/26/2016 23:31:Sara Carreon RN) Gen Hx Down's Syndrome: No (04/26/2016 23:31:Sara Carreon RN) Gen Hx Tremaine-Sachs: No (04/26/2016 23:31:Sara Carreon RN) Gen Hx Delmar: No (04/26/2016 23:31:Sara Carreon RN) Gen Hx Familial Dysautonomia: No (04/26/2016 23:31:aSra Carreon RN) Gen Hx Sickle Cell Disease/Trait: No (04/26/2016 23:31:Sara Carreon RN) Gen Hx Hemophilia/Blood Disorder: No (04/26/2016 23:31:Sara Carreon RN) Gen Hx Muscular Dystrophy: No (04/26/2016 23:31:Sara Carreon RN) Gen Hx Cystic Fibrosis: No (04/26/2016 23:31:Sara Carreon RN) Gen Hx Huntingtons Chorea: No (04/26/2016 23:31:Sara Carreon RN) Gen Hx Mental Retardation/Autism: No (04/26/2016 23:31:Sara Carreon RN) Gen Hx Tested for Fragile X: No (04/26/2016 23:31:Sara Carreon RN) Gen Hx Other Inher/Chromosomal: No (04/26/2016 23:31:Sara Carreon RN) Gen Hx Maternal Metabolic DO: No (04/26/2016 23:31:Sara Carreon RN) Gen Hx Pt Father or FOB Defect: No (04/26/2016 23:31:Sara Carreon RN) Gen Hx Other Genetic History: No (04/26/2016 23:31:Sara Carreon RN) Gen Hx Drugs/Meds since LMP: Yes (04/26/2016 23:31:Sara Carreon RN) Gen Hx Medications: vitamin tylenol 1000mg for abd pain tylenol (04/26/2016 23:31:Sara Carreon RN)
--- NOTE | 2016-07-13 06:05 | L&D Current Admission ---
Current Admit Datetime Report Generated by CPN: 07/13/2016 06:00 ADMISSION INFORMATION Current Admit Date/Time: 07/10/2016 06:00 (06/23/2016 12:47:Leilani Batista RN) Reason for Admission: Induction of Labor (06/23/2016 12:47:Leilani Batista RN) Chief Complaint: Scheduled Induction of Labor (07/10/2016 07:30:Dorie Wyatt RN) Medications During : Vitamin (06/23/2016 12:47:Leilani Batista RN) EGA per Dates: 41.0 (06/23/2016 12:47:QS system process) Method of Arrival: Ambulatory (06/23/2016 12:47:Leilani Batista RN) Admitted From: Home (06/23/2016 12:47:Leilani Batista RN) Reason for Induction: Postterm (06/23/2016 12:47:Leilani Batista RN) Records Available: Yes (06/23/2016 12:47:Leilani Batista RN) General Admission Information: Reviewed (06/23/2016 12:47:Leilani Batista RN) BELONGINGS/ADVANCED DIRECTIVES Comments Regarding Disposition: see [facility] consent form (06/23/2016 12:47:Leilani Batista RN) Advance Direct for Healthcare: No, and Wants No Information (06/23/2016 12:47:Leilani Batista RN) Durable Power of Halal Meat Packer: No (06/23/2016 12:47:Leialni Batista RN) Living Will: No (06/23/2016 12:47:Leilani Batista RN) Organ Donor: No (06/23/2016 12:47:Leilani Batista RN) Pt Rights Information Given: Yes (06/23/2016 12:47:Leilani Batista RN) Pt Understands Pt Rights: Yes (06/23/2016 12:47:Leilani Batista RN) LEARNING ASSESSMENT Knowledge Level: Understands L_D Process (06/23/2016 12:47:Leilani Batista RN) Barriers to Learning: None (06/23/2016 12:47:Leilani Batista RN) Learning Readiness: Motivated (06/23/2016 12:47:Leilani Batista RN) Learns Best By: 1 to 1 Instruction; Reading; Videos; Demonstration (06/23/2016 12:47:Leilani Batista RN) Learning Needs: Labor and Delivery Process; Pain Management; Symptoms to Report; Treatment Plan; Medication; Diagnosis; Nutrition; Equipment; Infant Care; Community Resources (06/23/2016 12:47:Leilani Batista RN) DOMESTIC VIOLANCE SCREENING Dom Viol Threatened/Hurt: No (06/23/2016 12:47:Leilani Batista RN) Hx of Abuse/Neglect past 2yrs: No (06/23/2016 12:47:Leilani Batista RN) Feel Unsafe Going Home: No (06/23/2016 12:47:Leilnai Batista RN) Addt'l Observ Indicating Abuse: No (06/23/2016 12:47:Leilani Batista RN) Reason Unable to Complete Screen: N/A, Screen Completed (06/23/2016 12:47:Leilani Batista RN) Considered Personal Harm/Suicide: No (06/23/2016 12:47:Leilani Batista RN) NUTRITIONAL/FUNCTIONAL SCREENING Problem with Appetite >5 Days: No (06/23/2016 12:47:Leilani Batista RN) Chew/Swallow Difficulties: No (06/23/2016 12:47:Leilani Batista RN) Inappropriate Wt Gain/Loss: No (06/23/2016 12:47:Leilani Batista RN) Presence Skin Breakdown/Ulcer: No (06/23/2016 12:47:Leilani Batista RN) Special Diet: No (06/23/2016 12:47:Leilani Batista RN) Pt Requests Farmworker Dairy Visit: No (06/23/2016 12:47:Leilani Batista RN) Hx of Any of the Following?: N/A (06/23/2016 12:47:Leilani Batista RN) New Diagnosis of: N/A (06/23/2016 12:47:Leilani Batista RN) Requires Assist w/Ambulation: No (06/23/2016 12:47:Leilani Batista RN) Uses Assist Device to Ambulate: No (06/23/2016 12:47:Leilani Batista RN) Pt Requires Help w/ADL's: No (06/23/2016 12:47:Leilani Batista RN)
--- NOTE | 2016-07-14 06:05 | L&D Current Admission ---
Current Admit Datetime Report Generated by CPN: 07/14/2016 06:00 ADMISSION INFORMATION Current Admit Date/Time: 07/10/2016 06:00 (06/23/2016 12:47:Leilani Batista RN) Reason for Admission: Induction of Labor (06/23/2016 12:47:Leilani Batista RN) Chief Complaint: Scheduled Induction of Labor (07/10/2016 07:30:Dorie Wyatt RN) Medications During : Vitamin (06/23/2016 12:47:Leilani Batista RN) EGA per Dates: 41.0 (06/23/2016 12:47:QS system process) Method of Arrival: Ambulatory (06/23/2016 12:47:Leilani Batista RN) Admitted From: Home (06/23/2016 12:47:Leilani Batista RN) Reason for Induction: Postterm (06/23/2016 12:47:Leilani Batista RN) Records Available: Yes (06/23/2016 12:47:Leilani Batista RN) General Admission Information: Reviewed (06/23/2016 12:47:Leilani Batista RN) BELONGINGS/ADVANCED DIRECTIVES Comments Regarding Disposition: see [facility] consent form (06/23/2016 12:47:Leilani Batista RN) Advance Direct for Healthcare: No, and Wants No Information (06/23/2016 12:47:Leilani Batista RN) Durable Power of Online Media Director: No (06/23/2016 12:47:Leilani Batista RN) Living Will: No (06/23/2016 12:47:Leilani Batista RN) Organ Donor: No (06/23/2016 12:47:Leilani Batista RN) Pt Rights Information Given: Yes (06/23/2016 12:47:Leilani Batista RN) Pt Understands Pt Rights: Yes (06/23/2016 12:47:Leilani Batista RN) LEARNING ASSESSMENT Knowledge Level: Understands L_D Process (06/23/2016 12:47:Leilani Batista RN) Barriers to Learning: None (06/23/2016 12:47:Leilani Batista RN) Learning Readiness: Motivated (06/23/2016 12:47:Leilani Batista RN) Learns Best By: 1 to 1 Instruction; Reading; Videos; Demonstration (06/23/2016 12:47:Leilani Batista RN) Learning Needs: Labor and Delivery Process; Pain Management; Symptoms to Report; Treatment Plan; Medication; Diagnosis; Nutrition; Equipment; Infant Care; Community Resources (06/23/2016 12:47:Leilani Batista RN) DOMESTIC VIOLANCE SCREENING Dom Viol Threatened/Hurt: No (06/23/2016 12:47:Leilani Batista RN) Hx of Abuse/Neglect past 2yrs: No (06/23/2016 12:47:Leilani Batista RN) Feel Unsafe Going Home: No (06/23/2016 12:47:Leilani Batista RN) Addt'l Observ Indicating Abuse: No (06/23/2016 12:47:Leilani Batista RN) Reason Unable to Complete Screen: N/A, Screen Completed (06/23/2016 12:47:Leilani Batista RN) Considered Personal Harm/Suicide: No (06/23/2016 12:47:Leilani Batista RN) NUTRITIONAL/FUNCTIONAL SCREENING Problem with Appetite >5 Days: No (06/23/2016 12:47:Leilani Batista RN) Chew/Swallow Difficulties: No (06/23/2016 12:47:Leilani Batista RN) Inappropriate Wt Gain/Loss: No (06/23/2016 12:47:Leilani Batista RN) Presence Skin Breakdown/Ulcer: No (06/23/2016 12:47:Leilani Batista RN) Special Diet: No (06/23/2016 12:47:Leilani Batista RN) Pt Requests Control Area Operator Visit: No (06/23/2016 12:47:Leilani Batista RN) Hx of Any of the Following?: N/A (06/23/2016 12:47:Leilani Batista RN) New Diagnosis of: N/A (06/23/2016 12:47:Leilani Batista RN) Requires Assist w/Ambulation: No (06/23/2016 12:47:Leilani Batista RN) Uses Assist Device to Ambulate: No (06/23/2016 12:47:Leilani Batista RN) Pt Requires Help w/ADL's: No (06/23/2016 12:47:Leilani Batista RN)
--- NOTE | 2016-07-14 06:05 | L&D General Admission ---
General Admit Datetime Report Generated by CPN: 07/14/2016 06:00 INFORMATION Patient Age: 30 (04/26/2016 23:19:QS system process) EDC: 07/03/2016 00:00 (04/26/2016 23:31:Sara Carreon RN) : 2 (04/26/2016 23:31:Sara Carreon RN) Para: 1 (04/26/2016 23:31:Sara Carreon RN) Term: 1 (04/26/2016 23:31:Sara Carreon RN) : 0 (04/26/2016 23:31:Leilani Batista RN) Spontaneous Abortions: 0 (04/26/2016 23:31:Leilani Batista RN) Induced Abortions: 0 (04/26/2016 23:31:Leilani Batista RN) Livin (04/26/2016 23:31:Leilani Batista RN) Cesareans: 0 (04/26/2016 23:31:Leilani Batista RN) VBACs: 0 (04/26/2016 23:31:Leilani Batista RN) Ectopic: 0 (04/26/2016 23:31:Leilani Batista RN) Multiple Births: 0 (04/26/2016 23:31:Leilani Batista RN) Baby, Number in Womb: 1 (07/03/2016 20:24:Radha Ruiz RN) CARE Primary Stock Broker: [facility] (04/26/2016 23:31:Sara Carreon RN) Adequate Care: Yes (04/26/2016 23:31:Sara Carreon RN) Height (in): 71 (07/12/2016 09:34:QS system process) ALLERGIES Medication Allergy: No (04/26/2016 23:31:Sara Carreon RN) Medication Allergies: NA (04/26/2016 23:31:Sara Carreon RN) Latex Allergy: No Latex Allergies (04/26/2016 23:31:Sara Carreon RN) Food Allergies: NA (04/26/2016 23:31:Sara Carreon RN) Environmental Allergies: Bee stings (04/26/2016 23:31:Sara Carreon RN) COMMUNICATION Primary Language: Brazilian (04/26/2016 23:31:Sara Carreon RN) Medical Tx Preferred Language: Brazilian (04/26/2016 23:31:Sara Carreon RN) Communication Barrier(s): None (04/26/2016:31:Sara Carreon RN) DEMOGRAPHICS Address: [address] [place] [phone] (04/26/2016 23:19:QS system process) Zipcode: [phone] (04/26/2016 23:19:QS system process) Home (04/26/2016 23:19:QS system process) Work (04/26/2016 23:19:QS system process) N: [id number] (04/26/2016 23:19:QS system process) Next of Kin Name: DREW MONAE (06/23/2016 12:02:QS system process) Next of Kin (06/23/2016 12:02:QS system process) Next of Kin Relationship: OR (06/23/2016 12:02:QS system process) Date of : 1985 (04/26/2016 23:19:QS system process) Marital Status: Single (04/26/2016 23:19:QS system process) Sex: Female (04/26/2016 23:19:QS system process) Occupation: Other (04/26/2016 23:31:Leilani Batista RN) 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 [id number] (04/26/2016 23:31:Sara Carreon RN) Marijuana: No (04/26/2016 23:31:Sara Carreon RN) Cocaine: No (04/26/2016 23:31:Sara Carreon RN) Other Illicit Drugs: No (04/26/2016 23:31:Sara Carreon RN) VACCINE HISTORY Influenza Vaccine: Yes (04/26/2016 23:31:Sara Carreon RN) Influenza Date: 05/2017 (04/26/2016 23:31:Gia Ng RN) Pneumococcal Vaccine: No (04/26/2016 23:31:Sara Carreon RN) Tetanus Vaccine: Yes (04/26/2016 23:31:Sara Carreon RN) Tetanus Date: 2011 (04/26/2016 23:31:Sara Carreon RN) Tdap Vaccine: Yes (04/26/2016 23:31:Sara Carreon RN) Tdap Date: 2015 (04/26/2016 23:31:Sara Carreon RN) Hepatitis B Vaccine: Uncertain (04/26/2016 23:31:Sara Carreon RN) Stars Analytical Lead: [facility] (04/26/2016 23:31:Sara Carreon RN) Feeding Preference: Formula (04/26/2016 23:31:Sara Carreon RN) Benefit of Breast Feed Discussed: Yes (04/26/2016 23:31:Sara Carreon RN) Circumcision: N/A (04/26/2016 23:31:Sara Carreon RN) Classes Attended: No (04/26/2016 23:31:Sara Carreon RN) Tubal Ligation: Yes (04/26/2016 23:31:Sara Carreon RN) Tubal Authorization Signed: No (04/26/2016 23:31:Sara Carreon RN) Consent: N/A (04/26/2016 23:31:Sara Carreon RN) Consent Signed: N/A (04/26/2016 23:31:Sara Carreon RN) Pain Management Plans: Epidural (04/26/2016 23:31:Sara Carreon RN) Plans for Labor and Delivery: None (04/26/2016 23:31:Sara Carreon RN) Support Person: Drew Monae (04/26/2016 23:31:Sara Carreon RN) Support Person Relationship: Significant Other (04/26/2016 23:31:Sara Carreon RN) Cultural/Spritual Practice: No (04/26/2016 23:31:Sara Carreon RN) Spir/Cult Dietary Needs: No (04/26/2016 23:31:Sara Carreon RN) LIVING SITUATION/DISCHARGE PLAN Living Arrangements: House (04/26/2016 23:31:Sara Carreon RN) Adequate Access to:: Electric; Heat; Refrigeration; Plumbing/Running water; Phone; Transportation (04/26/2016 23:31:Sara Carreon RN) WIC Program: No (04/26/2016 23:31:Leilani Batista RN) Discharge Oliver Filter Operator Person: Drew Monae (04/26/2016 23:31:Sara Carreon RN) Person to Help after Discharge: Drew Monae (04/26/2016 23:31:Sara Carreon RN) Currently Using Commun Resources: Yes (04/26/2016 23:31:Sara Carreon RN) Specify Current Resource Used: EBT (04/26/2016 23:31:Leilain Batista RN) Outside Agency/Business Management Consultant: Yes (04/26/2016 23:31:Sara Carreon RN) Car Seat for Discharge: No (04/26/2016 23:31:Sara Carreon RN) Adoption Requested: No (04/26/2016 23:31:Sara Carreon RN) Pt Contact w/infant Post : N/A (04/26/2016 23:31:Sara Carreon RN) LABS Blood Type: A Positive (04/26/2016 23:31:Sara Carreon RN) Antibody Screen: negative (04/26/2016 23:31:Leilani Batista RN) Hemoglobin: 11.3 L (07/11/2016 07:29:QS system process) Hematocrit: 33.3 L (07/11/2016 07:29:QS system process) MCV: 85 (07/11/2016 07:29:QS system process) Group Beta Strep: Positive (04/27/2016 01:05:Leilani Batista RN) Gonorrhea: Negative (04/26/2016 23:31:Leilani Batista RN) Chlamydia: Negative (04/26/2016 23:31:Leilani Batista RN) RPR/VDRL: Nonreactive (04/26/2016 23:31:Sara Carreon RN) HIV Results: negative (04/26/2016 23:31:Leilani Batista RN) Hepatitis B: Negative (04/26/2016 23:31:Leilani Batista RN) Rubella: Immune (04/26/2016 23:31:Sara Carreon RN) OB/PREVIOUS HISTORY Previous Procedures: Ultrasound; NST (04/26/2016 23:31:Sara Carreon RN) Current Procedures: Ultrasound; NST (04/26/2016 23:31:Leilani Batista RN) History of Previous : No (04/26/2016 23:31:Sara Carreon RN) History of Gestational Diabetes: No (04/26/2016 23:31:Sara Carreon RN) History of PIH: No (04/26/2016 23:31:Sara Carreon RN) History of Incompetent Cervix: No (04/26/2016 23:31:Sara Carreon RN) History of Placenta Previa/Abrup: No (04/26/2016 23:31:Sara Carreon RN) History of Macrosomia: No (04/26/2016 23:31:Sara Carreon RN) History of IUGR: No (04/26/2016 23:31:Sara Carreon RN) History of Hemorrhage: No (04/26/2016 23:31:Sara Carreon RN) History of Loss/Stillborn: No (04/26/2016 23:31:Sara Carreon RN) History of : No (04/26/2016 23:31:Sara Carreon RN) History of D (Rh) Sensitization: No (04/26/2016 23:31:Sara Carreon RN) History Recurrent Loss/Stillborn: No (04/26/2016 23:31:Sara Carreon RN) History Depression/PP Depression: No (04/26/2016 23:31:Sara Carreon RN) History of Uterine Anomaly/ECHO: No (04/26/2016 23:31:Sara Carreon RN) History of Infertility: No (04/26/2016 23:31:Sara Carreon RN) History of ART Treatment: No (04/26/2016 23:31:Sara Carreon RN) History of ECHO: No (04/26/2016 23:31:Sara Carreon RN) Comments Obstetrical History: G1: 2005 10 pound 2 ounce male G2: Current (04/26/2016 23:31:Leilani Batista RN) MEDICAL HISTORY Med Hx Diabetes: No (04/26/2016 23:31:Sara Carreon RN) Med Hx Hypertension: No (04/26/2016 23:31:Sara Carreon RN) Med Hx Heart Disease: Yes (04/26/2016 23:31:Sara Carreon RN) Med Hx Autoimmune Disorder: No (04/26/2016 23:31:Sara Carreon RN) Med Hx Kidney Disease/UTI: No (04/26/2016 23:31:Sara Carreon RN) Med Hx Neurologic/Epilepsy: No (04/26/2016 23:31:Sara Carreon RN) Med Hx Psychiatric Disorders: No (04/26/2016 23:31:Sara Carreon RN) Med Hx Hepatitis/Liver Disease: No (04/26/2016 23:31:Sara Carreon RN) Med Hx Varicosities/Phlebitis: No (04/26/2016 23:31:Sara Carreon RN) Med Hx Thyroid Dysfunction: No (04/26/2016 23:31:Sara Carreon RN) Med Hx Trauma/Violence: No (04/26/2016 23:31:Sara Crareon RN) Med Hx Blood Transfusion: No (04/26/2016 23:31:Sara Carreon RN) Med Hx Pulmonary (Asthma,TB): No (04/26/2016 23:31:Sara Carreon RN) Med Hx Breast: No (04/26/2016 23:31:Sara Carreon RN) Med Hx WAREHOUSE RECEIVING SUPERVISOR Surgery: No (04/26/2016 23:31:Sara Carreon RN) Med Hx Hospitalization/Surgery: No (04/26/2016 23:31:Sara Carreon RN) Med Hx Anesthetic Complications: No (04/26/2016 23:31:Sara Carreon RN) Med Hx Abnormal Pap Smear: No (04/26/2016 23:31:Sara Carreon RN) Other Medical Diseases: No (04/26/2016 23:31:Sara Carreon RN) Med Hx Significant Family Hx: No (04/26/2016 23:31:Sara Carreon RN) Details of Med/Surg 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 (04/26/2016 23:31:Sara Carreon RN) INFECTIOUS HISTORY Inf Hx Gonorrhea: No (04/26/2016 23:31:Sara Carreon RN) Inf Hx Chlamydia: No (04/26/2016 23:31:Sara Carreon RN) Inf Hx Syphilis: No (04/26/2016 23:31:Sara Carreon RN) Inf Hx HIV/AIDS: No (04/26/2016 23:31:Sara Carreon RN) Inf Hx Human Papilloma Virus: No (04/26/2016 23:31:Sara Carreon RN) Inf Hx Pt/Partner Genital Herpes: No (04/26/2016 23:31:Sara Carreon RN) Inf Hx Tuberculosis/Exposure: No (04/26/2016 23:31:Sara Carreon RN) Inf Hx Hepatitis B,C: No (04/26/2016 23:31:Sara Carreon RN) Inf Hx Rash or Viral Illness: No (04/26/2016 23:31:Sara Carreon RN) GENETIC HISTORY Gen Hx Age >=35 at CARLO: No (04/26/2016 23:31:Sara Carreon RN) Gen Hx Thalassemia: No (04/26/2016 23:31:Sara Carreon RN) Gen Hx Congenital Heart Defect: No (04/26/2016 23:31:Sara Carreon RN) Gen Hx Neural Tube Defect: No (04/26/2016 23:31:Sara Carreon RN) Gen Hx Down's Syndrome: No (04/26/2016 23:31:Sara Carreon RN) Gen Hx Tremaine-Sachs: No (04/26/2016 23:31:Sara Carreon RN) Gen Hx Delmar: No (04/26/2016 23:31:Sara Carreon RN) Gen Hx Familial Dysautonomia: No (04/26/2016 23:31:Sara Carreon RN) Gen Hx Sickle Cell Disease/Trait: No (04/26/2016 23:31:Sara Carreon RN) Gen Hx Hemophilia/Blood Disorder: No (04/26/2016 23:31:Sara Carreon RN) Gen Hx Muscular Dystrophy: No (04/26/2016 23:31:Sara Carreon RN) Gen Hx Cystic Fibrosis: No (04/26/2016 23:31:Sara Carreon RN) Gen Hx Huntingtons Chorea: No (04/26/2016 23:31:Sara Carreon RN) Gen Hx Mental Retardation/Autism: No (04/26/2016 23:31:Sara Carreon RN) Gen Hx Tested for Fragile X: No (04/26/2016 23:31:Sara Carreon RN) Gen Hx Other Inher/Chromosomal: No (04/26/2016 23:31:Sara Carreon RN) Gen Hx Maternal Metabolic DO: No (04/26/2016 23:31:Sara Carreon RN) Gen Hx Pt Father or FOB Defect: No (04/26/2016 23:31:Sara Carreon RN) Gen Hx Other Genetic History: No (04/26/2016 23:31:Sara Carreon RN) Gen Hx Drugs/Meds since LMP: Yes (04/26/2016 23:31:Sara Carreon RN) Gen Hx Medications: vitamin tylenol 1000mg for abd pain tylenol (04/26/2016 23:31:Sara Carreon RN)
--- NOTE | 2016-07-15 06:09 | L&D General Admission ---
General Admit Datetime Report Generated by CPN: 07/15/2016 06:00 INFORMATION Patient Age: 30 (04/26/2016 23:19:QS system process) EDC: 07/03/2016 00:00 (04/26/2016 23:31:Sara Carreon RN) : 2 (04/26/2016 23:31:Sara Carreon RN) Para: 1 (04/26/2016 23:31:Sara Carreon RN) Term: 1 (04/26/2016 23:31:Sara Carreon RN) : 0 (04/26/2016 23:31:Leilani Batista RN) Spontaneous Abortions: 0 (04/26/2016 23:31:Leilani Batista RN) Induced Abortions: 0 (04/26/2016 23:31:Leilani Batista RN) Livin (04/26/2016 23:31:Leilani Batista RN) Cesareans: 0 (04/26/2016 23:31:Leilani Batista RN) VBACs: 0 (04/26/2016 23:31:Leilani Batista RN) Ectopic: 0 (04/26/2016 23:31:Leilani Batista RN) Multiple Births: 0 (04/26/2016 23:31:Leilani Batista RN) Baby, Number in Womb: 1 (07/03/2016 20:24:Radha Ruiz RN) CARE Primary Enterprise Application Analyst: [facility] (04/26/2016 23:31:Sara Carreon RN) Adequate Care: Yes (04/26/2016 23:31:Sara Carreon RN) Height (in): 71 (07/12/2016 09:34:QS system process) ALLERGIES Medication Allergy: No (04/26/2016 23:31:Sraa Carreon RN) Medication Allergies: NA (04/26/2016 23:31:Sara Carreon RN) Latex Allergy: No Latex Allergies (04/26/2016 23:31:Sara Carreon RN) Food Allergies: NA (04/26/2016 23:31:Sara Carreon RN) Environmental Allergies: Bee stings (04/26/2016 23:31:Sara Carreon RN) COMMUNICATION Primary Language: Libyan (04/26/2016 23:31:Sara Carreon RN) Medical Tx Preferred Language: Libyan (04/26/2016 23:31:Sara Carreon RN) Communication Barrier(s): None (04/26/2016:31:Sara Carreon RN) DEMOGRAPHICS Address: [address] [place] [phone] (04/26/2016 23:19:QS system process) Zipcode: [phone] (04/26/2016 23:19:QS system process) Home (04/26/2016 23:19:QS system process) Work (04/26/2016 23:19:QS system process) N: [phone] (04/26/2016 23:19:QS system process) Next of Kin Name: DREW MONAE (06/23/2016 12:02:QS system process) Next of Kin (06/23/2016 12:02:QS system process) Next of Kin Relationship: OR (06/23/2016 12:02:QS system process) Date of : 1985 (04/26/2016 23:19:QS system process) Marital Status: Single (04/26/2016 23:19:QS system process) Sex: Female (04/26/2016 23:19:QS system process) Occupation: Other (04/26/2016 23:31:Leilani Batista RN) 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 [id number] (04/26/2016 23:31:Sara Carreon RN) Marijuana: No (04/26/2016 23:31:Sara Carreon RN) Cocaine: No (04/26/2016 23:31:Sara Carreon RN) Other Illicit Drugs: No (04/26/2016 23:31:Sara Carreon RN) VACCINE HISTORY Influenza Vaccine: Yes (04/26/2016 23:31:Sara Carreon RN) Influenza Date: 05/2017 (04/26/2016 23:31:Gia Ng RN) Pneumococcal Vaccine: No (04/26/2016 23:31:Sara Carreon RN) Tetanus Vaccine: Yes (04/26/2016 23:31:Sara Carreon RN) Tetanus Date: 2011 (04/26/2016 23:31:Sara Carreon RN) Tdap Vaccine: Yes (04/26/2016 23:31:Sara Carreon RN) Tdap Date: 2015 (04/26/2016 23:31:Sara Carreon RN) Hepatitis B Vaccine: Uncertain (04/26/2016 23:31:Sara Carreon RN) Special Procedures Tech: [facility] (04/26/2016 23:31:Sara Carreon RN) Feeding Preference: Formula (04/26/2016 23:31:Sara Carreon RN) Benefit of Breast Feed Discussed: Yes (04/26/2016 23:31:Sara Carreon RN) Circumcision: N/A (04/26/2016 23:31:Sara Carreon RN) Classes Attended: No (04/26/2016 23:31:Sara Carreon RN) Tubal Ligation: Yes (04/26/2016 23:31:Sara Carreon RN) Tubal Authorization Signed: No (04/26/2016 23:31:Sara Carreon RN) Consent: N/A (04/26/2016 23:31:Sara Carreon RN) Consent Signed: N/A (04/26/2016 23:31:Sara Carreon RN) Pain Management Plans: Epidural (04/26/2016 23:31:Sara Carreon RN) Plans for Labor and Delivery: None (04/26/2016 23:31:Sara Carreon RN) Support Person: Drew Monae (04/26/2016 23:31:Sara Carreon RN) Support Person Relationship: Significant Other (04/26/2016 23:31:Sara Carreon RN) Cultural/Spritual Practice: No (04/26/2016 23:31:Sara Carreon RN) Spir/Cult Dietary Needs: No (04/26/2016 23:31:Sara Carreon RN) LIVING SITUATION/DISCHARGE PLAN Living Arrangements: House (04/26/2016 23:31:Sara Carreon RN) Adequate Access to:: Electric; Heat; Refrigeration; Plumbing/Running water; Phone; Transportation (04/26/2016 23:31:Sara Carreon RN) WIC Program: No (04/26/2016 23:31:Leilani Batista RN) 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 Wire Harness Design 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 Person: Drew Monae (04/26/2016 23:31:Sara Carreon RN) Person to Help after Discharge: Drew Monae (04/26/2016 23:31:Sara Carreon RN) Currently Using Commun Resources: Yes (04/26/2016 23:31:Sara Carreon RN) Specify Current Resource Used: EBT (04/26/2016 23:31:Leilani Batista RN) Outside Agency/Manager Med Surg: Yes (04/26/2016 23:31:Sara Carreon RN) Car Seat for Discharge: No (04/26/2016 23:31:Sara Carreon RN) Adoption Requested: No (04/26/2016 23:31:Sara Carreon RN) Pt Contact w/infant Post : N/A (04/26/2016 23:31:Sara Carreon RN) LABS Blood Type: A Positive (04/26/2016 23:31:Sara Carreon RN) Antibody Screen: negative (04/26/2016 23:31:Leilani Batista RN) Hemoglobin: 11.3 L (07/11/2016 07:29:QS system process) Hematocrit: 33.3 L (07/11/2016 07:29:QS system process) MCV: 85 (07/11/2016 07:29:QS system process) Group Beta Strep: Positive (04/27/2016 01:05:Leilani Batista RN) Gonorrhea: Negative (04/26/2016 23:31:Leilani Batista RN) Chlamydia: Negative (04/26/2016 23:31:Leilani Batista RN) RPR/VDRL: Nonreactive (04/26/2016 23:31:Sara Carreon RN) HIV Results: negative (04/26/2016 23:31:Leilani Batista RN) Hepatitis B: Negative (04/26/2016 23:31:Leilani Batista RN) Rubella: Immune (04/26/2016 23:31:Sara Carreon RN) OB/PREVIOUS HISTORY Previous Procedures: Ultrasound; NST (04/26/2016 23:31:Sara Carreon RN) Current Procedures: Ultrasound; NST (04/26/2016 23:31:Leilani Batista RN) History of Previous : No (04/26/2016 23:31:Sara Carreon RN) History of Gestational Diabetes: No (04/26/2016 23:31:Sara Carreon RN) History of PIH: No (04/26/2016 23:31:Sara Carreon RN) History of Incompetent Cervix: No (04/26/2016 23:31:Sara Carreon RN) History of Placenta Previa/Abrup: No (04/26/2016 23:31:Sara Carreon RN) History of Macrosomia: No (04/26/2016 23:31:Sara Carreon RN) History of IUGR: No (04/26/2016 23:31:Sara Carreon RN) History of Hemorrhage: No (04/26/2016 23:31:Sara Carreon RN) History of Loss/Stillborn: No (04/26/2016 23:31:Sara Carreon RN) History of : No (04/26/2016 23:31:Sara Carreon RN) History of D (Rh) Sensitization: No (04/26/2016 23:31:Sara Carreon RN) History Recurrent Loss/Stillborn: No (04/26/2016 23:31:Sara Carreon RN) History Depression/PP Depression: No (04/26/2016 23:31:Sara Carreon RN) History of Uterine Anomaly/ECHO: No (04/26/2016 23:31:Sara Carreon RN) History of Infertility: No (04/26/2016 23:31:Sara Carreon RN) History of ART Treatment: No (04/26/2016 23:31:Sara Carreon RN) History of ECHO: No (04/26/2016 23:31:Sara Carreon RN) Comments Obstetrical History: G1: 2005 10 pound 2 ounce male G2: Current (04/26/2016 23:31:Leilani Batista RN) MEDICAL HISTORY Med Hx Diabetes: No (04/26/2016 23:31:Sara Carreon RN) Med Hx Hypertension: No (04/26/2016 23:31:Sara Carreon RN) Med Hx Heart Disease: Yes (04/26/2016 23:31:Sara Carreon RN) Med Hx Autoimmune Disorder: No (04/26/2016 23:31:Sara Carreon RN) Med Hx Kidney Disease/UTI: No (04/26/2016 23:31:Sara Carreon RN) Med Hx Neurologic/Epilepsy: No (04/26/2016 23:31:Sara Carreon RN) Med Hx Psychiatric Disorders: No (04/26/2016 23:31:Sara Carreon RN) Med Hx Hepatitis/Liver Disease: No (04/26/2016 23:31:Sara Carreon RN) Med Hx Varicosities/Phlebitis: No (04/26/2016 23:31:Sara Carreon RN) Med Hx Thyroid Dysfunction: No (04/26/2016 23:31:Sara Carreon RN) Med Hx Trauma/Violence: No (04/26/2016 23:31:Sara Carreon RN) Med Hx Blood Transfusion: No (04/26/2016 23:31:Sara Carreon RN) Med Hx Pulmonary (Asthma,TB): No (04/26/2016 23:31:Sara Carreon RN) Med Hx Breast: No (04/26/2016 23:31:Sara Carreon RN) Med Hx HOROLOGIST Surgery: No (04/26/2016 23:31:Sara Carreon RN) Med Hx Hospitalization/Surgery: No (04/26/2016 23:31:Sara Carreon RN) Med Hx Anesthetic Complications: No (04/26/2016 23:31:Sara Carreon RN) Med Hx Abnormal Pap Smear: No (04/26/2016 23:31:Sara Carreon RN) Other Medical Diseases: No (04/26/2016 23:31:Sara Carreon RN) Med Hx Significant Family Hx: No (04/26/2016 23:31:Sara Carreon RN) Details of Med/Surg 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 (04/26/2016 23:31:Sara Carreon RN) INFECTIOUS HISTORY Inf Hx Gonorrhea: No (04/26/2016 23:31:Sara Carreon RN) Inf Hx Chlamydia: No (04/26/2016 23:31:Sara Carreon RN) Inf Hx Syphilis: No (04/26/2016 23:31:Sara Carreon RN) Inf Hx HIV/AIDS: No (04/26/2016 23:31:Sara Carreon RN) Inf Hx Human Papilloma Virus: No (04/26/2016 23:31:Sara Carreon RN) Inf Hx Pt/Partner Genital Herpes: No (04/26/2016 23:31:Sara Carreon RN) Inf Hx Tuberculosis/Exposure: No (04/26/2016 23:31:Sara Carreon RN) Inf Hx Hepatitis B,C: No (04/26/2016 23:31:Sara Carreon RN) Inf Hx Rash or Viral Illness: No (04/26/2016 23:31:Sara Carreon RN) GENETIC HISTORY Gen Hx Age >=35 at CARLO: No (04/26/2016 23:31:Sara Carreon RN) Gen Hx Thalassemia: No (04/26/2016 23:31:Sara Carreon RN) Gen Hx Congenital Heart Defect: No (04/26/2016 23:31:Sara Carreon RN) Gen Hx Neural Tube Defect: No (04/26/2016 23:31:Sara Carreon RN) Gen Hx Down's Syndrome: No (04/26/2016 23:31:Sara Carreon RN) Gen Hx Tremaine-Sachs: No (04/26/2016 23:31:Sara Carreon RN) Gen Hx Delmar: No (04/26/2016 23:31:Sara Carreon RN) Gen Hx Familial Dysautonomia: No (04/26/2016 23:31:Sara Carreon RN) Gen Hx Sickle Cell Disease/Trait: No (04/26/2016 23:31:Sara Carreon RN) Gen Hx Hemophilia/Blood Disorder: No (04/26/2016 23:31:Sara Carreon RN) Gen Hx Muscular Dystrophy: No (04/26/2016 23:31:Sara Carreon RN) Gen Hx Cystic Fibrosis: No (04/26/2016 23:31:Sara Carreon RN) Gen Hx Huntingtons Chorea: No (04/26/2016 23:31:Sara Carreon RN) Gen Hx Mental Retardation/Autism: No (04/26/2016 23:31:Sara Carreon RN) Gen Hx Tested for Fragile X: No (04/26/2016 23:31:Sara Carreon RN) Gen Hx Other Inher/Chromosomal: No (04/26/2016 23:31:Sara Carreon RN) Gen Hx Maternal Metabolic DO: No (04/26/2016 23:31:Sara Carreon RN) Gen Hx Pt Father or FOB Defect: No (04/26/2016 23:31:Sara Carreon RN) Gen Hx Other Genetic History: No (04/26/2016 23:31:Sara Carreon RN) Gen Hx Drugs/Meds since LMP: Yes (04/26/2016 23:31:Sara Carreon RN) Gen Hx Medications: vitamin tylenol 1000mg for abd pain tylenol (04/26/2016 23:31:Sara Carreon RN)
--- NOTE | 2016-07-15 06:09 | L&D Current Admission ---
Current Admit Datetime Report Generated by CPN: 07/15/2016 06:00 ADMISSION INFORMATION Current Admit Date/Time: 07/10/2016 06:00 (06/23/2016 12:47:Leilani Batista RN) Reason for Admission: Induction of Labor (06/23/2016 12:47:Leilani Batista RN) Chief Complaint: Scheduled Induction of Labor (07/10/2016 07:30:Dorie Wyatt RN) Medications During : Vitamin (06/23/2016 12:47:Leilani Batista RN) EGA per Dates: 41.0 (06/23/2016 12:47:QS system process) Method of Arrival: Ambulatory (06/23/2016 12:47:Leilani Batista RN) Admitted From: Home (06/23/2016 12:47:Leilani Batista RN) Reason for Induction: Postterm (06/23/2016 12:47:Leilani Batista RN) Records Available: Yes (06/23/2016 12:47:Leilani Batista RN) General Admission Information: Reviewed (06/23/2016 12:47:Leilani Batista RN) BELONGINGS/ADVANCED DIRECTIVES Comments Regarding Disposition: see [facility] consent form (06/23/2016 12:47:Leilani Batista RN) Advance Direct for Healthcare: No, and Wants No Information (06/23/2016 12:47:Leilani Batista RN) Durable Power of Marketing Graphics Specialist: No (06/23/2016 12:47:Leilani Batista RN) Living Will: No (06/23/2016 12:47:Leilani Batista RN) Organ Donor: No (06/23/2016 12:47:Leilani Batista RN) Pt Rights Information Given: Yes (06/23/2016 12:47:Leilani Batista RN) Pt Understands Pt Rights: Yes (06/23/2016 12:47:Leilani Batista RN) LEARNING ASSESSMENT Knowledge Level: Understands L_D Process (06/23/2016 12:47:Leilani Batista RN) Barriers to Learning: None (06/23/2016 12:47:Leilani Batista RN) Learning Readiness: Motivated (06/23/2016 12:47:Leilani Batista RN) Learns Best By: 1 to 1 Instruction; Reading; Videos; Demonstration (06/23/2016 12:47:Leilani Batista RN) Learning Needs: Labor and Delivery Process; Pain Management; Symptoms to Report; Treatment Plan; Medication; Diagnosis; Nutrition; Equipment; Infant Care; Community Resources (06/23/2016 12:47:Leilani Batista RN) DOMESTIC VIOLANCE SCREENING Dom Viol Threatened/Hurt: No (06/23/2016 12:47:Leilani Batista RN) Hx of Abuse/Neglect past 2yrs: No (06/23/2016 12:47:Leilani Batista RN) Feel Unsafe Going Home: No (06/23/2016 12:47:Leilani Batista RN) Addt'l Observ Indicating Abuse: No (06/23/2016 12:47:Leilani Batista RN) Reason Unable to Complete Screen: N/A, Screen Completed (06/23/2016 12:47:Leilani Batista RN) Considered Personal Harm/Suicide: No (06/23/2016 12:47:Leilani Batista RN) NUTRITIONAL/FUNCTIONAL SCREENING Problem with Appetite >5 Days: No (06/23/2016 12:47:Leilani Batista RN) Chew/Swallow Difficulties: No (06/23/2016 12:47:Leilani Batista RN) Inappropriate Wt Gain/Loss: No (06/23/2016 12:47:Leilani Batista RN) Presence Skin Breakdown/Ulcer: No (06/23/2016 12:47:Leilani Batista RN) Special Diet: No (06/23/2016 12:47:Leilani Batista RN) Pt Requests Digital Sales Manager Visit: No (06/23/2016 12:47:Leilani Batista RN) Hx of Any of the Following?: N/A (06/23/2016 12:47:Leilani Batista RN) New Diagnosis of: N/A (06/23/2016 12:47:Leilani Batista RN) Requires Assist w/Ambulation: No (06/23/2016 12:47:Leilani Batista RN) Uses Assist Device to Ambulate: No (06/23/2016 12:47:Leilani Batista RN) Pt Requires Help w/ADL's: No (06/23/2016 12:47:Leilani Batista RN)
--- NOTE | 2016-07-16 06:06 | L&D Current Admission ---
Current Admit Datetime Report Generated by CPN: 07/16/2016 06:00 ADMISSION INFORMATION Current Admit Date/Time: 07/10/2016 06:00 (06/23/2016 12:47:Leilani Batista RN) Reason for Admission: Induction of Labor (06/23/2016 12:47:Leilani Batista RN) Chief Complaint: Scheduled Induction of Labor (07/10/2016 07:30:Dorie Wyatt RN) Medications During : Vitamin (06/23/2016 12:47:Leilani Batista RN) EGA per Dates: 41.0 (06/23/2016 12:47:QS system process) Method of Arrival: Ambulatory (06/23/2016 12:47:Leilani Batista RN) Admitted From: Home (06/23/2016 12:47:Leilani Batista RN) Reason for Induction: Postterm (06/23/2016 12:47:Leilani Batista RN) Records Available: Yes (06/23/2016 12:47:Leilani Batista RN) General Admission Information: Reviewed (06/23/2016 12:47:Leilani Batista RN) BELONGINGS/ADVANCED DIRECTIVES Comments Regarding Disposition: see [facility] consent form (06/23/2016 12:47:Leilani Batista RN) Advance Direct for Healthcare: No, and Wants No Information (06/23/2016 12:47:Leilani Batista RN) Durable Power of Telephone Plant Power Operator: No (06/23/2016 12:47:Leilani Batista RN) Living Will: No (06/23/2016 12:47:Leilani Batista RN) Organ Donor: No (06/23/2016 12:47:Leilani Batista RN) Pt Rights Information Given: Yes (06/23/2016 12:47:Leilani Batista RN) Pt Understands Pt Rights: Yes (06/23/2016 12:47:Leilani Batista RN) LEARNING ASSESSMENT Knowledge Level: Understands L_D Process (06/23/2016 12:47:Leilani Batista RN) Barriers to Learning: None (06/23/2016 12:47:Leilani Batista RN) Learning Readiness: Motivated (06/23/2016 12:47:Leilani Batista RN) Learns Best By: 1 to 1 Instruction; Reading; Videos; Demonstration (06/23/2016 12:47:Leilani Batista RN) Learning Needs: Labor and Delivery Process; Pain Management; Symptoms to Report; Treatment Plan; Medication; Diagnosis; Nutrition; Equipment; Infant Care; Community Resources (06/23/2016 12:47:Leilani Batista RN) DOMESTIC VIOLANCE SCREENING Dom Viol Threatened/Hurt: No (06/23/2016 12:47:Leilani Batista RN) Hx of Abuse/Neglect past 2yrs: No (06/23/2016 12:47:Leilani Batista RN) Feel Unsafe Going Home: No (06/23/2016 12:47:Leilani Batista RN) Addt'l Observ Indicating Abuse: No (06/23/2016 12:47:Leilani Batista RN) Reason Unable to Complete Screen: N/A, Screen Completed (06/23/2016 12:47:Leilani Batista RN) Considered Personal Harm/Suicide: No (06/23/2016 12:47:Leilani Batista RN) NUTRITIONAL/FUNCTIONAL SCREENING Problem with Appetite >5 Days: No (06/23/2016 12:47:Leilani Batista RN) Chew/Swallow Difficulties: No (06/23/2016 12:47:Leilani Batista RN) Inappropriate Wt Gain/Loss: No (06/23/2016 12:47:Leilani Batista RN) Presence Skin Breakdown/Ulcer: No (06/23/2016 12:47:Leilani Batista RN) Special Diet: No (06/23/2016 12:47:Leilani Batista RN) Pt Requests Engineering Director Visit: No (06/23/2016 12:47:Leilani Batista RN) Hx of Any of the Following?: N/A (06/23/2016 12:47:Leilani Batista RN) New Diagnosis of: N/A (06/23/2016 12:47:Leilani Batista RN) Requires Assist w/Ambulation: No (06/23/2016 12:47:Leilani Batista RN) Uses Assist Device to Ambulate: No (06/23/2016 12:47:Leilani Batista RN) Pt Requires Help w/ADL's: No (06/23/2016 12:47:Leilani Batista RN)
--- NOTE | 2016-07-16 06:06 | L&D General Admission ---
General Admit Datetime Report Generated by CPN: 07/16/2016 06:00 INFORMATION Patient Age: 30 (04/26/2016 23:19:QS system process) EDC: 07/03/2016 00:00 (04/26/2016 23:31:Sara Carreon RN) : 2 (04/26/2016 23:31:Sara Carreon RN) Para: 1 (04/26/2016 23:31:Sara Carreon RN) Term: 1 (04/26/2016 23:31:Sara Carreon RN) : 0 (04/26/2016 23:31:Leilani Batista RN) Spontaneous Abortions: 0 (04/26/2016 23:31:Leilani Batista RN) Induced Abortions: 0 (04/26/2016 23:31:Leilani Batista RN) Livin (04/26/2016 23:31:Leilani Batista RN) Cesareans: 0 (04/26/2016 23:31:Leilani Batista RN) VBACs: 0 (04/26/2016 23:31:Leilani Batista RN) Ectopic: 0 (04/26/2016 23:31:Leilani Batista RN) Multiple Births: 0 (04/26/2016 23:31:Leilani Batista RN) Baby, Number in Womb: 1 (07/03/2016 20:24:Radha Ruiz RN) CARE Primary Industrial Coffee Grinder: [facility] (04/26/2016 23:31:Sara Carreon RN) Adequate Care: Yes (04/26/2016 23:31:Sara Carreon RN) Height (in): 71 (07/12/2016 09:34:QS system process) ALLERGIES Medication Allergy: No (04/26/2016 23:31:Sara Carreon RN) Medication Allergies: NA (04/26/2016 23:31:Sara Carreon RN) Latex Allergy: No Latex Allergies (04/26/2016 23:31:Sara Carreon RN) Food Allergies: NA (04/26/2016 23:31:Sara Carreon RN) Environmental Allergies: Bee stings (04/26/2016 23:31:Sara Carreon RN) COMMUNICATION Primary Language: Danish (04/26/2016 23:31:Sara Carreon RN) Medical Tx Preferred Language: Danish (04/26/2016 23:31:Sara Carreon RN) Communication Barrier(s): None (04/26/2016:31:Sara Carreon RN) DEMOGRAPHICS Address: [address] [place] [id number] (04/26/2016 23:19:QS system process) Zipcode: [phone] (04/26/2016 23:19:QS system process) Home (04/26/2016 23:19:QS system process) Work (04/26/2016 23:19:QS system process) N: [id number] (04/26/2016 23:19:QS system process) Next of Kin Name: DREW MONAE (06/23/2016 12:02:QS system process) Next of Kin (06/23/2016 12:02:QS system process) Next of Kin Relationship: OR (06/23/2016 12:02:QS system process) Date of : 1985 (04/26/2016 23:19:QS system process) Marital Status: Single (04/26/2016 23:19:QS system process) Sex: Female (04/26/2016 23:19:QS system process) Occupation: Other (04/26/2016 23:31:Leilani Batista RN) 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 [id number] (04/26/2016 23:31:Sara Carreon RN) Marijuana: No (04/26/2016 23:31:Sara Carreon RN) Cocaine: No (04/26/2016 23:31:Sara Carreon RN) Other Illicit Drugs: No (04/26/2016 23:31:Sara Carreon RN) VACCINE HISTORY Influenza Vaccine: Yes (04/26/2016 23:31:Sara Carreon RN) Influenza Date: 05/2017 (04/26/2016 23:31:Gia Ng RN) Pneumococcal Vaccine: No (04/26/2016 23:31:Sara Carreon RN) Tetanus Vaccine: Yes (04/26/2016 23:31:Sara Carreon RN) Tetanus Date: 2011 (04/26/2016 23:31:Sara Carreon RN) Tdap Vaccine: Yes (04/26/2016 23:31:Sara Carreon RN) Tdap Date: 2015 (04/26/2016 23:31:Sara Carreon RN) Hepatitis B Vaccine: Uncertain (04/26/2016 23:31:Sara Carreon RN) Brim Rounder: [facility] (04/26/2016 23:31:Sara Carreon RN) Feeding Preference: Formula (04/26/2016 23:31:Sara Carreon RN) Benefit of Breast Feed Discussed: Yes (04/26/2016 23:31:Sara Carreon RN) Circumcision: N/A (04/26/2016 23:31:Sara Carreon RN) Classes Attended: No (04/26/2016 23:31:Sara Carreon RN) Tubal Ligation: Yes (04/26/2016 23:31:Sara Carreon RN) Tubal Authorization Signed: No (04/26/2016 23:31:Sara Carreon RN) Consent: N/A (04/26/2016 23:31:Sara Carreon RN) Consent Signed: N/A (04/26/2016 23:31:Sara Carreon RN) Pain Management Plans: Epidural (04/26/2016 23:31:Sara Carreon RN) Plans for Labor and Delivery: None (04/26/2016 23:31:Sara Carreon RN) Support Person: Drew Monae (04/26/2016 23:31:Sara Carreon RN) Support Person Relationship: Significant Other (04/26/2016 23:31:Sara Carreon RN) Cultural/Spritual Practice: No (04/26/2016 23:31:Sara Carreon RN) Spir/Cult Dietary Needs: No (04/26/2016 23:31:Sara Carreon RN) LIVING SITUATION/DISCHARGE PLAN Living Arrangements: House (04/26/2016 23:31:Sara Carreon RN) Adequate Access to:: Electric; Heat; Refrigeration; Plumbing/Running water; Phone; Transportation (04/26/2016 23:31:Sara Carreon RN) WIC Program: No (04/26/2016 23:31:Leilani Batista RN) Discharge Call Center Rn Person: Drew Monae (04/26/2016 23:31:Sara Carreon RN) Person to Help after Discharge: Drew Monae (04/26/2016 23:31:Sara Carreon RN) Currently Using Commun Resources: Yes (04/26/2016 23:31:Sara Carreon RN) Specify Current Resource Used: EBT (04/26/2016 23:31:Leilani Batista RN) Outside Agency/Accident Examiner: Yes (04/26/2016 23:31:Sara Carreon RN) Car Seat for Discharge: No (04/26/2016 23:31:Sara Carreon RN) Adoption Requested: No (04/26/2016 23:31:Sara Carreon RN) Pt Contact w/infant Post : N/A (04/26/2016 23:31:Sara Carreon RN) LABS Blood Type: A Positive (04/26/2016 23:31:Sara Carreon RN) Antibody Screen: negative (04/26/2016 23:31:Leilani Batista RN) Hemoglobin: 11.3 L (07/11/2016 07:29:QS system process) Hematocrit: 33.3 L (07/11/2016 07:29:QS system process) MCV: 85 (07/11/2016 07:29:QS system process) Group Beta Strep: Positive (04/27/2016 01:05:Leilani Batista RN) Gonorrhea: Negative (04/26/2016 23:31:Leilani Batista RN) Chlamydia: Negative (04/26/2016 23:31:Leilani Batista RN) RPR/VDRL: Nonreactive (04/26/2016 23:31:Sara Carreon RN) HIV Results: negative (04/26/2016 23:31:Leilani Batista RN) Hepatitis B: Negative (04/26/2016 23:31:Leilani Batista RN) Rubella: Immune (04/26/2016 23:31:Sara Carreon RN) OB/PREVIOUS HISTORY Previous Procedures: Ultrasound; NST (04/26/2016 23:31:Sara Carreon RN) Current Procedures: Ultrasound; NST (04/26/2016 23:31:Leilani Batista RN) History of Previous : No (04/26/2016 23:31:Sara Carreon RN) History of Gestational Diabetes: No (04/26/2016 23:31:Sara Carreon RN) History of PIH: No (04/26/2016 23:31:Sara Carreon RN) History of Incompetent Cervix: No (04/26/2016 23:31:Sara Carreon RN) History of Placenta Previa/Abrup: No (04/26/2016 23:31:Sara Carreon RN) History of Macrosomia: No (04/26/2016 23:31:Sara Carreon RN) History of IUGR: No (04/26/2016 23:31:Sara Carreon RN) History of Hemorrhage: No (04/26/2016 23:31:Sara Carreon RN) History of Loss/Stillborn: No (04/26/2016 23:31:Sara Carreon RN) History of : No (04/26/2016 23:31:Sara Carreon RN) History of D (Rh) Sensitization: No (04/26/2016 23:31:Sara Carreon RN) History Recurrent Loss/Stillborn: No (04/26/2016 23:31:Sara Carreon RN) History Depression/PP Depression: No (04/26/2016 23:31:Sara Carreon RN) History of Uterine Anomaly/ECHO: No (04/26/2016 23:31:Sara Carreon RN) History of Infertility: No (04/26/2016 23:31:Sara Carreon RN) History of ART Treatment: No (04/26/2016 23:31:Sara Carreon RN) History of ECHO: No (04/26/2016 23:31:Sara Carreon RN) Comments Obstetrical History: G1: 2005 10 pound 2 ounce male G2: Current (04/26/2016 23:31:Leilani Batista RN) MEDICAL HISTORY Med Hx Diabetes: No (04/26/2016 23:31:Sara Carreon RN) Med Hx Hypertension: No (04/26/2016 23:31:Sara Carreon RN) Med Hx Heart Disease: Yes (04/26/2016 23:31:Sara Carreon RN) Med Hx Autoimmune Disorder: No (04/26/2016 23:31:Sara Carreon RN) Med Hx Kidney Disease/UTI: No (04/26/2016 23:31:Sara Carreon RN) Med Hx Neurologic/Epilepsy: No (04/26/2016 23:31:Sara Carreon RN) Med Hx Psychiatric Disorders: No (04/26/2016 23:31:Sara Carreon RN) Med Hx Hepatitis/Liver Disease: No (04/26/2016 23:31:Sara Carreon RN) Med Hx Varicosities/Phlebitis: No (04/26/2016 23:31:Sara Carreon RN) Med Hx Thyroid Dysfunction: No (04/26/2016 23:31:Sara Carreon RN) Med Hx Trauma/Violence: No (04/26/2016 23:31:Sara Carreon RN) Med Hx Blood Transfusion: No (04/26/2016 23:31:Sara Carreon RN) Med Hx Pulmonary (Asthma,TB): No (04/26/2016 23:31:Sara Carreon RN) Med Hx Breast: No (04/26/2016 23:31:Sara Carreon RN) Med Hx LOG CLERK Surgery: No (04/26/2016 23:31:Sara Carreon RN) Med Hx Hospitalization/Surgery: No (04/26/2016 23:31:Sara Carreon RN) Med Hx Anesthetic Complications: No (04/26/2016 23:31:Sara Carreon RN) Med Hx Abnormal Pap Smear: No (04/26/2016 23:31:Sara Carreon RN) Other Medical Diseases: No (04/26/2016 23:31:Sara Carreon RN) Med Hx Significant Family Hx: No (04/26/2016 23:31:Sara Carreon RN) Details of Med/Surg 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 (04/26/2016 23:31:Sara Carreon RN) INFECTIOUS HISTORY Inf Hx Gonorrhea: No (04/26/2016 23:31:Sara Carreon RN) Inf Hx Chlamydia: No (04/26/2016 23:31:Sara Carreon RN) Inf Hx Syphilis: No (04/26/2016 23:31:Sara Carreon RN) Inf Hx HIV/AIDS: No (04/26/2016 23:31:Sara Carreon RN) Inf Hx Human Papilloma Virus: No (04/26/2016 23:31:Sara Carreon RN) Inf Hx Pt/Partner Genital Herpes: No (04/26/2016 23:31:Sara Carreon RN) Inf Hx Tuberculosis/Exposure: No (04/26/2016 23:31:Sara Carreon RN) Inf Hx Hepatitis B,C: No (04/26/2016 23:31:Sara Carreon RN) Inf Hx Rash or Viral Illness: No (04/26/2016 23:31:Sara Carreon RN) GENETIC HISTORY Gen Hx Age >=35 at CARLO: No (04/26/2016 23:31:Sara Carreon RN) Gen Hx Thalassemia: No (04/26/2016 23:31:Sara Carreon RN) Gen Hx Congenital Heart Defect: No (04/26/2016 23:31:Sara Carreon RN) Gen Hx Neural Tube Defect: No (04/26/2016 23:31:Sara Carreon RN) Gen Hx Down's Syndrome: No (04/26/2016 23:31:Sara Carreon RN) Gen Hx Tremaine-Sachs: No (04/26/2016 23:31:Sara Carreon RN) Gen Hx Delmar: No (04/26/2016 23:31:Sara Carreon RN) Gen Hx Familial Dysautonomia: No (04/26/2016 23:31:Sara Carreon RN) Gen Hx Sickle Cell Disease/Trait: No (04/26/2016 23:31:Sara Carreon RN) Gen Hx Hemophilia/Blood Disorder: No (04/26/2016 23:31:Sara Carreon RN) Gen Hx Muscular Dystrophy: No (04/26/2016 23:31:Sara Carreon RN) Gen Hx Cystic Fibrosis: No (04/26/2016 23:31:Sara Carreon RN) Gen Hx Huntingtons Chorea: No (04/26/2016 23:31:Sara Carreon RN) Gen Hx Mental Retardation/Autism: No (04/26/2016 23:31:Sara Carreon RN) Gen Hx Tested for Fragile X: No (04/26/2016 23:31:Sara Carreon RN) Gen Hx Other Inher/Chromosomal: No (04/26/2016 23:31:Sara Carreon RN) Gen Hx Maternal Metabolic DO: No (04/26/2016 23:31:Sara Carreon RN) Gen Hx Pt Father or FOB Defect: No (04/26/2016 23:31:Sara Carreon RN) Gen Hx Other Genetic History: No (04/26/2016 23:31:Sara Carreon RN) Gen Hx Drugs/Meds since LMP: Yes (04/26/2016 23:31:Sara Carreon RN) Gen Hx Medications: vitamin tylenol 1000mg for abd pain tylenol (04/26/2016 23:31:Sara Carreon RN)
--- NOTE | 2016-07-17 06:06 | L&D General Admission ---
General Admit Datetime Report Generated by CPN: 07/17/2016 06:00 INFORMATION Patient Age: 30 (04/26/2016 23:19:QS system process) EDC: 07/03/2016 00:00 (04/26/2016 23:31:Sara Carreon RN) : 2 (04/26/2016 23:31:Sara Carreon RN) Para: 1 (04/26/2016 23:31:Sara Carreon RN) Term: 1 (04/26/2016 23:31:Sara Carreon RN) : 0 (04/26/2016 23:31:Leilani Batista RN) Spontaneous Abortions: 0 (04/26/2016 23:31:Leilani Batista RN) Induced Abortions: 0 (04/26/2016 23:31:Leilani Batista RN) Livin (04/26/2016 23:31:Leilani Batista RN) Cesareans: 0 (04/26/2016 23:31:Leilani Batista RN) VBACs: 0 (04/26/2016 23:31:Leilani Batista RN) Ectopic: 0 (04/26/2016 23:31:Leilani Batista RN) Multiple Births: 0 (04/26/2016 23:31:Leilani Batista RN) Baby, Number in Womb: 1 (07/03/2016 20:24:Radha Ruiz RN) CARE Primary Leach Runner: [facility] (04/26/2016 23:31:Sara Carreon RN) Adequate Care: Yes (04/26/2016 23:31:Sara Carreon RN) Height (in): 71 (07/12/2016 09:34:QS system process) ALLERGIES Medication Allergy: No (04/26/2016 23:31:Sara Carreon RN) Medication Allergies: NA (04/26/2016 23:31:Sara Carreon RN) Latex Allergy: No Latex Allergies (04/26/2016 23:31:Sara Carreon RN) Food Allergies: NA (04/26/2016 23:31:Sara Carreon RN) Environmental Allergies: Bee stings (04/26/2016 23:31:Sara Carreon RN) COMMUNICATION Primary Language: Slovak (04/26/2016 23:31:Sara Carreon RN) Medical Tx Preferred Language: Slovak (04/26/2016 23:31:Sara Carreon RN) Communication Barrier(s): None (04/26/2016:31:Sara Carreon RN) DEMOGRAPHICS Address: [address] [place] [id number] (04/26/2016 23:19:QS system process) Zipcode: [id number] (04/26/2016 23:19:QS system process) Home (04/26/2016 23:19:QS system process) Work (04/26/2016 23:19:QS system process) N: [id number] (04/26/2016 23:19:QS system process) Next of Kin Name: DREW MONAE (06/23/2016 12:02:QS system process) Next of Kin (06/23/2016 12:02:QS system process) Next of Kin Relationship: OR (06/23/2016 12:02:QS system process) Date of : 1985 (04/26/2016 23:19:QS system process) Marital Status: Single (04/26/2016 23:19:QS system process) Sex: Female (04/26/2016 23:19:QS system process) Occupation: Other (04/26/2016 23:31:Leilani Batista RN) 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 [id number] (04/26/2016 23:31:Sara Carreon RN) Marijuana: No (04/26/2016 23:31:Sara Carreon RN) Cocaine: No (04/26/2016 23:31:Sara Carreon RN) Other Illicit Drugs: No (04/26/2016 23:31:Sara Carreon RN) VACCINE HISTORY Influenza Vaccine: Yes (04/26/2016 23:31:Sara Carreon RN) Influenza Date: 05/2017 (04/26/2016 23:31:Gia Ng RN) Pneumococcal Vaccine: No (04/26/2016 23:31:Sara Carreon RN) Tetanus Vaccine: Yes (04/26/2016 23:31:Sara Carreon RN) Tetanus Date: 2011 (04/26/2016 23:31:Sara Carreon RN) Tdap Vaccine: Yes (04/26/2016 23:31:Sara Carreon RN) Tdap Date: 2015 (04/26/2016 23:31:Sara Carreon RN) Hepatitis B Vaccine: Uncertain (04/26/2016 23:31:Sara Carreon RN) Braille Transcriber: [facility] (04/26/2016 23:31:Sara Carreon RN) Feeding Preference: Formula (04/26/2016 23:31:Sara Carreon RN) Benefit of Breast Feed Discussed: Yes (04/26/2016 23:31:Sara Carreon RN) Circumcision: N/A (04/26/2016 23:31:Sara Carreon RN) Classes Attended: No (04/26/2016 23:31:Sara Carreon RN) Tubal Ligation: Yes (04/26/2016 23:31:Sara Carreon RN) Tubal Authorization Signed: No (04/26/2016 23:31:Sara Carreon RN) Consent: N/A (04/26/2016 23:31:Sara Carreon RN) Consent Signed: N/A (04/26/2016 23:31:Sara Carreon RN) Pain Management Plans: Epidural (04/26/2016 23:31:Sara Carreon RN) Plans for Labor and Delivery: None (04/26/2016 23:31:Sara Carreon RN) Support Person: Drew Monae (04/26/2016 23:31:Sara Carreon RN) Support Person Relationship: Significant Other (04/26/2016 23:31:Sara Carreon RN) Cultural/Spritual Practice: No (04/26/2016 23:31:Sara Carreon RN) Spir/Cult Dietary Needs: No (04/26/2016 23:31:Sara Carreon RN) LIVING SITUATION/DISCHARGE PLAN Living Arrangements: House (04/26/2016 23:31:Sara Carreon RN) Adequate Access to:: Electric; Heat; Refrigeration; Plumbing/Running water; Phone; Transportation (04/26/2016 23:31:Sara Carreon RN) WIC Program: No (04/26/2016 23:31:Leilani Batista RN) Discharge Director Of Epidemiology Person: Drew Monae (04/26/2016 23:31:Sara Carreon RN) Person to Help after Discharge: Drew Monae (04/26/2016 23:31:Sara Carreon RN) Currently Using Commun Resources: Yes (04/26/2016 23:31:Sara Carreon RN) Specify Current Resource Used: EBT (04/26/2016 23:31:Leilani Batista RN) Outside Agency/Metal Pickling Equipment Operator: Yes (04/26/2016 23:31:Sara Carreon RN) Car Seat for Discharge: No (04/26/2016 23:31:Sara Carreon RN) Adoption Requested: No (04/26/2016 23:31:Sara Carreon RN) Pt Contact w/infant Post : N/A (04/26/2016 23:31:Sara Carreon RN) LABS Blood Type: A Positive (04/26/2016 23:31:Sara Carreon RN) Antibody Screen: negative (04/26/2016 23:31:Leilani Batista RN) Hemoglobin: 11.3 L (07/11/2016 07:29:QS system process) Hematocrit: 33.3 L (07/11/2016 07:29:QS system process) MCV: 85 (07/11/2016 07:29:QS system process) Group Beta Strep: Positive (04/27/2016 01:05:Leilani Batista RN) Gonorrhea: Negative (04/26/2016 23:31:Leilani Batista RN) Chlamydia: Negative (04/26/2016 23:31:Leilani Batista RN) RPR/VDRL: Nonreactive (04/26/2016 23:31:Sara Carreon RN) HIV Results: negative (04/26/2016 23:31:Leilani Batista RN) Hepatitis B: Negative (04/26/2016 23:31:Leilani Batista RN) Rubella: Immune (04/26/2016 23:31:Sara Carreon RN) OB/PREVIOUS HISTORY Previous Procedures: Ultrasound; NST (04/26/2016 23:31:Sara Carreon RN) Current Procedures: Ultrasound; NST (04/26/2016 23:31:Leilani Batista RN) History of Previous : No (04/26/2016 23:31:Sara Carreon RN) History of Gestational Diabetes: No (04/26/2016 23:31:Sara Carreon RN) History of PIH: No (04/26/2016 23:31:Sara Carreon RN) History of Incompetent Cervix: No (04/26/2016 23:31:Sara Carreon RN) History of Placenta Previa/Abrup: No (04/26/2016 23:31:Sara Carreon RN) History of Macrosomia: No (04/26/2016 23:31:Sara Carreon RN) History of IUGR: No (04/26/2016 23:31:Sara Carreon RN) History of Hemorrhage: No (04/26/2016 23:31:Sara Carreon RN) History of Loss/Stillborn: No (04/26/2016 23:31:Sara Carreon RN) History of : No (04/26/2016 23:31:Sara Carreon RN) History of D (Rh) Sensitization: No (04/26/2016 23:31:Sara Carreon RN) History Recurrent Loss/Stillborn: No (04/26/2016 23:31:Sara Carreon RN) History Depression/PP Depression: No (04/26/2016 23:31:Sara Carreon RN) History of Uterine Anomaly/ECHO: No (04/26/2016 23:31:Sara Carreon RN) History of Infertility: No (04/26/2016 23:31:Sara Carreon RN) History of ART Treatment: No (04/26/2016 23:31:Sara Carreon RN) History of ECHO: No (04/26/2016 23:31:Sara Carreon RN) Comments Obstetrical History: G1: 2005 10 pound 2 ounce male G2: Current (04/26/2016 23:31:Leilani Batista RN) MEDICAL HISTORY Med Hx Diabetes: No (04/26/2016 23:31:Sara Carreon RN) Med Hx Hypertension: No (04/26/2016 23:31:Sara Carreon RN) Med Hx Heart Disease: Yes (04/26/2016 23:31:Sara Carreon RN) Med Hx Autoimmune Disorder: No (04/26/2016 23:31:Sara Carreon RN) Med Hx Kidney Disease/UTI: No (04/26/2016 23:31:Sara Carreon RN) Med Hx Neurologic/Epilepsy: No (04/26/2016 23:31:Sara Carreon RN) Med Hx Psychiatric Disorders: No (04/26/2016 23:31:Sara Carreon RN) Med Hx Hepatitis/Liver Disease: No (04/26/2016 23:31:Sara Carreon RN) Med Hx Varicosities/Phlebitis: No (04/26/2016 23:31:Sara Carreon RN) Med Hx Thyroid Dysfunction: No (04/26/2016 23:31:Sara Carreon RN) Med Hx Trauma/Violence: No (04/26/2016 23:31:Sara Carreon RN) Med Hx Blood Transfusion: No (04/26/2016 23:31:Sara Carreon RN) Med Hx Pulmonary (Asthma,TB): No (04/26/2016 23:31:Sara Carreon RN) Med Hx Breast: No (04/26/2016 23:31:Sara Carreon RN) Med Hx DIE INSPECTOR Surgery: No (04/26/2016 23:31:Sara Carreon RN) Med Hx Hospitalization/Surgery: No (04/26/2016 23:31:Sara Carreon RN) Med Hx Anesthetic Complications: No (04/26/2016 23:31:Sara Carreon RN) Med Hx Abnormal Pap Smear: No (04/26/2016 23:31:Sara Carreon RN) Other Medical Diseases: No (04/26/2016 23:31:Sara Carreon RN) Med Hx Significant Family Hx: No (04/26/2016 23:31:Sara Carreon RN) Details of Med/Surg 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 (04/26/2016 23:31:Sara Carreon RN) INFECTIOUS HISTORY Inf Hx Gonorrhea: No (04/26/2016 23:31:Sara Carreon RN) Inf Hx Chlamydia: No (04/26/2016 23:31:Sara Carreon RN) Inf Hx Syphilis: No (04/26/2016 23:31:Sara Carreon RN) Inf Hx HIV/AIDS: No (04/26/2016 23:31:Sara Carreon RN) Inf Hx Human Papilloma Virus: No (04/26/2016 23:31:Sara Carreon RN) Inf Hx Pt/Partner Genital Herpes: No (04/26/2016 23:31:Sara Carreon RN) Inf Hx Tuberculosis/Exposure: No (04/26/2016 23:31:Sara Carreon RN) Inf Hx Hepatitis B,C: No (04/26/2016 23:31:Sara Carreon RN) Inf Hx Rash or Viral Illness: No (04/26/2016 23:31:Sara Carreon RN) GENETIC HISTORY Gen Hx Age >=35 at CARLO: No (04/26/2016 23:31:Sara Carroen RN) Gen Hx Thalassemia: No (04/26/2016 23:31:Sara Carreon RN) Gen Hx Congenital Heart Defect: No (04/26/2016 23:31:Sara Carreon RN) Gen Hx Neural Tube Defect: No (04/26/2016 23:31:Sara Carreon RN) Gen Hx Down's Syndrome: No (04/26/2016 23:31:Sara Carreon RN) Gen Hx Tremaine-Sachs: No (04/26/2016 23:31:Sara Carreon RN) Gen Hx Delmar: No (04/26/2016 23:31:Sara Carreon RN) Gen Hx Familial Dysautonomia: No (04/26/2016 23:31:Sara Carreon RN) Gen Hx Sickle Cell Disease/Trait: No (04/26/2016 23:31:Sara Carreon RN) Gen Hx Hemophilia/Blood Disorder: No (04/26/2016 23:31:Sara Carreon RN) Gen Hx Muscular Dystrophy: No (04/26/2016 23:31:Sara Carreon RN) Gen Hx Cystic Fibrosis: No (04/26/2016 23:31:Sara Carreon RN) Gen Hx Huntingtons Chorea: No (04/26/2016 23:31:Sara Carreon RN) Gen Hx Mental Retardation/Autism: No (04/26/2016 23:31:Sara Carreon RN) Gen Hx Tested for Fragile X: No (04/26/2016 23:31:Sara Carreon RN) Gen Hx Other Inher/Chromosomal: No (04/26/2016 23:31:Sara Carreon RN) Gen Hx Maternal Metabolic DO: No (04/26/2016 23:31:Sara Carreon RN) Gen Hx Pt Father or FOB Defect: No (04/26/2016 23:31:Sara Carreon RN) Gen Hx Other Genetic History: No (04/26/2016 23:31:Sara Carreon RN) Gen Hx Drugs/Meds since LMP: Yes (04/26/2016 23:31:Sara Careron RN) Gen Hx Medications: vitamin tylenol 1000mg for abd pain tylenol (04/26/2016 23:31:Sara Carreon RN)
--- NOTE | 2016-07-17 06:06 | L&D Current Admission ---
Current Admit Datetime Report Generated by CPN: 07/17/2016 06:00 ADMISSION INFORMATION Current Admit Date/Time: 07/10/2016 06:00 (06/23/2016 12:47:Leilani Batista RN) Reason for Admission: Induction of Labor (06/23/2016 12:47:Leilani Batista RN) Chief Complaint: Scheduled Induction of Labor (07/10/2016 07:30:Dorie Wyatt RN) Medications During : Vitamin (06/23/2016 12:47:Leilani Batista RN) EGA per Dates: 41.0 (06/23/2016 12:47:QS system process) Method of Arrival: Ambulatory (06/23/2016 12:47:Leilani Batista RN) Admitted From: Home (06/23/2016 12:47:Leilani Batista RN) Reason for Induction: Postterm (06/23/2016 12:47:Leilani Batista RN) Records Available: Yes (06/23/2016 12:47:Leilani Batista RN) General Admission Information: Reviewed (06/23/2016 12:47:Leilani Batista RN) BELONGINGS/ADVANCED DIRECTIVES Comments Regarding Disposition: see [facility] consent form (06/23/2016 12:47:Leilani Batista RN) Advance Direct for Healthcare: No, and Wants No Information (06/23/2016 12:47:Leilani Batista RN) Durable Power of Surety Bond Agent: No (06/23/2016 12:47:Leilani Batista RN) Living Will: No (06/23/2016 12:47:Leilani Batista RN) Organ Donor: No (06/23/2016 12:47:Leilani Batista RN) Pt Rights Information Given: Yes (06/23/2016 12:47:Leilani Batista RN) Pt Understands Pt Rights: Yes (06/23/2016 12:47:Leilani Batista RN) LEARNING ASSESSMENT Knowledge Level: Understands L_D Process (06/23/2016 12:47:Leilani Batista RN) Barriers to Learning: None (06/23/2016 12:47:Leilani Batisat RN) Learning Readiness: Motivated (06/23/2016 12:47:Leilani Batista RN) Learns Best By: 1 to 1 Instruction; Reading; Videos; Demonstration (06/23/2016 12:47:Leilani Batista RN) Learning Needs: Labor and Delivery Process; Pain Management; Symptoms to Report; Treatment Plan; Medication; Diagnosis; Nutrition; Equipment; Infant Care; Community Resources (06/23/2016 12:47:Leilani Batista RN) DOMESTIC VIOLANCE SCREENING Dom Viol Threatened/Hurt: No (06/23/2016 12:47:Leilani Batista RN) Hx of Abuse/Neglect past 2yrs: No (06/23/2016 12:47:Leilani Batista RN) Feel Unsafe Going Home: No (06/23/2016 12:47:Leilani Batista RN) Addt'l Observ Indicating Abuse: No (06/23/2016 12:47:Leilani Batista RN) Reason Unable to Complete Screen: N/A, Screen Completed (06/23/2016 12:47:Leilani Batista RN) Considered Personal Harm/Suicide: No (06/23/2016 12:47:Leilani Batista RN) NUTRITIONAL/FUNCTIONAL SCREENING Problem with Appetite >5 Days: No (06/23/2016 12:47:Leilani Batista RN) Chew/Swallow Difficulties: No (06/23/2016 12:47:Leilani Batista RN) Inappropriate Wt Gain/Loss: No (06/23/2016 12:47:Leilani Batista RN) Presence Skin Breakdown/Ulcer: No (06/23/2016 12:47:Leilani Batista RN) Special Diet: No (06/23/2016 12:47:Leilani Batista RN) Pt Requests Cylinder Grinder Visit: No (06/23/2016 12:47:Leilani Batista RN) Hx of Any of the Following?: N/A (06/23/2016 12:47:Leilani Batista RN) New Diagnosis of: N/A (06/23/2016 12:47:Leilani Batista RN) Requires Assist w/Ambulation: No (06/23/2016 12:47:Leilani Batista RN) Uses Assist Device to Ambulate: No (06/23/2016 12:47:Leilani Batista RN) Pt Requires Help w/ADL's: No (06/23/2016 12:47:Leilani Batista RN)
== END 2016-07-12 11:50 | disposition home or self-care (01) | DRG 774 ==
LOC: LR 06:45 → 2S 20:51
PROVIDERS: ADMIT Student in an Organized Health Care Education/Training Program; ATTEND Student in an Organized Health Care Education/Training Program
PROC: 10E0XZZ Delivery of Products of Conception, External Approach (ICD-10-PCS; principal; 2016-07-10)
PROC: 0KQM0ZZ Repair Perineum Muscle, Open Approach (ICD-10-PCS; 2016-07-10)
PROC: 4A1HXCZ Monitoring of Products of Conception, Cardiac Rate, External Approach (ICD-10-PCS; 2016-07-10)
PROC: 10907ZC Drainage of Amniotic Fluid, Therapeutic from Products of Conception, Via Natural or Artificial Opening (ICD-10-PCS; 2016-07-10)
PROC: 3E033VJ Introduction of Other Hormone into Peripheral Vein, Percutaneous Approach (ICD-10-PCS; 2016-07-10)
DX: O48.0 Post-term pregnancy (principal); O99.42 Diseases of the circulatory system complicating childbirth; I37.8 Other nonrheumatic pulmonary valve disorders; O70.1 Second degree perineal laceration during delivery; O99.824 Streptococcus B carrier state complicating childbirth; Z37.0 Single live birth; Z3A.41 41 weeks gestation of pregnancy; O99.89 Other specified diseases and conditions complicating pregnancy, childbirth and the puerperium; K08.9 Disorder of teeth and supporting structures, unspecified
CPT/HCPCS: 36415; 80307; 81005; 85025; 85027; 86592; 86850; 86900; 86901; 94760; J2540; J2590; J3490

== ENCOUNTER 2016-07-18 22:45 | Emergency (ER) | payer MEDICAID ==
--- NOTE | 2016-07-18 22:55 | ER Document Report ---
ED Medical Screen (RME) - General Stated Complaint: RIGHT LEG/FOOT SWELLING Notes: swelling started on Wednesday Swelling started near her foot and has gotten worse around her calf +Alva's of the right calf recently had a baby on 07/10 I have greeted and performed a rapid initial assessment of this patient. A comprehensive ED assessment and evaluation of the patient, analysis of test results and completion of the medical decision making process will be conducted by additional ED providers. TRAVEL OUTSIDE OF THE [place] 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
[2016-07-19 00:05] LABS: PARTIAL THROMBOPLASTIN TIME 31.2 SEC (23.5-35.8)
[2016-07-19 00:08] LABS: PROTHROMBIN TIME 12.7 SEC (11.4-15.4)
[2016-07-19 00:09] LABS: ABSOLUTE EOSINOPHILS # (AUTO) 0.3 10^3/uL (0.0-0.6); ABSOLUTE LYMPHOCYTES (AUTO) 2.6 10^3/uL (0.5-4.7); ABSOLUTE MONOCYTES (AUTO) 0.6 10^3/uL (0.1-1.4); ABSOLUTE NEUT (AUTO) 4.3 10^3/uL (1.7-8.2); BASOPHILS % (AUTO) 0.6 % (0-2); EOSINOPHILS % (AUTO) 3.9 % (0-6); HEMATOCRIT 33.2 % (36.0-47.0); HEMOGLOBIN 10.9 g/dL (12.0-15.5); HGB HCT DIFFERENCE -0.5; LYMPHOCYTES % (AUTO) 32.9 % (13-45); MEAN CORPUSCULAR HEMOGLOBIN 28.3 pg (27.0-33.4); MEAN CORPUSCULAR HGB CONC 32.8 g/dL (32.0-36.0); MEAN CORPUSCULAR VOLUME 86 fl (80-97); MONOCYTES % (AUTO) 8.1 % (3-13); RED BLOOD COUNT 3.84 10^6/uL (3.72-5.28); RED CELL DISTRIBUTION WIDTH 12.9 % (11.5-14.0); SEGMENTED NEUTROPHILS % (AUTO) 54.5 % (42-78); WHITE BLOOD COUNT 7.9 10^3/uL (4.0-10.5)
[2016-07-19] MEDS ORDERED: ENOXAPARIN SODIUM INJ 100 MG/1 ML DISP.SYRIN SUBCUT SCH (01:00)
--- NOTE | 2016-07-19 01:02 | ER Document Report ---
ED General - General Chief Complaint: Leg Pain Stated Complaint: RIGHT LEG/FOOT SWELLING TRAVEL OUTSIDE OF THE [place] IN LAST 30 DAYS: No - HPI Patient complains to provider of: right lower extremity pain Notes: Patient with right lower extremity pain and swelling ongoing for the past 4-5 days. Patient denies fevers chills nausea vomiting diarrhea. Patient's recently had her second child on July 10. Patient states still having minimal vaginal bleeding and vaginal discharge. Denies any abdominal pain. Denies history of DVT PE. - Related Data Allergies/Adverse Reactions: bees Allergy (Mild, Uncoded 07/19/16 00:18) Anaphylaxis Past Medical History - Social History Smoking Status: Never Smoker Chew tobacco use (# tins/day): No Frequency of alcohol use: None Drug Abuse: None Family History: Arthritis, CAD, Hyperlipidemia, Hypertension, Malignancy Patient has suicidal ideation: No Patient has homicidal ideation: No - Past Medical History Cardiac Medical History: Reports: Hx Heart Attack - age 3, Hx Hypertension Pulmonary Medical History: Reports: Hx Bronchitis Renal/ Medical History: Denies: Hx Peritoneal Dialysis Musculoskeltal Medical History: Reports Hx Arthritis - L wrist, Reports Hx Musculoskeletal Trauma Past Surgical History: Reports: Hx Adenoidectomy, Hx Orthopedic Surgery - L knee , Hx Tonsillectomy - Immunizations Immunizations up to date: Yes Hx Diphtheria, Pertussis, Tetanus Vaccination: Yes - 2011 Review of Systems - Review of Systems Constitutional: No symptoms reported EENT: No symptoms reported Cardiovascular: No symptoms reported Respiratory: No symptoms reported Gastrointestinal: No symptoms reported Genitourinary: No symptoms reported Female Genitourinary: No symptoms reported Musculoskeletal: Other - Right lower extremity pain and swelling Skin: No symptoms reported Hematologic/Lymphatic: No symptoms reported Neurological/Psychological: No symptoms reported Physical Exam - Vital signs Vitals: Temp Pulse Resp BP Pulse Ox 97.2 F 70 16 135/79 H 98 07/18/16 22:48 07/18/16 22:48 07/18/16 22:48 07/18/16 22:48 07/18/16 22:48 Interpretation: Normal - General General appearance: Appears well, Alert - HEENT Head: Normocephalic, Atraumatic Eyes: Normal Pupils: PERRL - Respiratory Respiratory status: No respiratory distress Chest status: Nontender Breath sounds: Normal Chest palpation: Normal - Cardiovascular Rhythm: Regular Heart sounds: Normal auscultation Murmur: No - Abdominal Inspection: Normal Distension: No distension Bowel sounds: Normal Tenderness: Nontender Organomegaly: No organomegaly - Back Back: Normal, Nontender - Extremities General upper extremity: Normal inspection, Nontender, Normal color, Normal ROM , Normal temperature General lower extremity: Normal inspection, Nontender, Edema - Patient with edema on the right leg possibly 1+ with pain to palpation of the back of the right calf no cords palpable. Left leg infected, Normal color, Normal ROM, Normal temperature, Normal weight bearing, Alva's sign - Right-sided - Neurological Neuro grossly intact: Yes Cognition: Normal Orientation: AAOx4 [place] Coma Scale Eye Opening: Spontaneous [place] Coma Scale Verbal: Oriented [place] Coma Scale Motor: Obeys Commands [place] Coma Scale Total: 15 Speech: Normal Motor strength normal: LUE, RUE, LLE, RLE Sensory: Normal - Psychological Associated symptoms: Normal affect, Normal mood - Skin Skin Temperature: Warm Skin Moisture: Dry Skin Color: Normal Course - Re-evaluation Re-evalutation: 07/19/16 01:13 Lab work showed elevated d-dimer. Patient will be given a dose of Lovenox and outpatient referral to come back to the ER for a Doppler in the a.m. Patient states understanding of these instructions states that she does not want to wait until the morning to have a Doppler performed. Patient was instructed to return at 8o'clock. - Vital Signs Vital signs: Temp Pulse Resp BP Pulse Ox 97.9 F 70 16 136/81 H 98 07/19/16 01:22 07/19/16 01:22 07/19/16 01:22 07/19/16 01:22 07/19/16 01:22 - Laboratory Result Diagrams: 07/18/16 23:45 07/18/16 00:05 Laboratory results interpreted by me: 07/18/16 07/18/16 07/18/16 00:05 23:45 23:45 Hgb 10.9 L Hct 33.2 L D-Dimer 1.40 H Potassium 3.5 L Discharge - Discharge Clinical Impression: Pain and swelling of right lower leg Condition: Good Disposition: HOME, SELF-CARE Instructions: DVT Workup Pending ([facility]), Dependent Edema ([facility]) Additional Instructions: Unfortunately your d-dimer returned elevated. We will give you a shot of a blood thinning medication called Lovenox. Please return in the morning around 8 :00 for follow-up venous Doppler to evaluate for any signs of blood clot Please elevate her leg at night Forms: Follow-Up Radiology Testing Referrals: MARIAELENA JUNIOR MD [Primary Care Provider] - Follow up as needed
[2016-07-19 01:13] LABS: ANION GAP 10 (5-19); BLOOD UREA NITROGEN 11 mg/dL (7-20); CALCIUM 8.8 mg/dL (8.4-10.2); CARBON DIOXIDE 26 mmol/L (22-30); CHLORIDE 106 mmol/L (98-107); CREATININE RESULT 0.55 mg/dL (0.52-1.25); GLUCOSE 103 mg/dL (75-110); POTASSIUM 3.5 mmol/L (3.6-5.0); SODIUM 141.8 mmol/L (137-145)
[2016-07-19 01:32] VITALS: BP 136/81
== END 2016-07-19 01:25 | disposition home or self-care (01) ==
LOC: ER 22:45
DX: O90.9 Complication of the puerperium, unspecified (principal); M79.604 Pain in right leg; R22.41 Localized swelling, mass and lump, right lower limb; I10 Essential (primary) hypertension; I25.2 Old myocardial infarction
CPT/HCPCS: 99283; 96372; 36415; 85025; 85610; 85730; 80048; 85379; J1650

== ENCOUNTER 2016-07-19 08:19 | Emergency (ER) | payer MEDICAID ==
--- NOTE | 2016-07-19 09:08 | ER Document Report ---
ED Extremity Problem, Lower - General Time seen by provider: 08:55 Mode of Arrival: Ambulatory Information source: Patient TRAVEL OUTSIDE OF THE U.[place]. IN LAST 30 DAYS: No - HPI Patient complains to provider of: Pain, Swelling Location: Ankle, Leg Occurred: Other - see HPI Pain Level: 2 <FARRUKH OAKLEY - Last Filed: 07/19/16 09:13> <FELISA VALVERDE - Last Filed: 07/19/16 10:55> - General Chief Complaint: Leg Pain Stated Complaint: RIGHT LEG AND FOOT PAIN Notes: Patient is a 30-year-old female presenting to the emergency department with complaints of right leg edema and pain. Patient was seen in the emergency department last night and given a dose of Lovenox and told to return to the ED in the morning to receive a venous Doppler of her right leg. Patient also had an elevated d-dimer; this could be due to her recently giving on 07/10/16. Patient states that she has been having this edema and pain in her right leg since Wednesday. Patient still has some vaginal bleeding/discharge from her but states that it is slowly getting better each day. Patient is not breast feeding her . Patient has a history pulmonary valve stenosis and no history of a DVT or PE. Patient has no known allergies to medications. ( FARRUKH OAKLEY) - Related Data Allergies/Adverse Reactions: bees Allergy (Mild, Uncoded 07/19/16 08:27) Anaphylaxis Past Medical History - General Information source: Patient - Social History Smoking Status: Never Smoker Cigarette use (# per day): No Chew tobacco use (# tins/day): No Frequency of alcohol use: None Drug Abuse: None Lives with: Family, Spouse/Significant other Family History: Arthritis, CAD, Hyperlipidemia, Hypertension, Malignancy Patient has suicidal ideation: No Patient has homicidal ideation: No - Past Medical History Cardiac Medical History: Reports: Other - pulmonary valve stenosis Pulmonary Medical History: Reports: Hx Bronchitis Musculoskeltal Medical History: Reports Hx Arthritis - L wrist Past Surgical History: Reports: Hx Orthopedic Surgery - L knee, Hx Tonsillectomy - Immunizations Immunizations up to date: Yes Hx Diphtheria, Pertussis, Tetanus Vaccination: Yes - 2011 <FARRUKH OAKLEY - Last Filed: 07/19/16 09:13> Review of Systems - Review of Systems Constitutional: No symptoms reported EENT: No symptoms reported Cardiovascular: No symptoms reported Respiratory: No symptoms reported Gastrointestinal: No symptoms reported Genitourinary: No symptoms reported Female Genitourinary: No symptoms reported Musculoskeletal: See HPI, Muscle pain, Leg swelling, Ankle swelling Skin: No symptoms reported Hematologic/Lymphatic: No symptoms reported Neurological/Psychological: No symptoms reported -: Yes All other systems reviewed and negative <FARRUKH OAKLEY - Last Filed: 07/19/16 09:13> Physical Exam - Vital signs Interpretation: Normal - General General appearance: Appears well, Alert In distress: Mild - HEENT Head: Normocephalic, Atraumatic Eyes: Normal Pupils: PERRL Mucous membranes: Normal - Respiratory Respiratory status: No respiratory distress Chest status: Nontender Breath sounds: Normal Chest palpation: Normal - Cardiovascular Rhythm: Regular Heart sounds: Normal auscultation Murmur: Yes - click murmur consistent with PVS - Abdominal Inspection: Normal Distension: No distension Bowel sounds: Normal Tenderness: Nontender Organomegaly: No organomegaly - Back Back: Normal, Nontender - Extremities General upper extremity: Normal inspection, Normal ROM, Normal strength General lower extremity: Nontender - to the anterior aspect of the calf, Tender - tenderness and pain to the mid upper calf, firm with redness, Edema - trace edema to the left lower extremity, more edema to the right lower extremity - Neurological Neuro grossly intact: Yes Cognition: Normal Orientation: AAOx4 [place] Coma Scale Eye Opening: Spontaneous [place] Coma Scale Verbal: Oriented [place] Coma Scale Motor: Obeys Commands Sivakumar Coma Scale Total: 15 Speech: Normal Sensory: Normal - Psychological Associated symptoms: Normal affect, Normal mood - Skin Skin Temperature: Warm Skin Moisture: Dry <BREEZY OAKLEYINE - Last Filed: 07/19/16 09:13> Course - Diagnostic Test Radiology reviewed: Reports reviewed - No DVT or SVT seen <FELISA VALVERDE - Last Filed: 07/19/16 10:55> Discharge <FARRUKH OAKLEY - Last Filed: 07/19/16 09:13> <FELISA VALVERDE - Last Filed: 07/19/16 10:55> - Discharge Clinical Impression: Pain and swelling of right lower leg Condition: Stable Disposition: HOME, SELF-CARE Additional Instructions: Venous Doppler test was negative for blood clots. The swelling which is present in both lower extremities but worse on the right is most likely due to retained fluid in the state and possibly U have strained or overused the right calf muscle. You should elevate both feet as much as possible and limit walking as much as possible for the next few days. Moist heat will help the discomfort. Take Tylenol and/or ibuprofen for pain as needed. Follow-up with your doctor this week for recheck if not improving. Scribe Attestation: 07/19/16 10:55 I personally performed the services described in the documentation, reviewed and edited the documentation which was dictated to the scribe in my presence, and it accurately records my words and actions. (FELISA VALVERDE) Scribe Documentation <FARRUKH OAKLEY - Last Filed: 07/19/16 09:13> <FELISA VALVERDE - Last Filed: 07/19/16 10:55> - Scribe Written by Scribe:: FELISA VALVERDE MD, SCRIBE 07/19/16 1053 Acting as scribe for: Dr. Valverde (FARRUKH OAKLEY) (FELISA VALVERDE)
[2016-07-19 11:05] VITALS: BP 137/85
== END 2016-07-19 11:04 | disposition home or self-care (01) ==
LOC: ER 08:19
DX: O90.89 Other complications of the puerperium, not elsewhere classified (principal); M79.89 Other specified soft tissue disorders; M79.1 Myalgia; Z86.79 Personal history of other diseases of the circulatory system; Z87.892 Personal history of anaphylaxis; Z91.030 Bee allergy status
CPT/HCPCS: 93971; 99283

== ENCOUNTER 2017-02-26 05:26 | Day surgery (SDC) | payer MEDICAID ==
[2017-02-23 12:44] LABS: HEMATOCRIT 38.7 % (36.0-47.0); HEMOGLOBIN 13.2 g/dL (12.0-15.5); HGB HCT DIFFERENCE 0.9; MEAN CORPUSCULAR HEMOGLOBIN 29.2 pg (27.0-33.4); MEAN CORPUSCULAR VOLUME 86 fl (80-97)
[2017-02-23 12:51] LABS: APPEARANCE,URINE SLIGHTLY-CLOUDY; BILIRUBIN,URINE NEGATIVE (NEGATIVE); GLUCOSE, URINE NEGATIVE (NEGATIVE); KETONES,URINE NEGATIVE (NEGATIVE); LEUKOCYTE ESTERASE,URINE TRACE (NEGATIVE); NITRITE,URINE NEGATIVE (NEGATIVE); PROTEIN,URINE NEGATIVE (NEGATIVE); URINE SPECIFIC GRAVITY 1.023; UROBILINOGEN,URINE NEGATIVE mg/dL (<2.0)
[2017-02-23 13:13] LABS: ALANINE AMINOTRANSFERASE 46 U/L (9-52); ALBUMIN 4.4 g/dL (3.5-5.0); ALKALINE PHOSPHATASE 89 U/L (38-126); ANION GAP 10 (5-19); ASPARTATE AMINO TRANSFERASE 23 U/L (14-36); BILIRUBIN,DIRECT 0.5 mg/dL (0.0-0.4); BILIRUBIN,TOTAL 0.7 mg/dL (0.2-1.3); BLOOD UREA NITROGEN 12 mg/dL (7-20); CALCIUM 9.5 mg/dL (8.4-10.2); CARBON DIOXIDE 27 mmol/L (22-30); CHLORIDE 102 mmol/L (98-107); CREATININE RESULT 0.71 mg/dL (0.52-1.25); GLUCOSE 101 mg/dL (75-110); POTASSIUM 3.7 mmol/L (3.6-5.0); SODIUM 138.6 mmol/L (137-145); TOTAL PROTEIN 7.9 g/dL (6.3-8.2)
--- NOTE | 2017-02-23 21:05 | EKG REPORT ---
SEVERITY:- NORMAL ECG - SINUS RHYTHM : Confirmed by: Nicola Patel 23-Feb-2017 21:04:06
[~2017-02-26 05:26] MED LIST: ACETAMINOPHEN 100 ML IV PRN; CEFAZOLIN 2 GM/D5W RTU 2 GM/50 ML RTUPB IV PRN; LACTATED RINGERS 1000 ML IV PRN; LIDOCAINE 0.5% INJ-PF (5 MG/ML) 50 ML SDV SUBCUT PRN
[2017-02-26] MEDS ORDERED: BUPIVACAINE HCL 0.25 % INJ/PF (2.5 MG/1 ML) 30 ML VIAL ONE (06:01)
[2017-02-26] MEDS ORDERED: FENTANYL CITRATE INJ/PF 250 MCG/5 ML AMPULE ONE (06:46)
[2017-02-26] MEDS ORDERED: HYDROMORPHONE HCL INJ/PF 2 MG/ML AMPULE ONE (06:46)
[2017-02-26] MEDS ORDERED: ACETAMINOPHEN 100 ML IV ONE (06:47)
[2017-02-26] MEDS ORDERED: IBUPROFEN INJ 800 MG/8 ML VIAL IV ONE (06:47)
[2017-02-26] MEDS ORDERED: MIDAZOLAM 2 MG/2 ML INJ ONE (06:47)
[2017-02-26] MEDS ORDERED: PROPOFOL INJ 200 MG/20 ML VIAL IV ONE (06:47)
[2017-02-26] MEDS ORDERED: ONDANSETRON HCL INJ/PF 4 MG/2 ML SDV ONE ×2 (07:03→12:17)
[2017-02-26] MEDS ORDERED: FENTANYL CITRATE INJ/PF 100 MCG/2 ML AMPUL ONE (07:04)
[2017-02-26] MEDS ORDERED: CLINDAMYCIN 900 MG/D5W RTU 50 ML IV ONE (07:56)
[2017-02-26] MEDS ORDERED: MORPHINE SULFATE 10 MG/ML INJ IV PRN (08:14)
[2017-02-26] MEDS ORDERED: PROMETHAZINE HCL INJ 25 MG/1 ML VIAL IV PRN ×2 (08:14→11:23)
[2017-02-26] MEDS ORDERED: MEPERIDINE HCL/PF INJ 25 MG/1 ML DISP.SYRIN IV PRN (08:14)
[2017-02-26] MEDS ORDERED: FENTANYL CITRATE INJ/PF 100 MCG/2 ML AMPUL IV PRN ×3 (08:14)
[2017-02-26] MEDS ORDERED: DIPHENHYDRAMINE HCL 50 MG/ML VIAL IV PRN (08:14)
[2017-02-26] MEDS ORDERED: METHYLENE BLUE 50 MG/10 ML AMPULE ONE (09:33)
[2017-02-26] MEDS: FENTANYL CITRATE INJ/PF 100 MCG/2 ML AMPUL ONE ×2 (10:42→10:47)
[2017-02-26] MEDS ORDERED: OXYCODONE-ACETAMINOPHEN 5-325 MG TABLET PO PRN ×2 (11:21→11:22)
[2017-02-26] MEDS ORDERED: HYDROMORPHONE HCL INJ/PF 2 MG/ML AMPULE IV PRN (11:22)
[2017-02-26] MEDS ORDERED: ONDANSETRON HCL INJ/PF 4 MG/2 ML SDV IV PRN (11:23)
[2017-02-26] MEDS ORDERED: DEXAMETHASONE SOD PHOSPHATE INJ 4 MG/1 ML VIAL ONE (12:17)
[2017-02-26] MEDS ORDERED: VECURONIUM BROMIDE INJ 10 MG VIAL IV ONE (12:17)
[2017-02-26] MEDS ORDERED: LIDOCAINE 2% INJ-PF (20 MG/ML) 10 ML AMPUL ONE (12:17)
[2017-02-26] MEDS ORDERED: NEOSTIGMINE METHYLSULFATE 10 MG/10 ML VIAL ONE (12:17)
[2017-02-26] MEDS ORDERED: GLYCOPYRROLATE INJ 0.4 MG/2 ML VIAL ONE (12:17)
[2017-02-26] MEDS ORDERED: SUCCINYLCHOLINE CHLORIDE INJ 200 MG/10 ML VIAL ONE (12:17)
[2017-02-26] MEDS: HYDROMORPHONE HCL INJ/PF 2 MG/ML AMPULE IV PRN ×2 (14:13→23:34)
[2017-02-26] MEDS: RINGERS SOLUTION,LACTATED 1,000 ML IV PRN (14:13)
--- NOTE | 2017-02-26 14:22 | OPERATIVE REPORT E ---
Operative Report NAME: LAKSHMI ODOM : 1985 AGE: 31Y DATE OF SURGERY: ROOM: 220 PREOPERATIVE DIAGNOSES: Dysmenorrhea and chronic pelvic pain refractory to medical therapy. POSTOPERATIVE DIAGNOSES: Dysmenorrhea and chronic pelvic pain refractory to medical therapy as well as endometriosis. OPERATION: Robotic total laparoscopic hysterectomy with bilateral salpingectomy, lysis of adhesions and cystoscopy. SURGEON: DILLON CARO M.D. INTRAOPERATIVE CONSULT: Dr. Aguilar of General Surgery. ANESTHESIA: General endotracheal. EBL: 100 mL. SPECIMEN TO PATHOLOGY: Uterus and bilateral fallopian tubes. FINDINGS: Normal-appearing uterus, tubes and ovaries, however, there was bowel epiploica adhesed to the posterior cul-de-sac and uterosacral ligaments as well as posterior aspect of the uterus. At cystoscopy, there was no evidence of bladder injury and ureters were patent with spill of methylene blue-tinted urine bilaterally. PROCEDURE: After discussing risks, benefits and alternatives of the procedure and obtaining informed consent, patient was taken to the operating room where general anesthesia was achieved. She was positioned in the dorsal lithotomy position and prepped and draped in the usual standard fashion. A George catheter was placed to drain the bladder. A speculum was placed in the patient's vagina. The cervix was grasped with a single tooth tenaculum and the cervix dilated to allow for placement of a large V-Care uterine manipulator. Prior to placing this, a stitch was placed in the anterior aspect of the cervix and was used to secure that to the V-Care uterine manipulator. The V-Care was placed. The speculum was removed and the attention turned to the patient's abdomen. The superior umbilical fold was grasped with 2 Allis clamps. Prior to making trocar incisions, each of the sites were premedicated with 0.25% Marcaine with epinephrine. An 8-mm skin incision was made in the superior fold of the umbilicus. The fascia was grasped with Kochers and elevated. It was then incised with a #11 blade. The 8-mm robotic trocar was placed in the umbilical incision and the abdomen insufflated. The patient was placed in Trendelenburg and the right and left lower quadrant robotic 8-mm trocars were each placed under direct visualization. A 5-mm air seal was placed in the patient's right upper quadrant under direct visualization. The pelvis was surveyed with the findings noted and the robot docked. Robotic scissors were placed or use in the surgeon's right hand and attaced to monopolar energy. Fenestrated graspers were placed for use in the surgeons left hand and attaced to bipolar energy. In the meantime, GeneralSurgery had been consulted. When Dr. Aguilar arrived, I was able to remove the adhesions in the posterior cul-de-sac and those attached to theposterior aspect of the uterus. This was done mainly with blunt dissection. A very small amount of monopolar cautery was used adjacent to the uterus, however, it was bowel epiploica that was attached at that point. This process took approximately 15 minutes. Next, attention was turned to the patient's tubes. Each fallopian tube was coagulated and cut near the uterus. The mesosalpinx underlying that was coagulated and then using monopolar scissors, the tubes were resected and were handed out through the assistant professor of spanish's port. The round ligaments were each coagulated and cut and a bladder flap created with sharp and blunt dissection. The utero-ovarian pedicles were coagulated and cut on either side. The uterine arteries were skeletonized. The uterine arteries were then coagulated and cut. The posterior cul-de-sac had been entered with monopolar while Dr. Aguilar was still present at the time of lysis of the posterior cul-de-sac adhesions. After coagulating and cutting the uterine arteries, the anterior cul-de-sac was entered. The colpotomy was carried around circumferentially with monopolar energy. The uterus was delivered through the vagina. The robotic scissors, which had been used in the surgeon's right hand, were removed and a needle transportation driver placed. The barbed Vicryl suture stitch, which was used for closure of the cuff, was passed up through the patient's vagina and I grasped that with the needle transportation driver. That trocar was removed from the vagina. I started at the patient's left aspect of the cuff and closed this in a continuous fashion. Of note, there was some bleeding of the uterine artery on the left cuff. The cuff was elevated to allow the ureter to fall away and this area was coagulated with bipolar cautery. A small hematoma had formed at that site but was stable during the remainder of the cuff closure. The cuff was closed in a continuous fashion, taking care to attach it to the uterosacral ligaments bilaterally. The cuff closure was carried back [facility] across the cuff. The cuff was elevated and the pelvis irrigated and hemostasis assured. Next, FloSeal was applied to the area in the posterior cul-de-sac where adhesions had been lysed and overlying the cuff and uterosacral ligaments. The pelvis was surveyed under low pressure and hemostasis again observed. The suture was cut and removed by the bedside assistant professor of spanish after undocking the right robotic trocar. This trocar was removed during the process of removing the suture. The robot was undocked at other sites, the abdomen was completely desufflated, and the patient flattened out. The attention was turned to the cystoscopic portion of the procedure. The George catheter was removed and a 70-degree cystoscope used for cystoscopy. The bladder did not show any evidence of cautery burn or suture. There was methylene-tinted blue urine spilling from both ureters. The cystoscope was removed and the George catheter replaced. I then changed gloves and went above to the patient's abdomen. We reinsufflated the abdomen which did not show any pooling of blood. The left lower quadrant trocar was removed under direct visualization. The abdomen was desufflated and the umbilical port removed. The air seal was finally removed. The skin incisions were closed with 3-0 Monocryl and Dermabond applied. The patient was taken out of dorsal lithotomy and went to recovery in stable condition. All sponge, needle, lap and instrument counts were correct x2. DICTATING PHYSICIAN: DILLON CARO M.D. [id number] PHY#: [id number] ID: [id number] JOB#: [id number] ACCT: [id number] cc:DILLON CARO M.D. > MTDD
[2017-02-26] MEDS: CEFAZOLIN 2 GM/D5W RTU 2 GM/50 ML RTUPB IV SCH ×2 (15:31→23:39)
[2017-02-26] MEDS: CLINDAMYCIN 900 MG/D5W RTU 50 ML IV SCH (16:54)
[2017-02-27] MEDS: CLINDAMYCIN 900 MG/D5W RTU 50 ML IV SCH (00:11)
[2017-02-27] MEDS: RINGERS SOLUTION,LACTATED 1,000 ML IV PRN (01:15)
[2017-02-27] MEDS: HYDROMORPHONE HCL INJ/PF 2 MG/ML AMPULE IV PRN (05:13)
[2017-02-27 06:23] LABS: HEMATOCRIT 32.4 % (36.0-47.0); HEMOGLOBIN 11.2 g/dL (12.0-15.5); HGB HCT DIFFERENCE 1.2; MEAN CORPUSCULAR HEMOGLOBIN 29.3 pg (27.0-33.4); MEAN CORPUSCULAR HGB CONC 34.6 g/dL (32.0-36.0); MEAN CORPUSCULAR VOLUME 85 fl (80-97); RED BLOOD COUNT 3.82 10^6/uL (3.72-5.28); RED CELL DISTRIBUTION WIDTH 13.1 % (11.5-14.0); WHITE BLOOD COUNT 9.5 10^3/uL (4.0-10.5)
[2017-02-27 07:35] VITALS: BP 101/58
--- NOTE | 2017-02-27 09:52 | DISCHARGE SUMMARY E ---
Discharge Summary NAME: LAKSHMI ODOM : 1985 AGE: 31Y ADMITTED: 02/26/2017 DISCHARGED: 02/27/2017 INDICATION FOR ADMISSION: Chronic pelvic pain with desire for definitive therapy with hysterectomy. HOSPITAL COURSE: The patient is a 31-year-old female who was admitted and underwent robotic assisted total laparoscopic hysterectomy with bilateral salpingectomy and lysis of adhesions as well as cystoscopy. Of note she had evidence of endometriosis on the posterior aspect of the uterus and uterosacral ligaments with bowel adhesions to this region. Dr. Aguilar of General Surgery watched as the bowel epiploica was lysed from this area. The patient did undergo cystoscopy at the time of her surgery and ureters were patent bilaterally at the end of the procedure. Her postop course was unremarkable. By the time of discharge, she was ambulating, tolerating oral intake, and had adequate pain control with oral medications. Her CBC on postop day 1 showed a white count of 9.5, hemoglobin 11.2 and hematocrit of 32.4. She was afebrile and had normal vital signs. DISCHARGE DIAGNOSIS: Endometriosis, status post robotic total laparoscopic hysterectomy with bilateral salpingectomy and lysis of adhesions and cystoscopy. DISCHARGE MEDICATIONS: Percocet 5/325 one to two p.o. q.i.d. p.r.n., #40, no refills. The patient does not have Motrin at home which I advised she could start in a few days. It was not initiated immediately postoperatively due to her significant adhesive disease in the posterior cul-de-sac. DISCHARGE INSTRUCTIONS: Patient was advised on pelvis rest and given routine postop instructions. She will follow up in clinic in 1-2 weeks, sooner should problems arise. DICTATING PHYSICIAN: DILLON CARO M.D. [id number] PHY#: [id number] ID: [id number] JOB#: [id number] ACCT: [id number] cc:DILLON CARO M.D. > MTDD
[2017-02-27] MEDS ORDERED: SENNOSIDES/DOCUSATE 8.6-50 MG 1 EACH TABLET PO ONE (10:00)
== END 2017-02-27 11:32 | disposition home or self-care (01) ==
LOC: OROUT 05:26 → 2S 11:38 → OROUT 02-27 11:32
PROVIDERS: ATTEND Specialist
PROC: 0UTC4ZZ Resection of Cervix, Percutaneous Endoscopic Approach (ICD-10-PCS; 2017-02-26)
PROC: 0UT74ZZ Resection of Bilateral Fallopian Tubes, Percutaneous Endoscopic Approach (ICD-10-PCS; 2017-02-26)
PROC: 8E0W4CZ Robotic Assisted Procedure of Trunk Region, Percutaneous Endoscopic Approach (ICD-10-PCS; 2017-02-26)
PROC: 0UT94ZZ Resection of Uterus, Percutaneous Endoscopic Approach (ICD-10-PCS; principal; 2017-02-26 07:30)
DX: N94.6 Dysmenorrhea, unspecified (principal); N92.0 Excessive and frequent menstruation with regular cycle; K66.0 Peritoneal adhesions (postprocedural) (postinfection); J45.909 Unspecified asthma, uncomplicated; G89.29 Other chronic pain; R10.2 Pelvic and perineal pain; E66.9 Obesity, unspecified; Z68.32 Body mass index [BMI] 32.0-32.9, adult; R01.1 Cardiac murmur, unspecified
CPT/HCPCS: 58571; S2900; 36415; 80053; 81001; 81025; 840; 85027; 86850; 86900; 86901; 88307; 93005; 93010; 94799; J0131; J0330; J0690; J1100; J1170; J1741; J2250; J2405; J2704; J3010; J3490; J7120; Q9968

== ENCOUNTER → 2017-10-11 | Outpatient (CLI) | payer MEDICAID ==
--- NOTE | 2017-10-11 16:05 | RADIOLOGY REPORT (SQ) ---
EXAM DESCRIPTION: LUMBAR SPINE COMPLETE COMPLETED DATE/TIME: 10/11/2017 3:00 pm REASON FOR STUDY: LOW BACK PAIN M54.5 LOW BACK PAIN COMPARISON: 12/12/2012 NUMBER OF VIEWS: Five views including obliques. TECHNIQUE: AP, lateral, oblique, and sacral radiographic images acquired of the lumbar spine. LIMITATIONS: None. FINDINGS: MINERALIZATION: Normal. SEGMENTATION: Normal. No transitional anatomy. ALIGNMENT: Normal. VERTEBRAE: Maintained height. No fracture or worrisome bone lesion. DISCS: Some narrowing is now seen of the L5-S1 interspace, concerning for DJD, new finding from prior study. Intervertebral disc spaces otherwise well-maintained. POSTERIOR ELEMENTS: Pedicles and facets are intact. No pars defect or posterior arch defects. HARDWARE: None in the spine. PARASPINAL SOFT TISSUES: Normal. PELVIS: Intact as visualized. No fractures or worrisome bone lesions. SI joints intact. OTHER: No other significant finding. IMPRESSION: No compression fractures. Narrowing now noted L5-S1 interspace. TECHNICAL DOCUMENTATION: JOB ID: [id number] [employer]- All Rights Reserved Reading location - IP/workstation name: [facility]
== END ==
LOC: OD 14:41
PROVIDERS: ATTEND Physician Assistant
DX: M54.5 Low back pain (principal)
CPT/HCPCS: 72110

== ENCOUNTER → 2018-07-18 | Outpatient (CLI) | payer MEDICAID ==
--- NOTE | 2018-07-18 13:18 | RADIOLOGY REPORT (SQ) ---
EXAM DESCRIPTION: ANKLE RIGHT COMPLETE COMPLETED DATE/TIME: 07/18/2018 1:00 pm REASON FOR STUDY: ACUTE RT ANKLE PAIN M25.571 PAIN IN RIGHT ANKLE AND JOINTS OF RIGHT FOOT COMPARISON: 09/15/2011 NUMBER OF VIEWS: Three views. TECHNIQUE: AP, lateral, and oblique radiographic images acquired of the right ankle. LIMITATIONS: None. FINDINGS: MINERALIZATION: Normal. BONES: No acute fracture or dislocation. No worrisome bone lesions. JOINTS: No effusions. SOFT TISSUES: No soft tissue swelling. No foreign body. OTHER: No other significant finding. IMPRESSION: NEGATIVE STUDY OF THE RIGHT ANKLE. NO RADIOGRAPHIC EVIDENCE OF ACUTE INJURY. TECHNICAL DOCUMENTATION: JOB ID: [id number] [employer]- All Rights Reserved Reading location - IP/workstation name: [email or web address]
== END ==
LOC: OD 12:44
PROVIDERS: ATTEND Nurse Practitioner Family
DX: M25.571 Pain in right ankle and joints of right foot (principal)

== ENCOUNTER → 2018-09-28 | Outpatient (CLI) | payer MEDICAID ==
--- NOTE | 2018-09-28 12:19 | RADIOLOGY REPORT (SQ) ---
EXAM DESCRIPTION: HIP RIGHT AP/LATERAL COMPLETED DATE/TIME: 09/28/2018 10:29 am REASON FOR STUDY: PAIN IN RIGHT HIP M25.551 PAIN IN RIGHT HIP COMPARISON: None. NUMBER OF VIEWS: Two views. TECHNIQUE: AP pelvis and additional frog-leg view of the right hip. LIMITATIONS: None. FINDINGS: MINERALIZATION: Normal. RIGHT HIP: No fracture or dislocation. No worrisome bone lesions. LEFT HIP: No fracture or dislocation. No worrisome bone lesions. PUBIS AND ISCHIUM: No fracture. PELVIS: No fracture. SACRUM: No fracture or dislocation. No worrisome bone lesions. LOWER LUMBAR SPINE: No fracture or dislocation. No worrisome bone lesions. No significant disc disea se. SOFT TISSUES: No findings. OTHER: No other significant finding. IMPRESSION: NEGATIVE STUDY OF THE RIGHT HIP. NO RADIOGRAPHIC EVIDENCE OF ACUTE INJURY. TECHNICAL DOCUMENTATION: JOB ID: [id number] [employer]- All Rights Reserved Reading location - IP/workstation name: [email or web address]
== END ==
LOC: OD 10:13
PROVIDERS: ATTEND Nurse Practitioner Family
DX: M25.551 Pain in right hip (principal)

== ENCOUNTER 2018-11-07 20:26 | Emergency (ER) | payer MEDICAID ==
--- NOTE | 2018-11-07 22:59 | RADIOLOGY REPORT (SQ) ---
4 VIEWS OF THE RIGHT KNEE HISTORY: Dog injury. Knee pain. COMPARISON: None. FINDINGS: No acute fracture or dislocation. No knee joint effusion. The joint spaces are preserved. Mild anterior knee soft tissue swelling is present. No radiopaque foreign body is identified. IMPRESSION: No acute fracture or foreign body.
[2018-11-08] MEDS ORDERED: OXYCODONE-ACETAMINOPHEN 5-325 MG TABLET PO ONE (00:41)
[2018-11-08] MEDS ORDERED: IBUPROFEN 600 MG TABLET PO ONE (00:41)
[2018-11-08 00:45] VITALS: BP 138/79
--- NOTE | 2018-11-08 00:45 | ER Document Report ---
HPI - HPI Time Seen by Provider: 11/08/18 00:29 Pain Level: 5 Context: Patient is a 32-year-old female that comes to the emergency department for chief complaint of injury to her right leg/knee. She states that her large dog ran and struck her along the side of the leg causing pain and swelling to the area. She denies falling to the ground, she denies any other injuries, she denies any other complaints. - REPRODUCTIVE Reproductive: DENIES: : Past Medical History - General Information source: Patient - Social History Smoking Status: Never Smoker Frequency of alcohol use: None Drug Abuse: None Lives with: Family Family History: Arthritis, CAD, Hyperlipidemia, Hypertension, Malignancy - Past Medical History Cardiac Medical History: Reports: Hx Heart Attack - age 3, Hx Hypertension Denies: Hx Coronary Artery Disease Pulmonary Medical History: Reports: Hx Bronchitis Denies: Hx Asthma, Hx COPD, Hx Pneumonia Neurological Medical History: Denies: Hx Cerebrovascular Accident, Hx Seizures Renal/ Medical History: Denies: Hx Peritoneal Dialysis Musculoskeletal Medical History: Reports Hx Arthritis - L wrist Past Surgical History: Reports: Hx Orthopedic Surgery - L knee, Hx Tonsillectomy - Immunizations Immunizations up to date: Yes Hx Diphtheria, Pertussis, Tetanus Vaccination: Yes - 2011 [facility] Provider Document - CONSTITUTIONAL General Appearance: WD/WN, No Apparent Distress - INFECTION CONTROL TRAVEL OUTSIDE OF THE [place] IN LAST 30 DAYS: No - HEENT HEENT: Atraumatic, Normocephalic - NECK Neck: Normal Inspection - RESPIRATORY Respiratory: Breath Sounds Normal, No Respiratory Distress - CARDIOVASCULAR Cardiovascular: Regular Rate, Regular Rhythm - GI/ABDOMEN Gastrointestinal: Abdomen Soft, Abdomen Non-Tender - BACK Back: Normal Inspection - MUSCULOSKELETAL/EXTREMETIES Musculoskeletal/Extremeties: MAEW, FROM, Tender - Tender over the right lateral lower knee and proximal tibia area. No severe swelling, bruising, abnormal erythema, abnormal heat. Range of motion intact. Normal distal neurovascular exam. Normal extremity exam is otherwise. - NEURO Level of Consciousness: Awake, Alert, Appropriate Motor/Sensory: No Motor Deficit, No Sensory Deficit - DERM Integumentary: Warm, Dry, No Rash Course - Re-evaluation Re-evalutation: Imaging shows mild soft tissue swelling at the site of the injury, there is no fracture or dislocation. Patient has full range of motion, normal capillary refill and sensation, no neurological deficits. No pain out of proportion, severe swelling, or bruising noted. Appears to be soft tissue injury, probable LCL sprain, no other concerning findings noted. Discussed with patient, placed in knee immobilizer, discussed expectations, follow-up, and return precautions. Patient states understanding and agreement. - Vital Signs Vital signs: Temp Pulse Resp BP Pulse Ox 98.0 F 90 20 139/86 H 98 11/07/18 20:34 11/07/18 20:34 11/07/18 20:34 11/07/18 20:34 11/07/18 20:34 Procedures - Immobilization Right knee Pre-Proc Neuro Vasc Exam: Normal Immobilizer type: Knee immobilizer Performed by: PCT Post-Proc Neuro Vasc Exam: Normal Alignment checked and good: Yes Discharge - Discharge Clinical Impression: Right leg pain Right knee injury Qualifiers: Encounter type: initial encounter Qualified Code(s): S89.91XA - Unspecified injury of right lower leg, initial encounter Condition: Stable Disposition: HOME, SELF-CARE Additional Instructions: Your evaluation is very suggestive of injury to the lateral ligament of the knee (LCL). This usually resolves with time. I recommend using the knee immobilizer, using the crutches, applying ice to the area 3-4 times a day, take anti-inflammatory as prescribed, and elevating the leg. If symptoms continue follow-up with orthopedics for additional evaluation and management. Return if you worsen including severe swelling or pain. Prescriptions: Naproxen 500 mg PO BID PRN #20 tablet PRN Reason: Referrals: MANA OTOOLE MD [ACTIVE STAFF] - Follow up in 1 week
== END 2018-11-08 00:52 | disposition home or self-care (01) ==
LOC: ER 20:26
DX: S89.91XA Unspecified injury of right lower leg, initial encounter (principal); W54.1XXA Struck by dog, initial encounter; Y93.89 Activity, other specified; I10 Essential (primary) hypertension
CPT/HCPCS: 99283; 73564; L1830; J3490

== ENCOUNTER → 2019-01-06 | Outpatient (CLI) | payer MEDICAID ==
--- NOTE | 2019-01-06 12:37 | RADIOLOGY REPORT (SQ) ---
EXAM DESCRIPTION: U/S ABDOMEN LIMITED W/O DOP COMPLETED DATE/TIME: 01/06/2019 11:41 am REASON FOR STUDY: RUQ PAIN (R10.11) R10.11 RIGHT UPPER QUADRANT PAIN COMPARISON: None. TECHNIQUE: Dynamic and static grayscale images acquired of the abdomen and recorded on PACS. Additio nal selected color Doppler and spectral images recorded. LIMITATIONS: None. FINDINGS: PANCREAS: No masses. Visualized pancreatic duct normal caliber. LIVER: No masses. Echotexture increased consistent with fatty infiltration. LIVER VASCULATURE: Normal directional flow of the main portal vein and hepatic veins. GALLBLADDER: Multiple gallstones. Normal wall thickness. No pericholecystic fluid. ULTRASOUND-DETECTED PONCE'S SIGN: Negative. INTRAHEPATIC DUCTS AND COMMON DUCT: CBD and intrahepatic ducts normal caliber. No filling defects. INFERIOR VENA CAVA: Normal flow. AORTA: No aneurysm identified. RIGHT KIDNEY: Normal size. Normal echogenicity. No solid or suspicious masses. No hydronephros is. No calcifications. PERITONEAL AND RIGHT PLEURAL SPACE: No ascites or effusions. OTHER: No other significant findings. IMPRESSION: Gallstones. Fatty infiltration of the liver. No acute inflammatory changes identified. TECHNICAL DOCUMENTATION: JOB ID: [id number] 2010 [employer]- All Rights Reserved Reading location - IP/workstation name: [employer]
== END ==
LOC: RAD 11:07
PROVIDERS: ATTEND Nurse Practitioner Family
DX: K80.80 Other cholelithiasis without obstruction (principal); R10.11 Right upper quadrant pain
CPT/HCPCS: 76705

== ENCOUNTER → 2019-07-14 | Outpatient (CLI) | payer MEDICAID ==
[2019-07-14 13:14] LABS: ALBUMIN 4.4 g/dL (3.5-5.0); ALKALINE PHOSPHATASE 100 U/L (38-126); AMYLASE 48 U/L (30-110); ANION GAP 11 (5-19); ASPARTATE AMINO TRANSFERASE 41 U/L (14-36); BILIRUBIN,DIRECT 0.3 mg/dL (0.0-0.4); BILIRUBIN,TOTAL 0.5 mg/dL (0.2-1.3); BLOOD UREA NITROGEN 15 mg/dL (7-20); CALCIUM 9.8 mg/dL (8.4-10.2); CARBON DIOXIDE 32 mmol/L (22-30); CHLORIDE 98 mmol/L (98-107); GLUCOSE 96 mg/dL (75-110); POTASSIUM 3.9 mmol/L (3.6-5.0); TOTAL PROTEIN 8.4 g/dL (6.3-8.2)
== END ==
LOC: OD 11:26
PROVIDERS: ATTEND Nurse Practitioner Family
DX: R10.9 Unspecified abdominal pain (principal)
CPT/HCPCS: 36415; 80053; 82150; 83690

== ENCOUNTER 2019-07-15 14:28 | Emergency (ER) | payer MEDICAID ==
[2019-07-15] MEDS ORDERED: ONDANSETRON 4 MG TAB.RAPDIS PO ONE (14:43)
--- NOTE | 2019-07-15 14:44 | ER Document Report ---
ED Medical Screen (RME) - General Chief Complaint: Abdominal Pain Stated Complaint: ABDOMINAL PAIN Time Seen by Provider: 07/15/19 14:37 Primary Care Provider: TRISHA SIMEON FNP-C [Primary Care Provider] - Follow up as needed Mode of Arrival: Ambulatory Information source: Patient Notes: Otherwise healthy 33-year-old female presents the emergency department chief complaint of mid abdominal pain. Patient reports pain has been ongoing for 1 month, worsening over the last few days. Patient now reports she has nausea, vomiting, diarrhea and had a fever 2 days ago. She states she saw her primary care provider several times over the last month for this and they told her to come here for gets worse. Exam: Mild tenderness to palpation in the mid abdomen, no guarding or rebound. I have greeted and performed a rapid initial assessment of this patient. A comprehensive ED assessment and evaluation of the patient, analysis of test results and completion of the medical decision making process will be conducted by additional ED providers. I have specifically instructed the patient or family members with the patient to immediately return to any nursing staff should anything change in the patient's condition or with their chief complaint. TRAVEL OUTSIDE OF THE [place] IN LAST 30 DAYS: No - Related Data Allergies/Adverse Reactions: bee venom protein (honey bee) Allergy (Severe, Verified 07/15/19 14:33) Anaphylaxis Past Medical History - Past Medical History Cardiac Medical History: Reports: Hx Heart Attack - age 3 tachy, Hx Hypertension - no current meds/hx of Denies: Hx Coronary Artery Disease Pulmonary Medical History: Reports: Hx Bronchitis - hx of Denies: Hx Asthma, Hx COPD, Hx Pneumonia Neurological Medical History: Denies: Hx Cerebrovascular Accident, Hx Seizures Renal/ Medical History: Denies: Hx Peritoneal Dialysis Musculoskeltal Medical History: Reports Hx Arthritis - L wrist Past Surgical History: Reports: Hx Hysterectomy, Hx Orthopedic Surgery - L knee, Hx Tonsillectomy - Immunizations Immunizations up to date: Yes Hx Diphtheria, Pertussis, Tetanus Vaccination: Yes - 2011 Physical Exam - Vital signs Vitals: Temp Pulse Resp BP Pulse Ox 97.9 F 75 16 141/90 H 98 07/15/19 14:31 07/15/19 14:31 07/15/19 14:31 07/15/19 14:31 07/15/19 14:31 Course - Vital Signs Vital signs: Temp Pulse Resp BP Pulse Ox 97.9 F 75 16 141/90 H 98 07/15/19 14:31 07/15/19 14:31 07/15/19 14:31 07/15/19 14:31 07/15/19 14:31 Doctor's Discharge - Discharge Referrals: TRISHA SIMEON FNP-C [Primary Care Provider] - Follow up as needed
[2019-07-15 15:09] LABS: ABSOLUTE EOSINOPHILS # (AUTO) 0.1 10^3/uL (0.0-0.6); ABSOLUTE LYMPHOCYTES (AUTO) 3.4 10^3/uL (0.5-4.7); ABSOLUTE MONOCYTES (AUTO) 0.4 10^3/uL (0.1-1.4); ABSOLUTE NEUT (AUTO) 3.6 10^3/uL (1.7-8.2); BASOPHILS % (AUTO) 0.6 % (0-2); EOSINOPHILS % (AUTO) 1.6 % (0-6); HEMATOCRIT 38.6 % (36.0-47.0); HEMOGLOBIN 13.6 g/dL (12.0-15.5); LYMPHOCYTES % (AUTO) 44.8 % (13-45); MEAN CORPUSCULAR HEMOGLOBIN 29.9 pg (27.0-33.4); MEAN CORPUSCULAR HGB CONC 35.3 g/dL (32.0-36.0); MEAN CORPUSCULAR VOLUME 85 fl (80-97); MONOCYTES % (AUTO) 5.8 % (3-13); PLATELET COUNT 261 10^3/uL (150-450); RED BLOOD COUNT 4.56 10^6/uL (3.72-5.28); RED CELL DISTRIBUTION WIDTH 12.8 % (11.5-14.0); SEGMENTED NEUTROPHILS % (AUTO) 47.2 % (42-78); TOTAL CELLS COUNTED % (AUTO) 100 %; WHITE BLOOD COUNT 7.7 10^3/uL (4.0-10.5)
[2019-07-15 15:23] LABS: ALBUMIN 4.4 g/dL (3.5-5.0); ALKALINE PHOSPHATASE 99 U/L (38-126); ANION GAP 8 (5-19); ASPARTATE AMINO TRANSFERASE 44 U/L (14-36); BILIRUBIN,DIRECT 0.2 mg/dL (0.0-0.4); BILIRUBIN,TOTAL 0.4 mg/dL (0.2-1.3); BLOOD UREA NITROGEN 12 mg/dL (7-20); CALCIUM 9.7 mg/dL (8.4-10.2); CARBON DIOXIDE 33 mmol/L (22-30); CHLORIDE 100 mmol/L (98-107); GLUCOSE 99 mg/dL (75-110); POTASSIUM 3.7 mmol/L (3.6-5.0); TOTAL PROTEIN 8.2 g/dL (6.3-8.2)
[2019-07-15 15:32] LABS: APPEARANCE,URINE CLEAR; BILIRUBIN,URINE NEGATIVE (NEGATIVE); COLOR,URINE YELLOW; GLUCOSE, URINE NEGATIVE (NEGATIVE); KETONES,URINE NEGATIVE (NEGATIVE); LEUKOCYTE ESTERASE,URINE NEGATIVE (NEGATIVE); NITRITE,URINE NEGATIVE (NEGATIVE); PROTEIN,URINE NEGATIVE (NEGATIVE); URINE SPECIFIC GRAVITY 1.011; UROBILINOGEN,URINE NEGATIVE mg/dL (<2.0)
[2019-07-15] MEDS ORDERED: HYDROMORPHONE HCL INJ/PF 2 MG/ML AMPULE IV ONE (15:45)
[2019-07-15] MEDS ORDERED: NORMAL SALINE 1000 ML 1,000 ML IV ONE (15:49)
--- NOTE | 2019-07-15 16:34 | ER Document Report ---
Entered by ANTOINE GONSALES SCRIBE 07/15/19 1545 Acting as scribe for:MARILIN CORTES IV, MD ED GI/ - General Chief Complaint: Abdominal Pain Stated Complaint: ABDOMINAL PAIN Time Seen by Provider: 07/15/19 14:37 Primary Care Provider: TRISHA SIMEON FNP-C [Primary Care Provider] - Follow up as needed Mode of Arrival: Ambulatory Information source: Patient Notes: This 33 year old female patient presents to the emergency department today with complaints of abdominal pain "in her belly button". Patient localizes the pain to directly over her belly button and states there is no radiation of the pain. Patient has had associated nausea, vomiting, and diarrhea. Patient has had these above mentioned symptoms intermittently for the last x1 month. Patient states she has "diarrhea all the time, nausea about every other day, and vomiting every couple days". Patient reports that she last ate this morning at 0930 and adds that it "came right out of me", further clarifying this as diarrhea. Patient denies a history of inflammatory bowel disease. TRAVEL OUTSIDE OF THE [place] IN LAST 30 DAYS: No - Related Data Allergies/Adverse Reactions: bee venom protein (honey bee) Allergy (Severe, Verified 07/15/19 14:33) Anaphylaxis Past Medical History - General Information source: Patient - Social History Smoking Status: Never Smoker Cigarette use (# per day): No Chew tobacco use (# tins/day): No Frequency of alcohol use: None Drug Abuse: None Lives with: Family Family History: Reviewed & Not Pertinent, Arthritis, CAD, Hyperlipidemia, Hypertension, Malignancy Patient has suicidal ideation: No Patient has homicidal ideation: No - Past Medical History Cardiac Medical History: Reports: Hx Heart Attack, Hx Hypertension Pulmonary Medical History: Reports: Hx Bronchitis Musculoskeletal Medical History: Reports Hx Arthritis - L wrist Past Surgical History: Reports: Hx Hysterectomy, Hx Orthopedic Surgery - L knee, Hx Tonsillectomy - Immunizations Immunizations up to date: Yes Hx Diphtheria, Pertussis, Tetanus Vaccination: Yes - 2011 Review of Systems - Review of Systems Constitutional: No symptoms reported EENT: No symptoms reported Cardiovascular: No symptoms reported Respiratory: No symptoms reported Gastrointestinal: See HPI, Abdominal pain, Diarrhea, Nausea, Vomiting Genitourinary: No symptoms reported Female Genitourinary: No symptoms reported Musculoskeletal: No symptoms reported Skin: No symptoms reported Hematologic/Lymphatic: No symptoms reported Neurological/Psychological: No symptoms reported -: Yes All other systems reviewed and negative Physical Exam - Vital signs Vitals: Temp Pulse Resp BP Pulse Ox 97.9 F 75 16 141/90 H 98 07/15/19 14:31 07/15/19 14:31 07/15/19 14:31 07/15/19 14:31 07/15/19 14:31 Interpretation: Normal - General General appearance: Alert, Other - uncomfortable - HEENT Head: Normocephalic, Atraumatic Eyes: Normal Pupils: PERRL - Respiratory Respiratory status: No respiratory distress Chest status: Nontender Breath sounds: Normal Chest palpation: Normal - Cardiovascular Rhythm: Regular Heart sounds: Normal auscultation Murmur: No - Abdominal Inspection: Obese Distension: No distension Bowel sounds: Normal Tenderness: Tender - epigastric ttp Organomegaly: No organomegaly - Back Back: Normal, Nontender - Extremities General upper extremity: Normal inspection. No: Edema General lower extremity: Normal inspection. No: Edema - Neurological Neuro grossly intact: Yes Cognition: Normal Orientation: AAOx4 Spray Coma Scale Eye Opening: Spontaneous Sivakumar Coma Scale Verbal: Oriented Sivakumar Coma Scale Motor: Obeys Commands Spray Coma Scale Total: 15 Speech: Normal Motor strength normal: LUE, RUE, LLE, RLE Sensory: Normal - Psychological Associated symptoms: Normal affect, Normal mood - Skin Skin Temperature: Warm Skin Moisture: Dry Skin Color: Normal Course - Re-evaluation Re-evalutation: 07/15/19 19:02 Patient states she feels somewhat better after medication she has received during her visit in the ED. Results of ED MSE discussed with patient and patient's significant other. All questions were answered prior to discharge. E mergency signs and symptoms, reasons for follow-up discussed with patient. - Vital Signs Vital signs: Temp Pulse Resp BP Pulse Ox 97.9 F 75 16 141/90 H 98 07/15/19 14:31 07/15/19 14:31 07/15/19 14:31 07/15/19 14:31 07/15/19 14:31 - Laboratory Result Diagrams: 07/15/19 14:45 07/15/19 14:45 Laboratory results interpreted by me: 07/15/19 07/15/19 14:45 14:45 Carbon Dioxide 33 H AST 44 H Urine Blood MODERATE H - Diagnostic Test Radiology reviewed: Reports reviewed Discharge - Discharge Clinical Impression: Abdominal pain Qualifiers: Abdominal location: periumbilical Qualified Code(s): R10.33 - Periumbilical pain Condition: Good Disposition: HOME, SELF-CARE Instructions: Abdominal Pain ([facility]) Additional Instructions: Return to the Emergency Department without delay if any worse. HOME CARE INSTRUCTIONS & INFORMATION: Thank you for choosing us for your medical needs. We hope you're satisfied with the care you received. After you leave, you must properly care for your problem and, at the same time, observe its progress. Any condition can change. Some illnesses can change rapidly over hours or days. If your condition worsens, return to the Emergency Department or see your physician promptly. ABOUT YOUR X-RAYS AND EKG'S: If you had an EKG or X-rays taken, they have been read by the Emergency Physician. The X-rays and EKG's will also be read by a Radiologist or Electric Sealing Machine Operator within 24 hours. If discrepancies are noted, you will be notified by telephone. Please be certain the ED has a correct telephone number & address where you can be reached. Also, realize that some fractures or abnormalities do not show up on initial X-rays. If your symptoms continue, see your physician. ABOUT YOUR LABORATORY TEST: If you had laboratory tests, the results have been reviewed by the Emergency Physician. Some test results (for example cultures) may not be available for several days. You will be contacted if any test result shows you need additional treatment. Please be certain the ED has a correct telephone number and address where you can be reached. ABOUT YOUR MEDICATIONS: You will receive instructions on how to take your medicine on the prescription label you receive. Additional information may be provided by the Pharmacy. If you have questions afterwards, call the ED for clarification or further instructions. Some prescribed medications may cause drowsiness. Do not perform tasks such as driving a car or operating machinery without consulting your Pharmacist. If you feel you need a refill of pain medication, your condition will need re-evaluation. Please do not call for a refill of any medication. ABOUT YOUR SIGNATURE: Signature of this document acknowledges to followin. Understanding that you received emergency treatment and that you may be released before al medical problems are known or treated. Please be certain the ED has a correct phone number & address where you can be reached. 2. Acknowledgement that you will arrange for follow-up care as recommended. 3. Authorization for the Emergency Physician to provide information to your follow-up Physician in order to maximize your care. AT ANY TIME, IF YOUR SYMPTOMS CHANGE SIGNIFICANTLY OR WORSEN OR YOU DEVELOP NEW SYMPTOMS, RETURN TO THE EMERGENCY DEPARTMENT IMMEDIATELY FOR RE-EVALUATION. OUR GOAL IS TO PROVIDE EXCELLENT MEDICAL CARE! WE HOPE THAT WE HAVE MET YOUR EXPECTATIONS DURING YOUR EMERGENCY DEPARTMENT VISIT AND THAT YOU FEEL YOU HAVE RECEIVED EXCELLENT CARE! Abdominal Pain There are many causes of abdominal pain. Pain can mean a serious problem requiring surgery (such as appendicitis). It can also be an innocent problem that goes away on its own (such as a viral infection). Often, time must pass to determine the cause of pain. The physician does not feel that hospitalization is necessary, at present. Things may change within the next 24 hours. Call the doctor or come back for re- examination if any problems occur, such as: (1) Pain that becomes more severe, steady, or becomes concentrated in one specific area. Also, pain that is more severe with movement or coughing. (2) Vomiting that persists or becomes more frequent. (3) Blood in the vomitus, urine, or bowel movements. Blood in the stool may have a tarry or black appearance. (4) Shaking chills or fever greater than 100 degrees F. (5) The abdomen becomes more distended or swollen. (6) Bowel movements cease. (7) Failure to improve as expected. Prescriptions: Tramadol HCl [Ultram 50 mg Tablet] 50 mg PO Q4HP PRN #12 tab PRN Reason: Ondansetron [Zofran Odt 4 mg Tablet] 1 - 2 tab PO Q4H PRN #15 tab.rapdis PRN Reason: For Nausea/Vomiting Referrals: TRISHA SIMEON FNP-C [Primary Care Provider] - Follow up as needed NICOLEL LOWERY MD [ACTIVE STAFF] - Follow up as needed (CALL OFFICE ON 07/17/2019 TO SCHEDULE FOLLOW UP APPOINTMENT) I personally performed the services described in the documentation, reviewed and edited the documentation which was dictated to the scribe in my presence, and it accurately records my words and actions.
--- NOTE | 2019-07-15 17:39 | RADIOLOGY REPORT (SQ) ---
EXAM DESCRIPTION: CT ABD/PELVIS WITH IV ONLY COMPLETED DATE/TIME: 07/15/2019 3:57 pm REASON FOR STUDY: Abdominal pain . DIFFUSE ABDOMINAL PAIN. PREVIOUS HYSTERECTOMY AND CHOLECYSTECTO MY. COMPARISON: None. TECHNIQUE: CT scan of the abdomen and pelvis performed using helical scanning technique with dynamic intravenous contrast injection. No oral contrast. Images reviewed with lung, soft tissue, and bone windows. Reconstructed coronal and sagittal MPR images reviewed. Delayed images for evaluation of the urinary system also acquired. All images stored on PACS. All CT scanners at this facility use dose modulation, iterative reconstruction, and/or weight based d osing when appropriate to reduce radiation dose to as low as reasonably achievable (ALARA). [facility]: Dose Right [facility]: CareDose [facility]: Dose Right [facility]: Teradose 4D [facility]: Zubie CONTRAST TYPE AND DOSE: contrast/concentration: Isovue 350.00 mg/ml; Total Contrast Delivered: 100.0 ml; Total Saline Delivered: 72.0 ml RENAL FUNCTION: GFR > 60. RADIATION DOSE: CT Rad equipment meets quality standard of care and radiation dose reduction techniq ues were employed. CTDIvol: 13.1 - 17.0 mGy. DLP: 1778 mGy-cm.. LIMITATIONS: None. FINDINGS: LOWER CHEST: No significant findings. No nodules or infiltrates. LIVER: Liver has normal size and contour. There is moderate hepatic steatosis. Focal fatty infiltra tion at the falciform ligament. No focal hepatic mass. SPLEEN: Normal size. No focal lesions. PANCREAS: No masses. No significant calcifications. No adjacent inflammation or peripancreatic fluid collections. Pancreatic duct not dilated. GALLBLADDER: Surgically absent. ADRENAL GLANDS: No significant masses or asymmetry. RIGHT KIDNEY AND URETER: No solid masses. No significant calcifications. No hydronephrosis or hyd roureter. LEFT KIDNEY AND URETER: No solid masses. No significant calcifications. No hydronephrosis or hydr oureter. AORTA AND VESSELS: No aneurysm. No dissection. Renal arteries, SMA, celiac without stenosis. RETROPERITONEUM: No retroperitoneal adenopathy, hemorrhage or masses. BOWEL AND PERITONEAL CAVITY: No masses or inflammatory changes. No free fluid or peritoneal masses. APPENDIX: Normal. PELVIS: Status post hysterectomy. No adnexal mass. Calcified pelvic phleboliths. No free fluid in the pelvis. ABDOMINAL WALL: No masses. No hernias. BONES: No significant or acute findings. OTHER: No other significant finding. IMPRESSION: 1. Moderate hepatic steatosis. No acute infectious or inflammatory process in the abdomen or pelvis. TECHNICAL DOCUMENTATION: JOB ID: [id number] Quality ID # [id number]: Final reports with documentation of one or more dose reduction techniques (e.g., Au tomated exposure control, adjustment of the mA and/or kV according to patient size, use of iterative reconstruction technique) 2010 [employer]- All Rights Reserved Reading location - IP/workstation name: [email or web address]
[2019-07-15 19:26] VITALS: BP 131/83
== END 2019-07-15 19:25 | disposition home or self-care (01) ==
LOC: ER 14:28
DX: R10.33 Periumbilical pain (principal); R11.2 Nausea with vomiting, unspecified; R19.7 Diarrhea, unspecified; I10 Essential (primary) hypertension
CPT/HCPCS: 99284; 96361; 96374; 36415; 83690; 84703; 85025; 80053; 81001; 74177; S0119; J1170; J7030

== ENCOUNTER → 2019-07-19 | Outpatient (CLI) | payer MEDICAID ==
--- NOTE | 2019-07-19 14:58 | RADIOLOGY REPORT (SQ) ---
EXAM DESCRIPTION: U/S ABDOMEN COMPLETE W/O DOP COMPLETED DATE/TIME: 07/19/2019 11:49 am REASON FOR STUDY: UNSPECIFIED ABDOMINAL PAIN R10.9 UNSPECIFIED ABDOMINAL PAIN COMPARISON: 01/14/2019 CT abdomen pelvis 05/14/2020 TECHNIQUE: Dynamic and static grayscale images acquired of the abdomen and recorded on PACS. Additio nal selected color Doppler and spectral images recorded. Note: Study does not meet criteria for complete doppler/duplex scan LIMITATIONS: None. FINDINGS: PANCREAS: No masses. Visualized pancreatic duct normal caliber. LIVER: Increased echogenicity. No mass. LIVER VASCULATURE: Normal directional flow of the main portal vein and hepatic veins. GALLBLADDER: Surgically absent. ULTRASOUND-DETECTED PONCE'S SIGN: Not applicable. INTRAHEPATIC DUCTS AND COMMON DUCT: Mild common bile duct dilatation to 8 mm, likely secondary to the prior cholecystectomy. No intrahepatic ductal dilatation. INFERIOR VENA CAVA: Normal flow. AORTA: No aneurysm. RIGHT KIDNEY: Normal size, 13 cm. Normal echogenicity. No solid or suspicious masses. No hydro nephrosis. No calcifications. LEFT KIDNEY: Normal size, 12.9 cm. Normal echogenicity. Prominent column of Jose. No mass is seen on the CT from 07/15/2019. No hydronephrosis. No calcifications. SPLEEN: Normal size. No solid masses. PERITONEAL AND PLEURAL SPACES: No ascites or effusions. OTHER: No other significant finding. IMPRESSION: No acute finding in the abdomen. TECHNICAL DOCUMENTATION: JOB ID: [id number] [facility]- All Rights Reserved Reading location - IP/workstation name: [email or web address]
== END ==
LOC: RAD 11:06
PROVIDERS: ATTEND Nurse Practitioner Family
DX: R10.9 Unspecified abdominal pain (principal)
CPT/HCPCS: 76700

== ENCOUNTER 2019-08-14 09:51 | Day surgery (SDC) | payer MEDICAID ==
[~2019-08-14 09:51] MED LIST changes: -ACETAMINOPHEN 100 ML IV PRN; -CEFAZOLIN 2 GM/D5W RTU 2 GM/50 ML RTUPB IV PRN; -LACTATED RINGERS 1000 ML IV PRN; -LIDOCAINE 0.5% INJ-PF (5 MG/ML) 50 ML SDV SUBCUT PRN; +PROPOFOL INJ 200 MG/20 ML VIAL IV ONE
[2019-08-14] MEDS ORDERED: LIDOCAINE 2% INJ (20 MG/ML) 20 ML MDV ONE (11:28)
[2019-08-14 12:21] VITALS: BP 134/80
--- NOTE | 2019-08-14 12:40 | Operative Report ---
Operative Report DATE OF SURGERY: 08/14/19 Operative Report: The risk, benefits and alternatives of the procedure including the risk of bleeding, perforation requiring surgery have been explained to the patient in detail and informed consent is obtained. Patient is placed in a left, lateral decubital position. Timeout was called. Propofol medication is administered. Rectal examination is done which did not reveal any masses, tears or fissures. An Olympus videoscope was introduced into the patient's rectum. Scope was then carefully advanced all the way to the cecum. The cecum was identified by the usual anatomical landmarks including the ileocecal valve as well as the appendiceal office. Photodocumentation is obtained. Scope was then sequentially pulled back via the various segments of the colon including the ascending colon, hepatic flexure, transverse colon, splenic flexure, descending colon finding to the rectosigmoid portions of the colon. Retroflexion maneuvers performed. PREOPERATIVE DIAGNOSIS: Change in bowel habits POSTOPERATIVE DIAGNOSIS: Random biopsies obtained right-hand side of the colon without collagenous colitis. Hepatic flexure polyp removed via snare polypectomy and retrieved. Internal hemorrhoids OPERATION: Colonoscopy with snare polypectomy. Colonoscopy with biopsy SURGEON: ALLEN CALDERON ANESTHESIA: LMAC TISSUE REMOVED OR ALTERED: As noted above. COMPLICATIONS: None. ESTIMATED BLOOD LOSS: None. INTRAOPERATIVE FINDINGS: As noted above. PROCEDURE: Patient tolerated the procedure well. No immediate postprocedure complications are noted. Patient is discharged in good condition. Discharge date 08/14/2019. Discharge diet: Regular. Discharge activity: Regular. 2 to 3-week follow-up to discuss findings. Patient is instructed to call the office or proceed to the emergency room should there be any further problems or questions. 3 to 5-year surveillance colonoscopy Wait on the pathology
== END 2019-08-14 12:17 | disposition home or self-care (01) ==
LOC: END 09:51
PROVIDERS: ATTEND Internal Medicine Gastroenterology
DX: D12.6 Benign neoplasm of colon, unspecified (principal); K64.8 Other hemorrhoids; I10 Essential (primary) hypertension; R00.0 Tachycardia, unspecified; Q25.6 Stenosis of pulmonary artery; Z79.899 Other long term (current) drug therapy; I20.9 Angina pectoris, unspecified
CPT/HCPCS: 45380; 45385; 88305 ×2; J3490; J2704; 811

== ENCOUNTER → 2020-01-01 | Day surgery (SDC) | payer MEDICAID ==
[~2020-01-01] MED LIST changes: +BUPIVACAINE HCL 0.5 % INJ/PF 30 ML SDV ONE; +LIDOCAINE 1% INJ-PF (10 MG/ML) 30 ML SDV ONE; +METHYLPREDNISOLONE ACETATE INJ 80 MG/1 ML VIAL ONE; -PROPOFOL INJ 200 MG/20 ML VIAL IV ONE
--- NOTE | 2020-01-01 14:45 | RADIOLOGY REPORT (SQ) ---
EXAM DESCRIPTION: MRI RT LOWER JOINT WITH IMAGES COMPLETED DATE/TIME: 01/01/2020 2:04 pm REASON FOR STUDY: S73.102A UNSPECIFIED SPRAIN OF LEFT HIP, INITIAL ENCOUNTER S73.102A UNSPECIFIED S PRAIN OF LEFT HIP, INITIAL ENCOUNTER COMPARISON: None. TECHNIQUE: Post arthrogram imaging is performed using T1 and T1 and T2 fat saturated sequences of th e pelvis and specific hip of interest. LIMITATIONS: None. FINDINGS: JOINT DISTENSION: Adequate. BONE MARROW: Normal. FEMORAL HEAD, NECK, AND ACETABULUM: Prominent bone along the anterior femoral head/ neck junction sug gestive of mild dysplasia. No AVN. Appropriate acetabular coverage. LABRUM AND CARTILAGE: No focal articular cartilage lesions are detected. No subchondral cysts or ero sions. Focal undercutting of the posterior labrum is potentially simply a sulcus. Labral morphology looks normal. No paralabral cyst formation, including in the anterior superior labrum. MUSCLES AND SOFT TISSUES: No tear or edema. No regional mass, fluid or bursitis. No suggestion of i nguinal adenopathy or hernia. PELVIC SOFT TISSUES: Unremarkable. SCIATIC NERVE: No mass or edema along the proximal sciatic nerve. OTHER: Limited evaluation of the left hip is unremarkable. IMPRESSION: 1. Mild dysplastic changes in the proximal right femur. This can be associated with femoroacetabular impingement. Presently, no evidence of anterior superior labral tear. Suspect a physiologic sulcus along the posterior labrum. TECHNICAL DOCUMENTATION: JOB ID: [id number] 2010 [employer]- All Rights Reserved Reading location - IP/workstation name: [email or web address]
--- NOTE | 2020-01-01 14:58 | RADIOLOGY REPORT (SQ) ---
EXAM DESCRIPTION: ARTHRO HIP INJ W/ANESTHESIA; FLUORO/NEEDLE PLACEMENT IMAGES COMPLETED DATE/TIME: 01/01/2020 1:23 pm REASON FOR STUDY: S73.102A UNSPECIFIED SPRAIN OF LEFT HIP, INITIAL ENCOUNTER S73.102A UNSPECIFIED S PRAIN OF LEFT HIP, INITIAL ENCOUNTER COMPARISON: None. FLUOROSCOPY TIME: 14 seconds 1 images saved to PACS. LIMITATIONS: None. PROCEDURE: Procedure, risks, benefits and alternatives explained to patient who then gave written c onsent. The right hip was marked and a time-out was called for correct marking verification. Entry site marked using fluoroscopic guidance. Hip prepped and draped using sterile technique. Local ane sthesia achieved using 1% lidocaine injection. Hypodermic needle introduced into the joint space un claribel direct fluoroscopic visualization. Non-ionic contrast instilled to confirm intra-articular posit ion. Dilute gadolinium solution then injected. Needle removed and entry site covered with sterile bandage. No immediate complications noted. TECHNIQUE: Digital images acquired during fluoroscopy and stored on PACS. Patient immediately take n to the MR suite for additional imaging. INJECTION LOCATION: Right hip CONTRAST TYPE AND AMOUNT: 10 mL Prohance/Saline mixture. IMPRESSION: SUCCESSFUL NEEDLE PLACEMENT AND INJECTION FOR RIGHT HIP MR ARTHROGRAM. COMMENT: Quality ID 145: Final reports for procedures using fluoroscopy that document radiation exp osure indices, or exposure time and number of fluorographic images (if radiation exposure indices are not available) TECHNICAL DOCUMENTATION: JOB ID: [id number] 2010 [employer]- All Rights Reserved Reading location - IP/workstation name: [email or web address]
== END ==
LOC: RAD 12:32
PROVIDERS: ATTEND Family Medicine
DX: S73.102A Unspecified sprain of left hip, initial encounter (principal); X58.XXXA Exposure to other specified factors, initial encounter; M25.551 Pain in right hip
CPT/HCPCS: 73722; 77002; 27095; A9576; J3490; J1040